=== PATIENT | male | born 1950 | race Caucasian/White ===

== ENCOUNTER 2023-05-20 13:56 | Outpatient (OUT) | payer MEDICARE, OTHER, SELFPAY ==
--- NOTE | 2023-05-20 14:52 | CA_ITS ---
Patient: NETTIE HERNANDEZ Exam Date: 05/20/2023 : 1950 Gender:M Ordering : DR ELIZABETH PAGE M.D. Admission #: Family : Order #: [id number] CLICK HERE TO VIEW EXAM ECHOCARDIOGRAM REPORT PROCEDURE: CARDIO PULMONARY ECHOCARDIO M/2D COMP INDICATIONS: Chronic diastolic heart failure COMPARISON: None. DESCRIPTION: COMPLETE ECHOCARDIOGRAM Real-time transthoracic echocardiography with 2D, M-mode, spectral and color flow Doppler performed. QUALITY: Technical quality was good. LEFT VENTRICLE: Normal chamber size. Mild concentric left ventricular hypertrophy. Global left ventricular systolic function is normal. LV EF: Estimated left ventricular ejection fraction is 65% DIASTOLIC: Diastolic function is indeterminate. ATRIAL SEPTUM: LEFT ATRIUM: Mild dilatation. RIGHT ATRIUM: Mild dilatation. RIGHT VENTRICLE: Normal chamber size. Normal right ventricular systolic function. TRICUSPID VALVE: Normal mobility and thickness. No stenosis with trivial regurgitation. Unable to assess right-sided pressures due to lack of measurable tricuspid regurgitation. MITRAL VALVE: Normal mobility and thickness. No evidence of mitral valve stenosis. There is no mitral annular calcification. Trivial mitral regurgitation. AORTIC VALVE: Normal trileaflet appearance. No visible sclerosis. Normal leaflet mobility. No evidence of aortic valve stenosis. No aortic regurgitation. AORTIC ROOT: Normal diameter and appearance. PULMONIC VALVE: Normal thickness and mobility. No stenosis. Trivial regurgitation. PERICARDIUM: No evidence of pericardial effusion. IVC: Collapses with inspirations. Normal size. PLEURA: CONCLUSION: 1. Mild concentric left ventricular hypertrophy with normal systolic function. Estimated LVEF is 65%. 2. Normal right ventricular size and systolic function. 3. Mild biatrial dilatation. 4. No significant valvular dysfunction. 5. Unable to assess right-sided pressures due to lack of measurable tricuspid regurgitation. Adult Echocardiography Procedure Report Left Ventricle LVEDD (3.7 - 5.6 cm): 4.48 cm LVESD (2.2 - 4.0 cm): 2.75 cm LVIVS thickness (0.6 - 1.2 cm): 1.28 cm LVPW thickness (0.5 - 1.0 cm): 1.04 cm e': 0.08 m/s E - e': 9.50 LVOT Max Gradient: 6.26 mm[Hg] LVOT Area (cm2): 1.25 m/s Peak Velocity (LVOT): 1.25 m/s Mean Velocity (LVOT): 0.79 m/s LVOT Diameter 2.16 cm Left Ventricular Ejection Fraction: 65% Left Atrium LA Volume Index (2D A2C): 41.03 ml/m2 Left Atrium Systolic Dimension: 4.08 cm Mitral Valve MV E to A Ratio: 1.19 Mitral Valve A-Wave Peak Velocity: 0.60 m/s Mitral Valve E-Wave Peak Velocity: 0.72 m/s Right Ventricle RV Internal Diastolic Dimension: 3.59 cm Aorta AO Root Diam: 2.92 cm Ascending Ao Diam: 2.93 cm Aortic Valve AoV Area (Peak Vito): 3.36 cm2, 3.36 cm2 AoV Area (VTI): 3.01 cm2, 3.01 cm2 Peak Velocity(Antegrade Flow): 1.37 m/s Peak Gradient(Antegrade Flow): 7.48 mm[Hg] Mean Velocity(Antegrade Flow): 0.88 m/s Mean Gradient(Antegrade Flow): 3.67 mm[Hg] Velocity Time Integral: 31.91 cm Tricuspid Valve Peak Velocity (Regurgitant Flow): 1.72 m/s, 1.63 m/s Pulmonic Valve Mean Gradient: 1.66 mm[Hg], 1.69 mm[Hg] Mean Velocity: 0.60 m/s, 0.61 m/s Peak Velocity: 0.95 m/s Peak Gradient: 3.82 mm[Hg], 3.44 mm[Hg] Right Atrium Right Atrium Systolic Pressure: 47.12 ml, 47.12 ml Dictated by: Elizabeth Page M.D. on 05/20/2023 at 19:25 Approved by: Elizabeth Page M.D. on 05/20/2023 at 19:30
== END 2023-05-20 13:57 | disposition home or self-care (01) ==
LOC: CARD 14:03
PROVIDERS: Visit Provider Internal Medicine Interventional Cardiology
DX: I50.22 Chronic systolic (congestive) heart failure (principal)
CPT/HCPCS: 93306

== ENCOUNTER 2023-07-05 11:01 | Outpatient (OUT) | payer MEDICARE, OTHER, SELFPAY ==
--- NOTE | 2023-07-05 | XR_ITS ---
The [address] [address] Patient Name: NETTIE HERNANDEZ MRN: [id number] date: 1950 Sex: M Assigned Patient Location: Current Patient Location: Accession/Order Number: [id number] Exam Date: 07/05/2023 11:30 Report Date: 07/06/2023 19:02 At the request of: SHON DIAZ Procedure: XR foot SAHARA min 3V STUDY: XR foot SAHARA min 3V, [id number] HISTORY: BILATERAL FOOT PAIN COMPARISON: Right foot x-rays 03/30/2020 and bilateral foot x-rays 04/24/2019. FINDINGS: Right foot: No acute fracture, dislocation, or suspicious osseous lesion. Talocalcaneal fusion hardware is intact and similar alignment. No evidence of loosening or infection. 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 Mild osteoarthritis at the dorsal talonavicular articulation, slightly worse. Minimal osteoarthritis at the first metatarsophalangeal joint, similar. Medium-sized plantar calcaneal spur, similar. First metatarsophalangeal angle (normal less than or equal to 15 degrees) -26 degrees, previously 20 degrees on 03/30/2020. Calcaneal pitch angle (normal 20-30 degrees): -34 degrees Left foot: No acute fracture, dislocation, or suspicious osseous lesion. Minimal osteophytosis at the first metatarsophalangeal joint and mild osteoarthritis at the fourth tarsometatarsal joint, similar. Mild osteoarthritis at the articulation of the calcaneus and cuboid, similar. Mild osteoarthritis at the dorsal talonavicular joint, similar. Small plantar calcaneal spur and moderate Achilles insertional enthesopathy, similar. First metatarsophalangeal angle (normal less than or equal to 15 degrees) -37 degrees, previously 38 degrees. Calcaneal pitch angle (normal 20-30 degrees): -29 degrees IMPRESSION: 1. Bilateral hallux valgus, similar on the left and mildly worse on the right. 2. Varying degrees of osteoarthritis in both feet. 3. Talocalcaneal fusion hardware in the right foot appears intact without evidence of complication. Electronically authenticated by: KYLEE MCKEON Date: 07/06/2023 19:02
== END 2023-07-05 11:02 | disposition home or self-care (01) ==
LOC: WC 11:01
PROVIDERS: Visit Provider Podiatrist Foot & Ankle Surgery
DX: M79.671 Pain in right foot (principal); L97.512 Non-pressure chronic ulcer of other part of right foot with fat layer exposed
CPT/HCPCS: 11042; 73630; G0463

== ENCOUNTER 2023-07-18 10:56 | Outpatient (OUT) | payer MEDICARE, OTHER, SELFPAY | END 2023-07-18 10:57 | disposition home or self-care (01) | LOC: WC 10:57 | PROVIDERS: Visit Provider Podiatrist Foot & Ankle Surgery | DX: L97.512 Non-pressure chronic ulcer of other part of right foot with fat layer exposed (principal) | CPT/HCPCS: 11042; 11055 ==

== ENCOUNTER 2023-08-06 10:01 | Outpatient (OUT) | payer MEDICARE, OTHER, SELFPAY | END 2023-08-06 10:02 | disposition home or self-care (01) | LOC: WC 10:01 | PROVIDERS: Visit Provider Podiatrist Foot & Ankle Surgery | DX: L84 Corns and callosities (principal); L97.512 Non-pressure chronic ulcer of other part of right foot with fat layer exposed | CPT/HCPCS: 11055; G0463 ==

== ENCOUNTER 2024-06-23 11:48 | Outpatient (OUT) | payer MEDICARE, OTHER, SELFPAY ==
--- NOTE | 2024-06-23 | XR_ITS ---
[address] [address] Patient Name: NETTIE HERNANDEZ MRN: [id number] date: 1950 Sex: M Assigned Patient Location: Current Patient Location: Accession/Order Number: [id number] Exam Date: 06/23/2024 11:55 Report Date: 06/23/2024 13:02 At the request of: SHON DIAZ Procedure: XR ankle SAHARA min 3V EXAMINATION: XR ankle SAHARA min 3V, XR foot SAHARA min 3V HISTORY: BILATERAL ANKLE PAIN COMPARISON: No relevant comparison available. FINDINGS: RIGHT FINDINGS: BONES: Subtalar fusion with 3 cannulated screws, there is bony bridging. Bone graft harvesting distal tibia. Moderate plantar enthesopathic spurring of the calcaneus. SOFT TISSUES: Negative. No visible soft tissue swelling. OTHER: Negative. LEFT FINDINGS: BONES: No acute fracture or dislocation. Mild to moderate enthesopathic spurring of the calcaneus at the Achilles and plantar insertions. Mild degenerative changes with joint space narrowing. SOFT TISSUES: Negative. No visible soft tissue swelling. OTHER: Negative. XR/XR ankle SAHARA min 3V IMPRESSION: RIGHT CONCLUSION: Subtalar fusion with bony bridging LEFT CONCLUSION: Degenerative changes Electronically authenticated by: DARRYL GRIDER Date: 06/23/2024 13:02
--- NOTE | 2024-06-23 | XR_ITS ---
[address] [address] Patient Name: NETTIE HERNANDEZ MRN: [id number] date: 1950 Sex: M Assigned Patient Location: Current Patient Location: Accession/Order Number: [id number] Exam Date: 06/23/2024 11:55 Report Date: 06/23/2024 13:02 At the request of: SHON DIAZ Procedure: XR foot SAHARA min 3V EXAMINATION: XR ankle SAHARA min 3V, XR foot SAHARA min 3V HISTORY: BILATERAL ANKLE PAIN COMPARISON: No relevant comparison available. FINDINGS: RIGHT FINDINGS: BONES: Subtalar fusion with 3 cannulated screws, there is bony bridging. Bone graft harvesting distal tibia. Moderate plantar enthesopathic spurring of the calcaneus. SOFT TISSUES: Negative. No visible soft tissue swelling. OTHER: Negative. LEFT FINDINGS: BONES: No acute fracture or dislocation. Mild to moderate enthesopathic spurring of the calcaneus at the Achilles and plantar insertions. Mild degenerative changes with joint space narrowing. SOFT TISSUES: Negative. No visible soft tissue swelling. OTHER: Negative. XR/XR foot SAHARA min 3V IMPRESSION: RIGHT CONCLUSION: Subtalar fusion with bony bridging LEFT CONCLUSION: Degenerative changes Electronically authenticated by: DARRYL GRIDER Date: 06/23/2024 13:02
--- OUTSIDE RECORDS SUMMARY | 2024-06-23 12:06 | XMS_ITS | CCD ---
Author Organization [facility] Inform ion Partnership [facility] Care Team Providers Care Counter Intelligence Technician Name Role Phone JOSE FISH Referring Unavailable NKECHI GHOSH Primary Care Unavailable LAMBERT COREY I Admitting Unavailable LAMBERT COREY I Attending Unavailable JOSE FISH Referring Unavailable NKECHI GHOSH Primary Care Unavailable Nkechi Ghosh Primary Care Provider BROOKS GAUTAM Admitting Unavailable BROOKS GAUTAM Attending Unavailable UNKNOWN, PROVIDER Primary Care Unavailable UNKNOWN, PROVIDER Referring Unavailable BROOKS GAUTAM Surgeon Unavailable [place] Procedure Practitioner Unavailab le MISC, DR SHEPHERD Admitting Unavailable MISC, DR SHEPHERD Attending Unavailable MISC, DR SHEPHERD Consulting Unavailable MISC, DR SHEPHERD Primary Care Unavailable RENETTA BUNCH Admitting Unavailable WEST, DR DARRYL Kothari Consulting Unavailable RENETTA BUNCH Attending Unavailable RENETTA BUNCH Consulting Unavailable MOUKARBEL, DR JOHNSON Attending Unavailable MOUKARBEL, DR JOHNSON Consulting Unavailable MOUKARBEL, DR JOHNSON Admitting Unavailable AUGIE, DR ARBOLEDA Consulting Unavailable WEST, DR DARRYL Kothari Consulting Unavailable MISC, DR SHEPHERD Attending Unavailable MISC, DR SHEPHERD Primary Care Unavailable MISC, DR SHEPHERD Admitting Unavailable MISC, DR SHEPHERD Consulting Unavailable MOUKARBEL, DR JOHNSON Admitting Unavailable MOUKARBEL, DR JOHNSON Attending Unavailable MOUKARBEL, DR JOHNSON Consulting Unavailable Clare West Consulting Unavailable MISC, DR SHEPHERD Attending Unavailable MISC, DR SHEPHERD Consulting Unavailable MISC, DR SHEPHERD Primary Care Unavailable MISC, DR SHEPHERD Admitting Unavailable MOUKARBEL, DR JOHNSON Admitting Unavailable MOUKARBEL, DR JOHNSON Attending Unavailable MOUKARBEL, DR JOHNSON Consulting Unavailable Nkechi Ghosh DO Primary Care Provider YARELIS MCALLISTER Attending Unavailable YARELIS MCALLISTER Attending Unavailable TIFFANIE JULIO Attending Unavailable AME DEWEY Attending Unavailable Allergies Allergy Classification Reported Allergen(s) Allergy Type Date of Onset Reaction(s) Facility Amino Acids (2 sources) Amino Acids Drug Allergy 8 [facility] Repository (3 sources) Lisinopril; Translations: [LISINOPRIL] Drug Allergy 0 Other (See Comments) [place], [place] (1 source) Lisinopril Allergy to substance 0 [facility] Healthcare Work Phone: Medications Current Medications Medication Drug Class(es) Dates Sig (Normalized) Sig (Original) amiodarone hydrochloride 100 mg oral tablet (2 sources) Antiarrhythmic take 1 tablet by mouth once daily amiodarone (PACERONE) 100 MG tablet Take 100 mg by mouth daily 0 Active apixaban 5 mg oral tablet (3 sources) Factor Xa Inhibitor apixaban (El iquis) 5 MG tablet every 12 (twelve) hours. 0 Active apixaban (ELIQUI S) 5 MG TABS tablet Take by mouth 2 times daily 0 Active ascorbic acid 500 mg oral tablet (2 sources) Vitamin C take 1 tablet by mouth once daily vitamin C (ASCORBIC ACID) 500 MG tablet Take 500 mg by mouth daily 0 Active aspirin 81 mg oral tablet (2 sources) Platelet Aggregation Inhibitor, Nonsteroidal Anti-inflammatory Drug take 0.5 tablet by mouth once daily aspirin 81 MG tablet Take 81 mg by mouth daily Take 1/2 tablet 0 Active atorvastatin 40 mg oral tablet (3 sources) HMG-CoA Reductase Inhibitor atorvastatin (Lipito r) 40 MG tablet 1 (one) time each day at the same time. 0 Active atorvastatin (LI PITOR) 40 MG tablet Take 20 mg by mouth daily 0 Active calcium chloride 0.0014 meq/ml / potassium chloride 0.004 meq/ml / sodium chloride 0.103 meq/ml / sodium lactate 0.028 meq/ml injectable solution (1 source) Start: 04-22-2020 lactated ringe rs infusion carvedilol 3.125 mg oral tablet (3 sources) alpha-Adrenergic Melissa, beta-Adrenergic Melissa carvedilol (Coreg) 3.125 MG tablet every 12 (twelve) hours. 0 Active take 1 tablet by tyrel twice daily at mealtime carvedilol (COREG) 3.125 MG tablet Take 3.125 mg by mouth 2 times daily (with meals) 0 Active cholecalciferol 0.025 mg ora l capsule (3 sources) Vitamin D cholecalciferol (Vitamin D-3) 25 MCG (1000 UT) capsule 1 capsule 1 (one) time each day at the same time. 0 Active Cholecalciferol (VITAMIN D3 PO) Take by mouth 0 Active Coenzyme Q10 (CO Q10 PO) (2 sources) Coenzyme Q10 (CO Q10 PO) Take by mouth daily 0 Active furosemide 40 mg oral tablet (3 sources) Loop Diuretic furosemide (Lasi x) 40 MG tablet 1 (one) time each day at the same time. 0 Active take 1 tablet by mouth twice aldo ly furosemide (LASIX) 40 MG tablet Take 40 mg by mouth 2 times daily 0 Active Lavender Oil oil (1 source) Lavender Oil oil as directed 0 Active LAVENDER OIL PO (2 sources) LAVENDER OIL PO Take by mouth 0 Active melatonin 5 mg oral tablet (3 sources) take 1 tablet by mouth in the morning melatonin 5 MG tablet Take 5 mg by mouth in the morning. 0 Active pantoprazole 20 mg delayed release oral tablet (2 sources) Proton Pump Inhibitor take 1 tablet by mouth once daily pantoprazole (PROTONIX) 20 MG tablet Take 20 mg by mouth daily 0 Active sacubitril 97 mg / valsartan 103 mg oral tablet (3 sources) Angiotensin 2 Receptor Melissa sacubitril-valsartan (Entresto) 97-103 MG tablet every 12 (twelve) hours. 0 Active tadalafil 20 mg oral tablet (3 sources) Phosphodiesterase 5 Inhibitor tadalafil (Cialis) 20 MG tablet 1 tablet Orally for 30 day(s) 0 Active ubidecarenone 50 mg oral capsule (1 source) coenzyme Q-10 50 MG capsule Take by mouth. 0 Active zinc gluconate 50 mg oral tablet (3 sources) take 1 tablet by mouth in the morning zinc gluconate 50 MG tablet Take 50 mg by mouth in the morning. 0 Active Problems Active Problems Problem Classification Problem Date Documented Date Episodic/Chronic Cardiac dysrhythmias (9 sources) Unspecified atrial fibrillation; Translations: [Paroxysmal atrial fibrillation] Onset: 10-23-2017 Resolved: 05-15-2023 Chronic Cataract (1 source) Cataract of right eye; Translations: [Unspecified cataract] Onset: 05-15-2023 05-15-2023 Chronic Congestive heart failure; nonhypertensive (8 sources) Chronic systolic (congestive) heart failure; Translations: [Chronic systolic heart failure] Onset: 10-23-2017 Resolved: 05-15-2023 Chronic Coronary atherosclerosis and other heart disease (2 sources) Atherosclerotic heart disease of [place] coronary artery without angina pectoris; Translations: [Atherosclerotic heart disease of [place] coronary artery without angina pectoris] Onset: 06-17-2024 Chronic Disorders of lipid metabolism (3 sources) Hyperlipidemia; Translations: [Hyperlipidemia, unspecified] Onset: 05-15-2023 05-15-2023 Chronic Esophageal disorders (1 source) Gastroesophageal reflux disease; Translations: [Gastro-esophageal reflux disease without esophagitis] Onset: 05-15-2023 05-15-2023 Chronic Essential hypertension (1 source) Essential hypertension; Translations: [Essential (primary) hypertension] Onset: 05-15-2023 05-15-2023 Chronic Osteoarthritis (2 sources) Osteoarthritis; Translations: [Unspecified osteoarthritis, unspecified site] Onset: 05-15-2023 Resolved: 05-15-2023 05-15-2023 Chronic Residual codes; unclassified (1 source) Dependence on continuous positive airway pressure ventilation; Translations: [Dependence on other enabling machines and devices] Onset: 05-15-2023 05-15-2023 Chronic Residual codes; unclassified (1 source) Obstructive sleep apnea syndrome; Translations: [Obstructive sleep apnea (adult) (pediatric)] Onset: 05-15-2023 05-15-2023 Chronic Past or Other Problems Problem Classification Problem Date Documented Da te Episodic/Chronic Acquired foot deformities (1 source) Acquired cavus deformity of foot; Translations: [Other acquired deformities of unspecified foot] Onset: 05-15-2023 Resolved: 05-15-2023 05-15-2023 Episodic Immunizations and screening for infectious disease (4 sources) Contact with and (suspected) exposure to other viral communicable diseases; Translations: [CONTCT EXPS OTH VIRL COMMUNICABL DZ] Onset: 09-23-2020 Episodic Mood disorders (1 source) Mood disorders Onset: 05-15-2023 05-15-2023 Other acquired deformities (1 source) Deformity of foot; Translations: [Unspecified acquired deformity of unspecified lower leg] Onset: 05-15-2023 Resolved: 05-15-2023 05-15-2023 Episodic Other acquired deformities (1 source) Acquired deformity of left lower leg; Translations: [Unspecified acquired deformity of left lower leg] Onset: 05-15-2023 Resolved: 05-15-2023 05-15-2023 Episodic Other aftercare (5 sources) Other alf (current) drug therapy; Translations: [OTH SENIOR SUPPORT ANALYST CURRENT DRUG THERAPY] Onset: 09-07-2020 Episodic Other connective tissue disease (4 sources) Pain in right foot; Translations: [PAIN IN RIGHT FOOT] Onset: 03-30-2020 Episodic Other connective tissue disease (1 source) Arthrodesis status; Translations: [ARTHRODESIS STATUS] Onset: 04-03-2020 Episodic Other nutritional; endocrine; and metabolic disorders (1 source) Body mass index 30+ - obesity; Translations: [Body mass index (BMI) 36.0-36.9, adult] Onset: 12-14-2022 Resolved: 05-15-2023 05-15-2023 Chronic Residual codes; unclassified (1 source) Dependence on enabling machine or device; Translations: [Dependence on other enabling machines and devices] Onset: 05-15-2023 Resolved: 05-15-2023 05-15-2023 Chronic Residual codes; unclassified (1 source) Sleep apnea; Translations: [Sleep apnea, unspecified] Onset: 05-15-2023 Resolved: 05-15-2023 05-15-2023 Chronic Residual codes; unclassified (1 source) Sleep disorder; Translations: [Sleep disorder, unspecified] Onset: 05-15-2023 Resolved: 05-15-2023 05-15-2023 Episodic Results Test Name Value Interpretation Reference Range Facility Office Visiton 06-19-2024 Follow-up visit [id number] Nettie Ramirez 1950 M Date Provider Department Center 06/19/2024 AME WARD Family History Problem Relation Age of Onset Coronary artery disease Mother Heart attack Mother Stroke Mother Family Status - Relation Status Age at Mother Level of Service:07523 [place] OFFICE/OUTPATIENT ESTABLISHED LOW MDM 20 MIN Normal [facility] ECHOCARDIO M/2D COMPLETEon 0 03-07-2021 ECHOCARDIO M/2D COMPLETE Patient: NETTIE RAMIREZ Exam Date: 03/07/2021 : 1950 Gender:M Ordering : BROOKS GAUTAM MD Admission #: [id number] Family : Order #: [id number] CLICK HERE TO VIEW EXAM ECHOCARDIOGRAM REPORT PROCEDURE: CARDIO PULMONARY ECHOCARDIO M/2D COMP INDICATIONS: Chronic systolic heart failure COMPARISON: None. DESCRIPTION: COMPLETE ECHOCARDIOGRAM Real-time transthoracic echocardiography with 2D, M-mode, spectral and color flow Doppler performed. QUALITY: Technical quality was good. LEFT VENTRICLE: Normal chamber size. Normal left ventricular wall thickness. LV EF: Normal left ventricular ejection fraction, (>55%). DIASTOLIC: Normal diastolic function. ATRIAL SEPTUM: Visually appears intact. LEFT ATRIUM: Normal chamber size. RIGHT ATRIUM: Mild dilatation. RIGHT VENTRICLE: Normal chamber size. Normal right ventricular function. TRICUSPID VALVE: Normal mobility and thickness. No stenosis with trace regurgitation. No evidence of pulmonary hypertension. MITRAL VALVE: Normal mobility and thickness. No mitral valve prolapse. No evidence of mitral valve stenosis. There is no mitral annular calcification. Trace mitral regurgitation. AORTIC VALVE: Normal trileaflet appearance. Normal leaflet mobility. No evidence of aortic valve stenosis. Trace aortic regurgitation. AORTIC ROOT: Normal diameter and appearance. PULMONIC VALVE: Normal thickness and mobility. No stenosis. PERICARDIUM: No evidence of pericardial effusion. IVC: Collapses with inspirations. CONCLUSION: Global left ventricular systolic function is normal; ejection fraction is estimated to be 60-65%. Mild right atrial enlargement. The right ventricle is normal in size and systolic function. No significant valvular abnormalities. Adult Echocardiography Procedure Report Left Ventricle LVEDD (3.7 - 5.6 cm): 4.38 cm LVESD (2.2 - 4.0 cm): 2.71 cm LVIVS thickness (0.6 - 1.2 cm): 1.09 cm LVPW thickness (0.5 - 1.0 cm): 8.54 mm e': 7.68 cm/s E - e': 10.30 LVOT Area (cm2): 4.15 cm2 Peak Velocity (LVOT): 98.70 cm/s LVOT Diameter 2.30 cm Left Ventricular Ejection Fraction: 68.50 % Left Ventricular Ejection Fraction (A2C): 65 % Left Ventricular Ejection Fraction (A4C): 65 % Left Atrium LA Volume Index (2D A2C): 32.10 ml/m2 Left Atrium Systolic Dimension: 4.00 cm Left Atrium Systolic Area(A2C): 22.60 cm2 Left Atrium Systolic Area(A4C): 23.70 cm2 Left Atrium Systolic Volume(A2C): 76235 mm3 Left Atrium Systolic Volume(A4C): 88584 mm3 Mitral Valve MV E to A Ratio: 1.10 Mitral Valve A-Wave Peak Velocity: 63.20 cm/s Mitral Valve E-Wave Peak Velocity: 76.00 cm/s Deceleration [place]: 4120 mm/s2 Mitral Valve A-Wave Peak Velocity: 71.10 cm/s Mitral Valve E-Wave Peak Velocity: 79.00 cm/s Right Ventricle RV Internal Diastolic Dimension: 3.46 cm Aorta AO Root Diam: 3.00 cm Aortic Valve Peak Velocity (Antegrade Flow): 134.00 cm/s AoV Area (Peak Vito): 3.02 cm2 Peak Velocity(Antegrade Flow): 140.00 cm/s Peak Gradient(Antegrade Flow): 8 mm[Hg] Tricuspid Valve Pulmonic Valve Peak Velocity: 84.20 cm/s Peak Gradient: 3 mm[Hg] Right Atrium Dictated by: Mckayla Geller M.D. on 03/07/2021 at 14:59 Approved by: Mckayla Geller M.D. on 03/07/2021 at 15:01 Normal [facility] BASIC METABOLIC PANELon - Calcium [Mass/Vol] 9.2 mg/dL Normal 8.6-10.3 [facility] Comment on above: Performed By: #### 0 [id number] #### [facility] [address] [place] [address], [facility] Chloride [Moles/Vol] 99 mmol/L Normal 98-107 [facility] Comment on above: Performed By: #### 0 0071 #### [facility] [address] [place] [address], [facility] CO2 [Moles/Vol] 27 mmol/L Normal 21-31 [facility] Comment on above: Performed By: #### 0 0071 #### [facility] [address] [place] [address], [place] Creatinine [Mass/Vol] 0.82 mg/dL Normal 0.70-1.30 [facility] Comment on above: Performed By: #### 0 0071 #### [facility] [address] [place] [address], [place] GFR/1.73 sq M.predicted among blacks MDRD (S/P/Bld) [Vol rate/Area] mL/min/{1.73_m2} Normal >60 [facility] Comment on above: Performed By: #### 0 0071 #### [facility] [address] [place] [address], [place] GFR/1.73 sq M.predicted among non-blacks MDRD (S/P/Bld) [Vol rate/Area] mL/min/{1.73_m2} Normal >60 [facility] Comment on above: Performed By: #### 0 0071 #### [facility] [address] [place] [address], [place] Glucose [Mass/Vol] 117 mg/dL High 70-100 [facility] Comment on above: Performed By: #### 0 0071 #### [facility] [address] [place] [address], [place] Potassium [Moles/Vol] 4.2 mmol/L Normal 3.5-5.1 [facility] Comment on above: Performed By: #### 0 0071 #### [facility] [address] [place] [address], [place] Sodium [Moles/Vol] 134 mmol/L Low 136-145 [facility] Comment on above: Performed By: #### 0 0071 #### [facility] [address] [place] [address], [place] Urea nitrogen [Mass/Vol] 15 mg/dL Normal 7-25 [facility] Comment on above: Performed By: #### 0 0071 #### [facility] [address] Cardiovascular Lab Reporton 01-04-2021 Cardiovascular Lab Report [facility] Patient Name: Nettie Ramirez [facility] MR #: [id number] Physician: Brooks Gautam MD Department of Service Date: 01/04/2021 Medicine Birthdate: 1950 Division of Room #: 3AB [id number] Cardiology Adult Cardiovascular Services [facility] [address] [place], [place] [address] Cardiovascular Laboratory Report ATRIAL FIBRILLATION ABLATION PROCEDURE NOTE DATE OF PROCEDURE: 01/04/2021 PERFORMING PHYSICIAN: Dr. Brooks Gautam CONSENT: Patient NAME OF THE PROCEDURE: Pulmonary Vein Isolation and Comprehensive EP study. INDICATIONS FOR PROCEDURE: 1. Persistent atrial fibrillation non responsive to pharmacologic therapy. PROCEDURES PERFORMED: 1. Sonosite guided venous access as noted below and images stored. 2. Comprehensive EP study and catheter ablation for persistent atrial fibrillation through the pulmonary vein isolation technique. This includes right atrial recording and pacing, His bundle recording and right ventricular recording and pacing. 3. Intracardiac EP 3D mapping. 4. Intracardiac echocardiogram 5. Left atrial and coronary sinus recording and pacing to assess ablation results. 6. Left heart pressure measurements and LV pacing and recording. 7. Induction of arrhythmia and testing of ablation results using intravenous adenosine infusion. 8. Fluroscopy. FLUROSCOPY: 2min 40s/ 55mGray PROCEDURE NOTE: Risks, benefits and alternatives of the procedure were discussed with the patient and family who agreed to proceed. Please refer to my consult note for details of the discussion and of indications. The patient is a 70-year-old gentleman with a previous history of atrial fibrillation that was noted to have recurred despite medications with the amiodarone. Given the symptoms, he presented for AFib ablation The patient was brought to the EP lab and a procedural pause was performed identifying the patient, the procedure. The patient presented in SR and JEAN-PIERRE was performed to rule out CRISTINA clot. ICE imaging was used to rule out CRISTINA clot. Both the groins were then prepared and draped. Ultrasound was used to determine the course and patency of the femoral veins on both sides and they were noted to be patent and the image stored in Merge. After infiltration with 1% lidocaine, 4 venous sheaths were placed in the right as noted below and a radial arterial line was placed by Anesthesia team. RFV: 8Fx4 ThermoCool SF Bi-Directional over SL1/ Vizigo, SL1:Pentaray, ICE catheter. 8Fx1 CS Catheter (EZ Steer) 10,000U Heparin bolus was given followed by continuous intravenous drip to target ACT around 350. An intracardiac ultrasound catheter was inserted into the right atrium to examine the right atrial anatomy, atrial septum, pulmonary vein anatomy and to monitor for pericardial effusion and guide transseptal access. At baseline, there was mild pericardial effusion and no CRISTINA clot but the anatomy suggested a rotated heart. LA was noted to be mildly enlarged and patient has lipomatous hypertrophy. Esophagus was mapped using the DataRPMtar and PlaceBloggerUND 3D mapping software and noted to be in slanted position towards the left side along the path of left WACA psoteriorly. Double transseptal access technique was used to cross to the left side. Following the first transeptal access, which was achieved via puncture of the thinner aspect of the septum using Staci needle, Pentaray catheter was placed in the left atrium. Mean LA pressures were noted to 23mmHg at baseline. LV pacing revealed concentric VA conduction. Following this, a 2nd transseptal was performed, which also documented the pressures of 24 mmHg. With repeat access, SL1 sheath was exchanged over a wire to 8.5F Vizigo sheath. Pulmonary vein and left atrial anatomic mapping was performed using a 3-D CARTO computer-based mapping system. Identification of the pulmonary vein ostia was assisted by the left atrial signals on the ablation catheter, the ICE catheter and the Pentaray catheter placed in the individual pulmonary veins. There was signals noted in all the veins. A temperature probe was placed in the esophagus to monitor and avoid rise of temperature by more than a degree celsius. Wide area circumferential ablation technique (WACA) was then performed. Power settings were 30watts in the anterior aspect of WACA and 25W while ablating on the posterior wall as well as the roof. There was a deep ridge which made contact on the anterior WACA challenging. Following left WACA, entrance block was observed. The esophagus was more towards the right side and max temp of rise to 37C from 35.5C. Right sided PVI was then performed using a WACA approach with care to pace the anterior aspect of WACA and russel to ensure there was no phrenic capture. Upon completion of the right sided WACA, entrance block was noted. Thereafter perivenous (more content not included)... Normal [facility] POC GLUCOSE LABon 01-04-2021 Glucose [Mass/Vol] 121 mg/dL High 70-100 [facility] Comment on above: Performed By: #### [id number] #### [facility] [address] [facility] [place] [address], [facility] CREATININE BLOODon Creatinine [Mass/Vol] 0.77 mg/dL Normal 0.70-1.30 [facility] Comment on above: Performed By: #### 2 5656 #### [facility] [address] [facility] [place] [address], [facility] GFR/1.73 sq M.predicted among blacks MDRD (S/P/Bld) [Vol rate/Area] mL/min/{1.73_m2} Normal >60 [facility] Comment on above: Performed By: #### 2 [id number] #### [facility] [address] [facility] [place] [address], [facility] GFR/1.73 sq M.predicted among non-blacks MDRD (S/P/Bld) [Vol rate/Area] mL/min/{1.73_m2} Normal >60 [facility] Comment on above: Performed By: #### 2 5656 #### [facility] [address] [place] [address], [facility] CTA CHESTon 12-26-2020 CTA CHEST [facility] Department of Radiology [address] [place] [id number] ======== Patient Name: NETTIE RAMIREZ : 1950 Sex: M Age: Race: White Pt. Location: [id number] Patient Status: O Ordered Date: 11/04/2020 2:40:00 PM Completed Date: 12/26/2020 12:12 PM Requesting Provider: BROOKS GAUTAM Attending Provider: BROOKS GAUTAM Report Copy To: ELIZABETH CRAVEN V Signs & Symptoms: I48.0 Paroxysmal atrial fibrillation I10 History: Claudette patient will need labs Schedule week of December 26. MEDICARE no pc required [id number] 11/09/20 *kw Comments: Pre-Ablation on 01/04/21 , gaited Exam: CTA CHEST ======== Clinical history: Paroxysmal atrial fibrillation Technique: CT angiography of the thoracic aorta was performed following the intravenous administration of 100 mL Omnipaque 350. Multidetector CT angiogram performed through the thoracic aorta without complication, including source images and maximum intensity projection 3-D images displayed and reviewed on a PACS workstation by the radiologist. Automated exposure control was utilized. Comparison: 10/08/2017 Findings: The thoracic aorta is normal in caliber throughout its course. No aneurysm is seen. No significant atherosclerotic changes are identified. The origins and great vessels are widely patent. There are multiple prominent mediastinal lymph nodes, none of which appear pathologically enlarged. No hilar adenopathy is seen. There is a 7 mm poorly defined semisolid nodule in the posterior aspect of the right lower lobe (series 4 image 291). There is minimal left basilar scar and/or atelectasis. Otherwise clear from active process. There is residual contrast material and air within the slightly distended esophagus. Impression: 1. Normal CT angiogram of the thoracic aorta. 2. 7 mm semisolid nodule in the right lower lobe. A repeat CT thorax in 6 months is recommended. All CT scans at this facility use dose modulation, iterative reconstruction, and/or weight based dosing when appropriate to reduce radiation dose to as low as reasonably achievable. The Electronically signed: Darryl Posey. Transcribed by: [email or web address], User Resident: Electronically Signed by: DARRYL POSEY @ 12/26/2020 12:41 PM Normal [facility] Comment on above: Order Comment: Pre-A blation on 01/04/21 , gaited Covid-19 PCR (CVDTB)on 09-06 EUA Statement SEE BELOW Normal [facility] Comment on above: Result Comment: This test is not yet approved or cleared by the [place] FDA. When there are no FDA-approved or cleared tests available, and other criteria are met, FDA can make tests available under an emergency access mechanism called an Emergency Use Authorization (EUA). The EUA for this test is supported by the Sensor Technician of Health and Human Service?s (HHS?s) declaration that circumstances exist to justify the emergency use of in vitro diagnostics for the detection and/or diagnosis of the virus that causes COVID-19. This EUA will remain in effect (meaning this test can be used) for the duration of the COVID-19 declaration justifying emergency of IVDs, unless it is terminated or revoked by FDA (after which the test may no longer be used). When diagnostic testing is negative, the possibility of a false negative should be considered in the context of a patients recent exposures and the presence of clinical signs and symptoms consistent with SARS-CoV-2. Performed By: #### [facility] ####[facility] [address] [id number] Archuleta SARS-CoV-2 (COVID-19) RNA EMMANUEL+probe Ql (Unsp spec) Not detected Normal NOT DETECTED [facility] Comment on above: Result Comment: This test is not yet approved or cleared by the [place] FDA. When there are no FDA-approved or cleared tests available, and other criteria are met, FDA can make tests available under an emergency access mechanism called an Emergency Use Authorization (EUA). The EUA for this test is supported by the Sensor Technician of Health and Human Service's (HHS's) declaration that circumstances exist to justify the emergency use of in vitro diagnostics for the detection and/or diagnosis of the virus that causes COVID-19. This EUA will remain in effect (meaning this test can be used) for the duration of the COVID-19 declaration justifying emergency of IVDs, unless it is terminated or revoked by FDA (after which the test may no longer be used). Performed By: #### [facility] ####[facility] [address] [place] [address] Kathe CBC AUTO DIFFon 09-19-2020 BASO # 0.0 103/ul Normal 0.0-0.1 [facility] Comment on above: Performed By: #### C BC ####[facility] [address] [place] [address] Kathe Basophils/100 WBC (Bld) 0.3 % Normal 0.2-2.0 [facility] Comment on above: Performed By: #### C BC ####[facility] [address] [place] [address] Kathe EO # 0.1 103/ul Normal 0.0-0.7 [facility] Comment on above: Performed By: #### C BC ####[facility] [address] [place] [address] Kathe Eosinophils/100 WBC (Bld) 1.5 % Normal 0.9-7.0 [facility] Comment on above: Performed By: #### C BC ####[facility] [address] [place] [address] Kathe Erythrocyte distribution width (RBC) [Ratio] 13.0 % Normal 11.0-15.0 [facility] Comment on above: Performed By: #### C BC ####[facility] [address] [place] [address] Kathe Hematocrit (Bld) [Volume fraction] 45.1 % Normal 42.0-54.0 [facility] Comment on above: Performed By: #### C BC ####[facility] [address] [place] [address] Kathe Hemoglobin (Bld) [Mass/Vol] 14.3 g/dL Normal 14.0-18.0 [facility] Comment on above: Performed By: #### C BC ####[facility] [address] [place] [address] Kathe IG # 0.01 10e3/ul Normal 0.00-0.03 [facility] Comment on above: Performed By: #### C BC ####[facility] X[address] [place] [address] Kathe IG % 0.1 % Normal 0.0-0.5 [facility] Comment on above: Performed By: #### C BC ####[facility] Z[address] [place] [address] Kathe LYMPH # 1.5 103/ul Normal 1.2-3.8 [facility] Comment on above: Performed By: #### C BC ####[facility] Q[address] [place] [address] Kathe Lymphocytes/100 WBC (Bld) 22.8 % Normal 20.5-60.0 [facility] Comment on above: Performed By: #### C BC ####[facility] Zipj[address] [place] [address] Kathe MANUAL DIFF REQ NO Normal [facility] Comment on above: Performed By: #### C BC ####[facility] Our[address] [place] [address] Kathe MCH (RBC) [Entitic mass] 31.3 pg Normal 25.9-34.0 [facility] Comment on above: Performed By: #### C BC ####[facility] [address] [place] [address] Kathe MCHC (RBC) [Mass/Vol] 31.7 g/dL Normal 29.9-35.2 [facility] Comment on above: Performed By: #### C BC ####[facility] M[address] [place] [address] Kathe MCV (RBC) [Entitic vol] 98.7 fL Critically high 80.0-94.0 [facility] Comment on above: Performed By: #### C BC ####[facility] [address] [id number] Archuleta MONO # 0.8 103/ul Normal 0.3-0.8 [facility] Comment on above: Performed By: #### C BC ####[facility] [address] [id number] Garciaen Monocytes/100 WBC (Bld) 12.2 % Critically high 1.7-12.0 [facility] Comment on above: Performed By: #### C BC ####[facility] Jrjljoydlo2061 [address] Garciaen NEUT # 4.2 103/ul Normal 1.4-6.5 [facility] Comment on above: Performed By: #### C BC ####[facility] [address] [place], [place] [address]oanh Archuleta Neutrophils/100 WBC (Bld) 63.1 % Normal 43.0-75.0 [facility] Comment on above: Performed By: #### C BC ####[facility] [address] [place], [place] [id number] Archuleta Platelet mean volume (Bld) [Entitic vol] 9.8 fL Normal 9.5-13.5 [facility] Comment on above: Performed By: #### C BC ####[facility] [address] [place], [place] [address]Geroanh Garciaen PLT 137 103/ul Critically low 150-[address] [facility] Comment on above: Performed By: #### C BC ####[facility] [address] [id number] Kathe RBC 4.57 106/ul Critically low 4.70-6.10 [facility] Comment on above: Performed By: #### C BC ####[facility] [address] [id number] Kathe WBC 6.7 103/ul Normal 4.0-11.0 [facility] Comment on above: Performed By: #### C BC ####[facility] [address] [place], [place] [address]NalikeLizett Archuleta Covid-19 PCR (CVDTB)on 09-06 EUA Statement SEE BELOW Normal [facility] Comment on above: Result Comment: This test is not yet approved or cleared by the [place] FDA. When there are no FDA-approved or cleared tests available, and other criteria are met, FDA can make tests available under an emergency access mechanism called an Emergency Use Authorization (EUA). The EUA for this test is supported by the Sensor Technician of Health and Human Service?s (HHS?s) declaration that circumstances exist to justify the emergency use of in vitro diagnostics for the detection and/or diagnosis of the virus that causes COVID-19. This EUA will remain in effect (meaning this test can be used) for the duration of the COVID-19 declaration justifying emergency of IVDs, unless it is terminated or revoked by FDA (after which the test may no longer be used). When diagnostic testing is negative, the possibility of a false negative should be considered in the context of a patients recent exposures and the presence of clinical signs and symptoms consistent with SARS-CoV-2. Performed By: #### C VDTB #### [facility] [address] [place], [place] [address] Lizett Archuleta SARS-CoV-2 (COVID-19) RNA EMMANUEL+probe Ql (Unsp spec) Not detected Normal NOT DETECTED [facility] Comment on above: Result Comment: This test is not yet approved or cleared by the [place] FDA. When there are no FDA-approved or cleared tests available, and other criteria are met, FDA can make tests available under an emergency access mechanism called an Emergency Use Authorization (EUA). The EUA for this test is supported by the [place] of Health and Human Service's (HHS's) declaration that circumstances exist to justify the emergency use of in vitro diagnostics for the detection and/or diagnosis of the virus that causes COVID-19. This EUA will remain in effect (meaning this test can be used) for the duration of the COVID-19 declaration justifying emergency of IVDs, unless it is terminated or revoked by FDA (after which the test may no longer be used). Performed By: #### C VDTB #### [facility] [address] [id number] Lizett Kathe PROF CHEM 8 (BAS METB)on Anion gap [Moles/Vol] 17.3 mmol/L Normal [facility] Comment on above: Performed By: #### B MP #### [facility] [address] [id number] Lizett Kathe Calcium [Mass/Vol] 9.5 mg/dL Normal 8.4-10.2 [facility] Comment on above: Performed By: #### B MP #### [facility] [address] [address] Lizett Kathe Chloride [Moles/Vol] 103 mmol/L Normal 98-107 [facility] Comment on above: Performed By: #### B MP #### [facility] [address] [place] [address] Lizett Kathe CO2 [Moles/Vol] 25.2 mmol/L Normal 22.0-30.0 [facility] Comment on above: Performed By: #### B MP #### [facility] [address] [place], [place] [address] Lizett Kathe Creatinine [Mass/Vol] 0.85 mg/dL Normal 0.66-1.25 [facility] Comment on above: Performed By: #### B MP #### [facility] [address] [place], [place] [address] Lizett Kathe EGFR-AF ESTONIAN >60 Normal >=60 [facility] Comment on above: Performed By: #### B MP #### [facility] [address] [place], [place] [address] Lizett Kathe EGFR-NON AF ESTONIAN >60 Normal >=60 [facility] Comment on above: Performed By: #### B MP #### [facility] [address] [address] Lizett Kathe Glucose [Mass/Vol] 102 mg/dL Normal 74-106 [facility] Comment on above: Performed By: #### B MP #### [facility] [address] [place], [place] [address] Lizett Kathe Potassium [Moles/Vol] 4.5 mmol/L Normal 3.4-5.0 [facility] Comment on above: Performed By: #### B MP #### [facility] [address] [place], [place] [address] Lizett Kathe Sodium [Moles/Vol] 141 mmol/L Normal 137-145 [facility] Comment on above: Performed By: #### B MP #### [facility] [address] [place], [place] [address] Lizett Kathe Urea nitrogen [Mass/Vol] 20.0 mg/dL Normal 9.0-20.0 [facility] Comment on above: Performed By: #### B MP #### [facility] [address] [place], [place] [address] Lizettoanh Garciaen Urea nitrogen/Creatinine [Mass ratio] 23.5 mg/mg Normal [facility] Comment on above: Performed By: #### B MP #### [facility] [address] [place], [place] [address] CHEST W CONon 09-07-2020 CT CHEST W CON EXAMINATION: CT CHES T W CON HISTORY: Atrial fibrillation hypertension COMPARISON: No relevant comparison available. TECHNIQUE: Multi-planar CT images were created with IV contrast. Axial, Coronal, and Sagittal images. Dose reduction techniques were achieved by using automated exposure control and/or adjustment of mA and/or kV according to patient size and/or use of iterative reconstruction technique. 100 mL Omnipaque 300 FINDINGS: LUNGS: Scattered subcentimeter pulmonary nodules the largest is identified in the medial basilar segment of the left lower lobe axial image #75 measuring 6 x 4 mm. Mildly increased bilateral peripheral diffuse interstitial lung markings. Mild emphysema with an left apical predominance PLEURA: No mass, effusion, or pneumothorax. VASCULATURE: No abnormality. DARIAN: No mass or adenopathy. MEDIASTINUM: No mass or adenopathy. CARDIAC: Prominent heart size. Extensive coronary atherosclerosis AORTA: No aortic aneurysm or dissection. Mild atherosclerosis CHEST WALL: No mass or axillary adenopathy. BONES: No bone lesion or fracture. LIMITED ABDOMEN: No suspicious findings. Limited images of the upper abdomen. OTHER: Negative. IMPRESSION: Mild interstitial lung disease with scattered nonspecific subcentimeter pulmonary nodules Prominent heart size with extensive coronary atherosclerosis Electronically authenticated by: DARRYL GRIDER Date: 2020-09-07 11:06 Normal [facility] LIVER PROFILEon 09-07-2020 Albumin [Mass/Vol] 3.8 g/dL Normal 3.5-5.0 [facility] Comment on above: Performed By: #### L IVER, TSH, T4 #### [facility] [address] [place], [place] [id number] Lizett Kathe Albumin/Globulin [Mass ratio] 1.0 {ratio} Normal [facility] Comment on above: Performed By: #### L IVER, TSH, T4 #### [facility] [address] [place], [place] [address] Lizett Kathe ALP [Catalytic activity/Vol] 60 U/L Normal 38-126 [facility] Comment on above: Performed By: #### L IVER, TSH, T4 #### [facility] [address] [place] [address] Lizett Kathe ALT [Catalytic activity/Vol] 16 U/L Critically low 21-72 [facility] Comment on above: Performed By: #### L IVER, TSH, T4 #### [facility] [address] [place], [place] [phone] Lizett Kathe AST [Catalytic activity/Vol] 17 U/L Normal 17-59 [facility] Comment on above: Performed By: #### L IVER, TSH, T4 #### [facility] [address] [phone] Lizett Kateh BILI, CONJUGATED 0.3 mg/dL Normal 0.0-0.3 [facility] Comment on above: Performed By: #### L IVER, TSH, T4 #### [facility] [address] [place], [place] [address] Lizett Kathe Bilirubin [Mass/Vol] 1.2 mg/dL Normal 0.2-1.3 [facility] Comment on above: Performed By: #### L IVER, TSH, T4 #### [facility] [address] [place], [place] [address] Lizett Kathe Globulin (S) [Mass/Vol] 3.8 g/dL Normal [facility] Comment on above: Performed By: #### L IVER, TSH, T4 #### [facility] [address] [place], [place] [address] Lizett Archuleta Protein [Mass/Vol] 7.6 g/dL Normal 6.1-8.2 [facility] Comment on above: Performed By: #### L IVER, TSH, T4 #### [facility] [address] [address] Lizett Archuleta T4on 09-07-2020 T4 [Mass/Vol] 9.40 ug/dL Normal 5.53-11.00 [facility] Comment on above: Performed By: #### L IVER, TSH, T4 #### [facility] [address] [place] [address] Lizett Archuleta TSHon 09-07-2020 TSH 1.447 uIU/mL Normal 0.470-4.680 [facility] Comment on above: Performed By: #### L IVER, TSH, T4 #### [facility] [address] [place], [place] [address] Lizett Archuleta TSH RANGE SEE BELOW Normal [facility] Comment on above: Result Comment: <0.3 4 UIU/ml HYPERTHYROID 0.34-5.60 UIU/ml EUTHYROID >5.60 UIU/ml HYPOTHYROID Performed By: #### L IVER, TSH, T4 #### [facility] [address] [place], [place] [address] Lizett Archuleta XR CHEST 2 Von 09-07-2020 XR CHEST 2 V EXAMINATION: XR CHES T 2 V HISTORY: Long-term current use of drug therapy COMPARISON: Chest x-ray 08/25/2019 FINDINGS: Two views are submitted. The lungs and pleural spaces are clear. Pulmonary vascular markings are normal. The cardiomediastinal silhouette is within normal limits. No bony lesions are shown. Lung volumes are stable. IMPRESSION: 1. No acute cardiopulmonary abnormality. 2. Stable lung volumes. Electronically authenticated by: CLARE WEST Date: 2020-09-07 11:49 Normal [facility] HEMOGLOBINon 08-10-2020 Hemoglobin (Bld) [Mass/Vol] 14.2 g/dL Normal 14.0-18.0 [facility] Comment on above: Performed By: #### H GB ####[facility] [address] [place], [place] [address]gqv[address] Kathe PROF CHEM 8 (BAS METB)on Anion gap [Moles/Vol] 9.9 mmol/L Normal [facility] Comment on above: Performed By: #### B MP #### [facility] [address] [id number] Lizett Kathe Calcium [Mass/Vol] 9.2 mg/dL Normal 8.4-10.2 [facility] Comment on above: Performed By: #### B MP #### [facility] [address] [place] [address] Lizett Kathe Chloride [Moles/Vol] 101 mmol/L Normal 98-107 [facility] Comment on above: Performed By: #### B MP #### [facility] [address] [phone] Lizett Kathe CO2 [Moles/Vol] 31.5 mmol/L Critically high 22.0-30.0 [facility] Comment on above: Performed By: #### B MP #### [facility] [address] [phone] Lizett Kathe Creatinine [Mass/Vol] 0.84 mg/dL Normal 0.66-1.25 [facility] Comment on above: Performed By: #### B MP #### [facility] [address] [address] Lizett Kathe EGFR-AF ESTONIAN >60 Normal >=60 [facility] Comment on above: Performed By: #### B MP #### [facility] [address] [address] Lizett Kathe EGFR-NON AF ESTONIAN >60 Normal >=60 [facility] Comment on above: Performed By: #### B MP #### [facility] [address] [phone] Lizett Kathe Glucose [Mass/Vol] 114 mg/dL Critically high 74-106 [facility] Comment on above: Performed By: #### B MP #### [facility] [address] [place], [place] [address] Lizett Kathe Potassium [Moles/Vol] 4.4 mmol/L Normal 3.4-5.0 [facility] Comment on above: Performed By: #### B MP #### [facility] [address] [place], [place] [address] Lizett Kathe Sodium [Moles/Vol] 138 mmol/L Normal 137-145 [facility] Comment on above: Performed By: #### B MP #### [facility] [address] [place], [place] [address] Lizett Kathe Urea nitrogen [Mass/Vol] 20.0 mg/dL Normal 9.0-20.0 [facility] Comment on above: Performed By: #### B MP #### [facility] [address] [phone] Lizett Kathe Urea nitrogen/Creatinine [Mass ratio] 23.8 mg/mg Normal [facility] Comment on above: Performed By: #### B MP #### [facility] [address] [place], [place] [address] Lizett Kathe COLONOSCOPY PROCEDUREon - No dictation [place], [place] COVID-19on 04-21-2020 SARS-CoV-2 [place], [place] SARS-CoV-2, PCR Not Detected Not Detected [place], [place] Comment on above: (NOTE) The Aptima SARS-CoV-2 assay is a nucleic acid amplification test intended for the qualitative detection of RNA from SARS-CoV-2 isolated and purified from nasopharyngeal (RETAIL SALESMAN), nasal and oropharyngeal (OP) swab specimens from patients with signs and symptoms of infection who are suspected of COVID-19. Results are for the identification of SARS-CoV-2 RNA. The SARS-CoV-2 RNA is generally detectable in nasopharyngeal and oropharyngeal swabs during the acute phase of infection. The Aptima SARS-CoV-2 Assay on the [employer] and [employer] Fusion system is intended for use by laboratory personnel specifically instructed and trained in the operation of the [place] [employer] [place] Fusion system. The Aptima SARS-CoV-2 assay is only for use under the Food and Drug Administration Emergency Use Authorization. Testing is limited to laboratories certified under the Clinical Laboratory Improvement Amendments of 1988 (CLIA), 42 U.S.C. 263a, to perform high complexity tests. Not Detected: Not detected does not preclude SARS-CoV-2 infection and should not be used as the sole basis for patient management decisions. Not detected results must be combined with clinical observations, patient history, and epidemiological information. The above 1 analytes were performed by [address] [address] SARS-CoV-2, Rapid [place], [place] Source .NASOPHARYNGEAL SWAB [place], [place] [id number] 04-21-2020 SARS-CoV-2 Not Detected Normal Not Detected [facility] Hospital Comment on above: Result Comment: (NOT E) The Aptima SARS-CoV-2 assay is a nucleic acid amplification test intended for the qualitative detection of RNA from SARS-CoV-2 isolated and purified from nasopharyngeal (RETAIL SALESMAN), nasal and oropharyngeal (OP) swab specimens from patients with signs and symptoms of infection who are suspected of COVID-19. Results are for the identification of SARS-CoV-2 RNA. The SARS-CoV-2 RNA is generally detectable in nasopharyngeal and oropharyngeal swabs during the acute phase of infection. The Aptima SARS-CoV-2 Assay on the [place] [employer] [place] Fusion system is intended for use by laboratory personnel specifically instructed and trained in the operation of the [place] [employer] [place] Fusion system. The Aptima SARS-CoV-2 assay is only for use under the Food and Drug Administration Emergency Use Authorization. Testing is limited to laboratories certified under the Clinical Laboratory Improvement Amendments of 1988 (CLIA), 42 U.S.C. ???263a, to perform high complexity tests. Not Detected: Not detected does not preclude SARS-CoV-2 infection and should not be used as the sole basis for patient management decisions. Not detected results must be combined with clinical observations, patient history, and epidemiological information. The above 1 analytes were performed by [address] [address] Performed By: #### C OVID #### [address] [address] Cage Cashier: Damion Aparicio MD [facility] [address] [place] [address] [place], [place] [id number] Cage Cashier: Mario Alberto Minor MD [facility] [address] [place] [address] Cage Cashier: Nettie Benoit MD [id number] 04-20-2020 SARS-CoV-2,Rapid Normal [facility] Comment on above: Performed By: #### C OVID #### [facility] [address] [place] [id number] Cage Cashier: Damion Aparicio MD [facility] [address] [place] [address] [place], [place] [id number] Cage Cashier: Mario Alberto Minor MD [facility] [address] [place] [address] Cage Cashier: Nettie Benoit MD SARS-CoV-2 [facility] Comment on above: Performed By: #### C OVID #### [facility] [address] [place] [id number] Cage Cashier: Damion Aparicio MD [facility] [address] [place] [address] [place] [address] Cage Cashier: Mario Alberto Minor MD [facility] [address] [place] [address] Cage Cashier: Nettie Benoit MD [id number] 04-19-2020 SARS-CoV-2 Source .NASOPHARYNGEAL SWAB [facility] Comment on above: Performed By: #### C OVID #### [facility] [address] [place] [id number] Cage Cashier: Damion Aparicio MD [facility] [address] [place], [place] [id number] Cage Cashier: Mario Alberto Minor MD [facility] [address] [place] [address] Cage Cashier: Nettie Benoit MD Vital Signs Date Time Vital Sign Value Performing Clinician Terence tamayo 04-22-2020 11:28-0400 BP Diastolic 76 mm[Hg] [facility] [place] 04-22-2020 11:28-0400 BP Systolic 128 mm[Hg] [facility] , [place] 04-22-2020 11:28-0400 Pulse (Heart Rate) 57 /min [facility] [place] 04-22-2020 11:28-0400 Pulse Oximetry 97 % [facility] [place] 04-22-2020 11:28-0400 Respiratory Rate 16 /min [facility] [place] 04-22-2020 10:58-0400 Body Temperature 98.49 [degF] [facility] [place] 04-22-2020 09:02-0400 BMI (Body Mass Index) 35.18 kg/m2 Lambert Pierce [facility], [place] 04-22-2020 09:02-0400 Body weight 103.42 kg [facility] [place] 04-22-2020 09:02-0400 Height 171.5 cm [place] Encounters Encounter Date Encounter Type Care Provider Facility Start: 06-19-2024 End: 06-22-2024 ambulatory AME DEWEY [facility] Start: 06-11-2024 End: 06-11-2024 ambulatory YARELIS MCALLISTER Not Available Start: 05-05-2024 End: 05-05-2024 ambulatory TIFFANIE JULIO Not Available Start: 11-15-2023 End: 11-15-2023 ambulatory YARELIS MCALLISTER Not Available Start: 11-14-2023 Chart abstracting Yarelis gale NP Work Phone: [facility] Start: 03-07-2021 End: 03-08-[address] DOCTOR GALLAGHER Facility: Start: 01-04-2021 End: 01-05-2021 ambulatory BROOKS GAUTAM Facility:[facility] Start: 09-23-2020 End: 09-24-[address] ELIZABETH CRAVEN Facility:[facility] Start: 09-19-2020 End: 09-20-[address] DOCTOR GALLAGHER Facility:[facility] Start: 09-07-2020 End: 09-08-[address] ELIZABETH CRAVEN Facility:[facility] Start: 08-10-2020 End: 08-11-[address] ELIZABETH CRAVEN Facility:[facility] Start: 04-22-2020 End: 04-22-2020 Patient encounter procedure LAMBERT COREY [facility] Start: 04-22-2020 End: 04-22-2020 Subsequent hospital visit by physician Lambert Corey Work Phone: [facility] Start: 04-19-2020 End: 04-24-2020 Patient encounter procedure JOSE FISH [facility] Start: 04-19-2020 End: 04-23-2020 Subsequent hospital visit by physician [facility] Alycia19 Pat Screening Schedule [facility] Start: 03-30-2020 End: 03-31-2020 ambulatory RENETTA BUNCH Facility:[facility] Procedures Date Procedure Procedure Detail Performing Clinician Start: 01-04-2021 ANESTH CARDIAC ELECTROPHYS BROOKS GAUTAM Start: 01-04-2021 CATH, EP, DIAG/ABL, 3D/VECT BROOKS GAUTAM Start: 01-04-2021 ELECTROPHYS MAP 3D ADD-ON BROOKS GAUTAM Start: 01-04-2021 TX ATRIAL FIB PULM V EIN ISOL BROOKS GAUTAM Start: 04-22-2020 DISCHARGE PATIENT JOSE FISH Start: 04-22-2020 Ecg routine ecg w/le ast 12 lds w/i&r JOSE FISH Start: 04-22-2020 INSERT PERIPHERAL IV RUSS IS ABE Start: 04-22-2020 COLONOSCOPY PROCEDURE L UIS ABE Start: 04-22-2020 End: 04-22-2020 Colonoscopy Lambert Corey Work Phone: Start: 04-19-2020 COVID-19 JOSE ALLEN Start: 04-19-2020 COV Rashadlinda varner Work Phone: Plan of Treatment Date Care Activity Detail Author Start: 04-22-2030 Screening for malignant neoplasm of colon [facility] Start: 05-15-2024 Medicare Annual Wellness (AWV) Medicare Annual Wellness (AWV) [facility] Start: 11-15-2023 End: 11-15-2023 Patient encounter procedure 11/15/2023 1:00 PM EST [facility] [address] [place] [address] Yarelis Mcallister, RETAIL SALESMAN [address] [place] [address] [facility] Start: 06-07-2023 Influenza vaccination Influenza Vaccine (#1) [facility] Start: 06-07-2020 Influenza vaccination Flu vaccine (#1) [place], [place] Start: 11-27-2019 Annual Wellness Visit (AWV) Annual Wellness Visit (AWV) [place] Start: 2017 Pneumococcal 65+ years Vaccine (1 of 1 - PPSV23) Pneumococcal 65+ years Vaccine (1 of 1 - PPSV23) [place], [place] Start: 2002 Shingles Vaccine (1 of 2) Shingles Vaccine (1 of 2) [place] Start: 1992 Diabetes screen Diabetes screen [place] Start: 1971 DTaP/Tdap/Td vaccine (1 - Tdap) DTaP/Tdap/Td vaccine (1 - Tdap) [place], [place] Start: 1962 Lipid panel Lipid screen [place], [place] Start: 1952 Abdominal aortic aneurysm screening AAA screen [place], [place] Start: 1952 Creatinine measurement Creatinine monitoring [place], [place] Start: 1952 Hepatitis C screening Hepatitis C screen [place], [place] Start: 1952 Potassium monitoring Potassium monitoring [place], [place] Start: 1952 Screening for malignant neoplasm of colon [facility] Start: 1950 TSH Qn TSH testing [place], [place] EKG 12 Lead EKG 12 Lead ECG STAT 04/22/2020 8:41 AM EDT [place], [place] Immunizations Immunization Date Immunization Notes Care Provider Fa cility 07-06-2023 influenza virus vacc ine, unspecified formulation Yarelis Mcallister RETAIL SALESMAN Work Phone: [facility] 06-21-2022 Influenza, High-dose Seasonal, Quadrivalent, Preservative Free Yarelis Mcallister RETAIL SALESMAN Work Phone: [facility] 07-14-2021 Influenza, High-dose Seasonal, Quadrivalent, Preservative Free Yarelis Mcallister RETAIL SALESMAN Work Phone: [facility] 12-05-2020 SARS-CoV-2, Unspecified Janet bubba Mcallister RETAIL SALESMAN Work Phone: [facility] 10-27-2020 pneumococcal conjuga te vaccine, 13 valent Yarelis Mcallister RETAIL SALESMAN Work Phone: [facility] 10-27-2020 pneumococcal polysaccharide vaccine, 23 valent Yarelis Mcallister RETAIL SALESMAN Work Phone: [facility] 08-03-2019 influenza, injectabl e, quadrivalent, preservative free Yarelis Mcallister RETAIL SALESMAN Work Phone: [facility] 10-03-2018 influenza, high dose seasonal, preservative-free Yarelis Mcallister RETAIL SALESMAN Work Phone: [facility] 09-25-2018 zoster vaccine recombinant Yarelis Mcallister RETAIL SALESMAN Work Phone: [facility] 03-26-2018 zoster vaccine recombinant Yarelis Mcallister RETAIL SALESMAN Work Phone: [facility] Payers Date Payer Category Payer Medicare MEDICARE MEDICAR E PART A AND B [id number] 2019-Present [phone] [place] [address] [id number] 2019 Unknown GENERIC MANAGED CARE GENERIC MANAGED CARE [id number] 2019-Present [id number] 2017 Medicare MEDICARE MEDICAR E PART B [id number] 2017-[place] [address] Medicare [id number] 2017 Medicare [id number] 1959 Medicare [id number] 1959 Unknown [id number] 1952 Unknown [id number] 1952 Unknown [id number] 1952 Unknown [id number] 1952 Unknown [id number] 1952 Unknown [id number] 1952 Unknown [id number] 1952 Unknown [id number] [id number] 1952 Unknown [id number] 1952 Unknown [id number] 1952 Unknown [id number] 1952 Unknown [id number] 9 1952 Unknown [id number] 9 1952 Unknown [id number] 9 Social History Date Type Detail Facility Start: 04-22-2020 End: 05-14-2023 Tobacco smoking status NHIS Former smoker [facility] End: 11-24-2005 History of tobacco use Current smoker [place], [place] Start: 04-22-2020 End: 05-14-2023 Tobacco use and exposure [facility] Start: 11-27-2019 History SDOH Social Connections Living 3 [place], [place] Start: 04-22-2020 Alcohol Comment glass of wine 1-2x/week [place], [place] Start: 1950 Sex Assigned At Not on file [place] Exposure to SARS-CoV -2 (event) Not sure [place] End: 10-07-2005 History of tobacco use Cigarette Smoker [facility] Start: 05-15-2023 Alcohol intake Current drinke r of alcohol (finding) [facility] Start: 05-14-2023 End: 05-15-2023 History of Social function [facility] Start: 05-14-2023 End: 05-15-2023 Alcohol Use Disorder Identification Test - Consumption [AUDIT-C] [facility] How often to you hav e a drink containing alcohol? Monthly or less [facility] How many standard dr inks containing alcohol do you have on a typical day? 1 or 2 [facility] How often do you hav e 6 or more drinks on 1 occasion? Never [facility] Progress note 06-19-2024 Note Date & Type Note Facility 06-19-2024 Note Lipid abnormalities are well-controlled with atorvastatin 20 mg daily states she wants him to start taking an omega supplement for his joint discomfort, therefore I told her to take [id number] as directed and have a discussion with her PCP-monitor for any bleeding tendencies Liver function normal and LDL less than 70 [facility] note 06-19-2024 Note Date & Type Note Facility 06-19-2024 Note Currently recovered ejection fraction-was 20 to 25% in 2018 [facility] II currently euvolemic without exacerbation, denies any activity limiting symptoms Weight has decreased since last visit Continue GDMT-continue Lipitor, Coreg, Entresto and Lasix for Diuretic therapy Monitor daily weights, I&O, fluid restriction 1.5-2L/day Extended discussion about reasons he is on the medicines he is on and that we cannot stop any of the medicines and actually would like to start Aldactone or Farxiga but with his hypotension and he is adamant he does not want any more medicines at this time [facility] note 06-19-2024 Note Date & Type Note Facility 06-19-2024 Note [id number] 4 age, heart failure, hypertension and CAD/vascular disease Continue Eliquis anticoagulation patient denies any bleeding tendencies and carvedilol for rate control Per assessment patient is in rhythm and rate is well-controlled [facility] note 06-19-2024 Note Date & Type Note Facility 06-19-2024 Note Coronary artery dise ase is Stable Continue GDMT- lipitor, coreg no ASA with eliquis anticoagulation. Patient would like to stop some of the medications that he is on we had an extended discussion with him and his reported that with CAD and heart failure there are no meds that he is on right now that we can stop at this time and actually I would probably like to add 1 or 2 but he refuses continue risk factor modifications- heart healthy diet, regular exercise as tolerated and continue all medications. [facility] note 06-19-2024 Note Date & Type Note Facility 06-19-2024 Note Pt is here for a one year follow up. Pt denies chest pain, sob, palpatations. Review of Systems Cardiovascular: Positive for leg swelling. Respiratory: Positive for cough. Musculoskeletal: Positive for joint pain and joint swelling. All other systems reviewed and are negative. [facility] note 06-19-2024 Note Date & Type Note Facility 06-19-2024 Note [facility] C[facility] PROGR ESS NOTE HPI: Nettie Ramirez is a 74 y.o. male here for routine F/U HPI 74 yo male presents today for routine annual follow-up for known coronary artery disease, systolic heart failure, hypertension, hyperlipidemia. Pt denies chest pain, sob, palpitations or bleeding tendencies. Overall patient states he is doing well other than joint and bone discomfort-had foot surgeries and multiple orthopedic issues over the years. From a heart standpoint he denies chest pain or shortness of breath that limited his activity. Denies lightheadedness, dizziness, syncope. Review of Systems Cardiovascular: Positive for leg swelling. Respiratory: Positive for cough. Musculoskeletal: Positive for joint pain and joint swelling. All other systems reviewed and are negativ Visit Vitals BP 95/60 (BP Location: Right arm, Patient Position: Sitting) Pulse 57 Ht 1.651 m (5' 5 ) Wt 103 kg (228 lb) SpO2 95% BMI 37.94 kg/m??? Smoking Status Former BSA 2.17 m??? Allergies Allergen Reactions Lisinopril Other cough Medications: Current Outpatient Medications on File Prior to Visit Medication Sig Dispense Refill apixaban (Eliquis) 5 mg tablet every 12 (twelve) hours. atorvastatin (Lipitor) 20 mg tablet Take 1 tablet (20 mg) by mouth in the morning. 90 tablet 3 carvedilol (Coreg) 3.125 mg tablet TAKE ONE TABLET BY MOUTH EVERY MORNING AND TAKE ONE TABLET BY MOUTH EVERY NIGHT AT BEDTIME 180 tablet 3 furosemide (Lasix) 40 mg tablet TAKE ONE TABLET BY MOUTH EVERY MORNING 90 tablet 3 sacubitril-valsartan (Entresto) 97-103 mg tablet Take 1 tablet by mouth in the morning and at bedtime. 180 tablet 3 No current facility-administered medications on file prior to visit. Physical Exam: Constitutional: Appearance: Normal appearance. Without apparent distress obese, chronically ill, 25 HENT: Head: Normocephalic and atraumatic. Nose: Nose normal. Mouth/Throat: Mouth: Mucous membranes are moist. Eyes: Extraocular Movements: Extraocular movements intact. Conjunctiva/sclera: Conjunctivae normal. Neck: Vascular: No JVD. Cardiovascular: Rate and Rhythm: Normal rate and regular rhythm. Pulses: Posterior tibial pulses are 3 on the right side and 3 on the left side. Heart sounds: Normal heart sounds, S1 normal and S2 normal. Pulmonary: Effort: Pulmonary effort is normal. Breath sounds: Normal breath sounds. Abdominal: General: Bowel sounds are normal. Palpations: Abdomen is soft. Musculoskeletal: General: Normal range of motion. Cervical back: Normal range of motion. Right lower leg: Trace edema. Left lower leg: Trace edema. Skin: General: Skin is warm and dry. Capillary Refill: Capillary refill takes less than 2 seconds. Neurological: General: No focal deficit present. Mental Status: he is alert and oriented to person, place, and time. Psychiatric: Mood and Affect: Mood normal. Behavior: Behavior normal. Thought Content: Thought content normal. Judgment: Judgment normal. Labs:-Reviewed with patient 06/16/24 CBC normal BUN 18 creatinine 0.70-normal renal function Normal liver function Lipids well-controlled with cholesterol 125, triglycerides 66, HDL 48, LDL 64 Hemoglobin A1c 6.3 prediabetes borderline Last lab values have been reviewed CV Testin05/20/23 TTE-reviewed with patient Mild LVH with normal LV systolic function and ejection fraction 65% RV normal size and systolic function Mild biatrial dilatation No significant valvular abnormalities reviewed with patient Echocardiogram 10/09/2017: Global left ventricular systolic function is severely reduced (Visually estimated EF 20-25%). Diffuse global hypokinesis. Right ventricular systolic function appears reduced. The right atrium is mildly enlarged. Doppler studies suggest normal right sided pressures. There is a minimal pericardial effusion. Cardiac cath 10/14/2017: 1. Severe disease of small, short, second obtuse marginal branch of the left circumflex coronary artery. 2. Moderate disease of the left circumflex coronary artery. 3. Mild disease of the left anterior descending and right coronary artery. 4. Severely reduced global left ventricular systolic function by noninvasive imaging. 5. Mildly elevated right-sided heart pressure and wedge pressure. 6. Mildly reduced cardiac output/cardiac index. Assessment/Plan: Atherosclerotic heart disease of igiugig coronary artery without angina pectoris Coronary artery disease is Stable Continue GDMT- lipitor, coreg no ASA with eliquis anticoagulation. Patient would like to stop some of the medications that he is on we had an extended discussion with him and his reported that with CAD and heart failure there are no meds that he is on right now that we can stop at this time and actually I would probably like to add 1 or 2 but he refuses continue risk factor modifications- heart healthy diet, regular exercise as (more content not included)... [facility] 03-30-2020 Note Date & Type Note Facility 03-30-2020 Note PROCEDURE: XR FOOT R T MIN 3 VIEWS COMPARISON: 12/16/2019 HISTORY: Pain in right foot FINDINGS: BONES:Stable talocalcaneal fusion with 3 cannulated lag screws. No mechanical failure. Posterior calcaneal osteotomy, unchanged. Moderate enthesopathic spurring of the calcaneus. Lytic change of the distal tibia consistent with bone graft harvesting. No acute fracture or dislocation SOFT TISSUES:Negative. No visible soft tissue swelling. EFFUSION:None visible. OTHER: Negative. IMPRESSION: Stable talocalcaneal fusion Electronically authenticated by: DARRYL GRIDER Date: 2020-03-30 11:04 [facility] Summary Purpose Family History No Family History Records FoundNo Family History Records FoundNo Family History Records FoundNo Family History Records FoundNo Family History Records Found Advance Directives No Advanced Directives Records FoundDocuments on File Type Date Recorded Patient Wood Room Hand Expl anation Advance Directives and Living Will Power of Clinical Data Specialist Documents on File Type Date Recorded Patient Wood Room Hand Expl anation Advance Directives and Living Will 10/02/2018 2018-10-02 Power of erisa attorney Discharge Instructions * Instructions* Tigist Ramírez RN - 04/22/2020 Normal colon. No further colonoscopy indicated based on today findings. Okay to restart Aspirin andEliquis in the morning. COLONOSCOPY DISCHARGE INSTRUCTIONS: It's normal to have a feeling of fullness or mild cramping in your abdomen afterwards due to air that is put into your bowel during the procedure. Mild activities such as walking will help you pass the air. You may resume your regular diet. You will receive a letter or phone call with your test results in 2 weeks. If you have not receiveda letter or a phone call in 2 weeks please call the office for your results. CALL THE DOCTOR IF YOU HAVE: Chest pain or trouble breathing. Bleeding from your rectum, vomiting or spitting up of blood that is more than a few streaks or red or black stools A fever above 101F or if you have chills Pain that is worse or different than any pain you had before the procedure Nausea or vomiting that lasts for more than 2 hours. If symptoms are to severe call 911 or go to the nearest Emergency Room. documented in this encounter History of Present Illness * Tigist Ramírez RN - 04/22/2020 11:34 AM EDT Pt verbalized readiness to go home. Discharge instructions given to pt and . Verbalized understanding and all questions answered at this time. Pt and instructed to stop in main lobby to pickup packet of Medical Records forms to have [facility] sent to the [facility], [facility], and themselves. Discharge Criteria Inpatients must meet Criteria 1 through 7. All other patients are either YES or N/A. If a NO is chosen then Anesthesia or Surgeon must be notified. 1. Minimum 30 minutes after last dose of sedative medication, minimum 120 minutes after last dose of reversal agent. Yes 2. Systolic BP stable within 20 mmHg for 30 minutes & systolic BP between 90 & 180 or within 10 mmHg of baseline. Yes 3. Pulse between 60 and 100 or within 10 bpm of baseline. Yes 4. Spontaneous respiratory rate >/= 10 per minute. Yes 5. SaO2 >/= 95 or >/= baseline. Yes 6. Able to cough and swallow or return to baseline function. Yes 7. Alert and oriented or return to baseline mental status. Yes 8. Demonstrates controlled, coordinated movements, ambulates with steady gait, or return to baseline activity function. Yes 9. Minimal or no pain or nausea, or at a level tolerable and acceptable to patient. Yes 10. Takes and retains oral fluids as allowed. Yes 11. Procedural / perioperative site stable. Minimal or no bleeding. Yes 12. If GI endoscopy procedure, minimal or no abdominal distention or passing flatus. N/A 13. Written discharge instructions and emergency telephone number provided. Yes 14. Accompanied by a responsible adult. Yes * Vicky Díaz RN - 04/22/2020 10:55 AM EDT Handoff to Tigist and Fiorella Norman RN documented in this encounter Additional Source Comments (unrecognized sect ion and content) No Status Records FoundNo Status Records FoundNo Status Records FoundNo Status Records FoundNo Status Records Found INFORMATION SOURCE (unrecogn ized section and content) DATE CREATED AUTHOR 04/29/2020 [facility] DATE CREATED AUTHOR AUTHOR'S ORGANIZ ATION 03/16/2021 [facility] DATE CREATED AUTHOR AUTHOR'S ORGANIZ ATION 03/17/2021 [facility] DATE CREATED AUTHOR AUTHOR'S ORGANIZ ATION 06/13/2024 [facility] DATE CREATED AUTHOR AUTHOR'S ORGANIZ ATION 06/23/2024 [facility] Reason for Visit (unrecogniz ed section and content) Status Reason Specialty Diagnoses / Procedures Referre d By Contact Referred To Contact Diagnoses Encounter for screening for malignant neoplasm of colon SCREENING, HX POLYPS Procedures [place] COLON CA SCRN NOT HI RSK IND [place] COLONOSCOPY FLX DX W/COLLJ SPEC WHEN PFRMD COLORECTAL CANCER SCREENING, NOT HIGH RISK Lambert Corey DO [address] [place] [address] [facility] Care Teams (unrecognized sec tion and content) Counter Intelligence Technician Relationship Specialty Start Date End Date Nkechi Ghosh DO [address] [place] [address] PCP - General Family Medicine 02/12/23 FOR RECORDS PERTAINING TO PATIENTS WHO ARE OR HAVE BEEN ENROLLED IN A CHEMICAL DEPENDENCY/SUBSTANCEABUSE PROGRAM, SOME INFORMATION MAY BE OMITTED. This clinical summary was aggregated from multiple sources. Caution should be exercised in using it in the provision of clinical care. This summary normalizes information from multiple sources, and as a consequence, information in this document may materially change the coding, format and clinical context of patient data. In addition, data may be omitted in some cases. CLINICAL DECISIONS SHOULD BE BASED ON THE PRIMARY CLINICAL RECORDS. [facility] provides no warranty or guarantee of the accuracy or completeness of information in this document.
== END 2024-06-23 11:49 | disposition home or self-care (01) ==
LOC: EC 11:48
PROVIDERS: Visit Provider Podiatrist Foot & Ankle Surgery
DX: M25.571 Pain in right ankle and joints of right foot (principal); M25.572 Pain in left ankle and joints of left foot; M79.671 Pain in right foot
CPT/HCPCS: 73610; 73630

== ENCOUNTER 2024-12-01 10:57 | Outpatient (OUT) | payer MEDICARE, OTHER, SELFPAY ==
--- NOTE | 2024-12-01 | XR_ITS ---
The [address] [address] Patient Name: NETTIE HERNANDEZ MRN: [id number] date: 1950 Sex: M Assigned Patient Location: Current Patient Location: Accession/Order Number: [id number] Exam Date: 12/01/2024 13:35 Report Date: 12/01/2024 13:40 At the request of: RENETTA BUNCH Procedure: XR foot RT min 3V WEIGHTBEARING RIGHT FOOT - 4 views COMPARISON: 06/23/2024 Clinical data: Right foot pain with plantar wound at the level the distal fourth and fifth metatarsals AP, lateral, oblique and tangential calcaneal views were obtained. There is talocalcaneal fusion with 3 cannulated screws which are unchanged from the prior. Defect at the distal tibia may be a bone grafting donor site. There is no acute fracture or dislocation. No bony destruction is noted. A similar sclerotic focus is seen at the distal phalanx of the first toe. Calcaneal spurs are present. No focal soft tissue swelling or radiopaque foreign bodies are noted. XR/XR foot RT min 3V IMPRESSION: SIMILAR POSTOPERATIVE CHANGES. NO ACUTE BONY FINDINGS. Impression dictated by: Kathe Rubi M.D.12/01/2024 1:40 PM Dictation Location: [place] [address] Electronically authenticated by: [id number] Y Date: 12/01/2024 13:40
--- OUTSIDE RECORDS SUMMARY | 2024-12-01 11:12 | XMS_ITS | CCD ---
Author Organization [facility] ion [facility] Care Team Providers Care Para Educator Name Role Phone JOSE FISH Referring Unavailable NKECHI GHOSH Primary Care Unavailable KENA COREY I Admitting Unavailable KENA COREY I Attending Unavailable JOSE FISH Referring Unavailable NKECHI GHOSH Primary Care Unavailable Nkechi Ghosh Primary Care Provider BROOKS GAUTAM Admitting Unavailable BROOKS GAUTAM Attending Unavailable UNKNOWN, PROVIDER Primary Care Unavailable UNKNOWN, PROVIDER Referring Unavailable BROOKS GAUTAM Surgeon Unavailable [place] Procedure Practitioner Unavailab le MISC, DR SHEPHERD [...] Attending Unavailable MOUKARBEL, DR JOHNSON Consulting Unavailable Augie Nkechi RIDER Primary Care Provider AME DEWEY Attending Unavailable Esvin MARTINEZYarelis Unavailable YARELIS MCALLISTER Attending Unavailable TIFFANIE JULIO Attending Unavailable YARELIS MCALLISTER Attending Unavailable AMILCAR LINDSAY Attending Unavailable SHON MILLIGAN Referring Unavailable AMILCAR LINDSAY Attending Unavailable NKECHI GHOSH Referring Unavailable AMILCAR LINDSAY Attending Unavailable AMILCAR LINDSAY Attending Unavailable Nkechi Ghosh DO Unavailable [phone] Allergies Allergy Classification Reported Allergen(s) Allergy Type Date of Onset Reaction(s) Facility Amino Acids (2 sources) Amino Acids Drug Allergy 8 [facility] Repository (3 sources) Lisinopril; Translations: [LISINOPRIL] Drug Allergy 0 Other (See Comments) [place], [place] (17 sources) Lisinopril Allergy to substance 0 [facility] Work Phone: Medications Current Medications Medication Drug Class(es) Dates Sig (Normalized) Sig (Original) amiodarone hydrochloride 100 mg oral tablet (2 sources) Antiarrhythmic take 1 tablet by mouth once daily amiodarone (PACERONE) 100 MG tablet Take 100 mg by mouth daily 0 Active apixaban 5 mg oral tablet (19 sources) Factor Xa Inhibitor apixaban (El iquis) 5 MG tablet every 12 (twelve) hours. Active apixaban (ELIQUI S) 5 MG TABS [...] daily Take 1/2 tablet 0 Active atorvastatin 20 mg oral tablet (19 sources) HMG-CoA Reductase Inhibitor take 1 tablet by mouth once daily atorvastatin (Lipitor) 20 MG tablet Take 20 mg by mouth Daily Active atorvastatin (Li pitor) 40 MG tablet 1 (one) time each day at the same time. 0 Active atorvastatin (LI PITOR) 40 MG tablet Take 20 mg by mouth daily 0 Active calcium chloride 0.0014 meq/ml / potassium chloride 0.004 meq/ml / sodium chloride 0.103 meq/ml / sodium lactate 0.028 meq/ml injectable solution (1 source) Start: 04-22-2020 lactated ringe rs infusion carvedilol 3.125 mg oral tablet (19 sources) alpha-Adrenergic Melissa, beta-Adrenergic Melissa carvedilol (Coreg) 3.125 MG tablet every 12 (twelve) hours. Active take 1 tablet by tyrel th twice daily at mealtime carvedilol (COREG) 3.125 MG tablet Take 3.125 mg by mouth 2 times daily (with meals) 0 Active cholecalciferol 0.025 mg ora l capsule (19 sources) Vitamin D cholecalciferol (Vitamin D-3) 25 MCG (1000 UT) capsule 1 capsule 1 (one) time each day at the same time. Active Cholecalciferol (VITAMIN D3 PO) Take by mouth 0 Active Coenzyme Q10 (CO Q10 PO) (2 sources) Coenzyme Q10 (CO Q10 PO) Take by mouth daily 0 Active furosemide 40 mg oral tablet (19 sources) Loop Diuretic furosemide (Lasi x) 40 MG tablet 1 (one) time each day at the same time. Active take 1 tablet by mouth twice aldo ly furosemide (LASIX) 40 MG tablet Take 40 mg by mouth 2 times daily 0 Active Lavender Oil oil (17 sources) Lavender Oil oil as directed Active Lavender Oil oil as directed 0 Active LAVENDER OIL PO (2 sources) LAVENDER OIL PO Take by mouth 0 Active melatonin 5 mg oral tablet (19 sources) take 1 tablet by mouth in the morning melatonin 5 MG tablet Take 5 mg by mouth in the morning. Active pantoprazole 20 mg delayed release oral tablet (2 sources) Proton Pump Inhibitor take 1 tablet by mouth once daily pantoprazole (PROTONIX) 20 MG tablet Take 20 mg by mouth daily 0 Active sacubitril 97 mg / valsartan 103 mg oral tablet (19 sources) Angiotensin 2 Receptor Melissa sacubitril-valsartan (Entresto) 97-103 MG tablet every 12 (twelve) hours. Active tadalafil 20 mg oral tablet (19 sources) Phosphodiesterase 5 Inhibitor tadalafil (Cialis) 20 MG tablet 1 tablet Orally for 30 day(s) Active ubidecarenone 50 mg oral capsule (17 sources) coenzyme Q-10 50 MG capsule Take by mouth. Active zinc gluconate 50 mg oral tablet (19 sources) take 1 tablet by mouth in the morning zinc gluconate 50 MG tablet Take 50 mg by mouth in the morning. Active Problems Active Problems Problem Classification Problem Date Documented Date Episodic/Chronic Acquired foot deformities (20 sources) Acquired cavus deformity of foot; Translations: [Other acquired deformities of unspecified foot] Onset: 05-15-2023 Resolved: 05-15-2023 05-15-2023 Episodic Cardiac dysrhythmias (20 sources) Unspecified atrial fibrillation; Translations: [Paroxysmal atrial fibrillation] Onset: 10-23-2017 Resolved: 11-15-2023 Chronic Congestive heart failure; nonhypertensive (20 sources) Chronic systolic (congestive) heart failure; Translations: [Chronic systolic heart failure] Onset: 10-23-2017 Resolved: 11-15-2023 Chronic Coronary atherosclerosis and other heart disease (20 sources) Atherosclerotic heart disease of [place] coronary artery without angina pectoris; Translations: [Coronary atherosclerosis] Onset: 11-15-2023 Resolved: 11-15-2023 Chronic Disorders of lipid metabolism (20 sources) Hyperlipidemia; Translations: [Hyperlipidemia, unspecified] Onset: 05-15-2023 05-15-2023 Chronic Esophageal disorders (19 sources) Gastroesophageal reflux disease; Translations: [Gastro-esophageal reflux disease without esophagitis] Onset: 05-15-2023 05-15-2023 Chronic Essential hypertension (19 sources) Essential hypertension; Translations: [Essential (primary) hypertension] Onset: 05-15-2023 05-15-2023 Chronic Other ear and sense organ disorders (18 sources) Sensorineural hearing loss, bilateral; Translations: [Sensorineural hearing loss, bilateral] Onset: 11-15-2023 11-15-2023 Chronic Other male genital disorders (18 sources) Male erectile dysfunction, unspecified; Translations: [Impotence of organic origin] Onset: 11-15-2023 11-15-2023 Chronic Other nervous system disorders (8 sources) Hereditary motor and sensory neuropathy; Translations: [Hereditary motor and sensory neuropathy] 07-15-2024 Chronic Other nervous system disorders (4 sources) Difficulty walking; Translations: [Difficulty in walking, not elsewhere classified] 07-15-2024 Chronic Other non-traumatic joint disorders (6 sources) Instability of joint of left ankle; Translations: [Other instability, left ankle] 07-15-2024 Episodic Other non-traumatic joint disorders (6 sources) Instability of joint of right ankle; Translations: [Other instability, right ankle] 07-15-2024 Episodic Residual codes; unclassified (19 sources) Dependence on continuous positive airway pressure ventilation; Translations: [Dependence on other enabling machines and devices] Onset: 05-15-2023 05-15-2023 Chronic Residual codes; unclassified (19 sources) Obstructive sleep apnea syndrome; Translations: [Obstructive sleep apnea (adult) (pediatric)] Onset: 05-15-2023 05-15-2023 Chronic Residual codes; unclassified (2 sources) Localized edema; Translations: [Localized edema] 09-15-2024 Episodic Past or Other Problems Problem Classification Problem Date Documented Date Episodic/Chronic Blindness and vision defects (20 sources) Regular astigmatism; Translations: [Regular astigmatism, unspecified eye] Onset: 11-15-2023 Resolved: 06-15-2024 06-15-2024 Episodic Cataract (20 sources) Cataract of right eye; Translations: [Unspecified cataract] Onset: 05-15-2023 Resolved: 06-15-2024 05-15-2023 Chronic Diabetes mellitus without complication (2 sources) Hyperglycemia; Translations: [Hyperglycemia, unspecified] 06-11-2024 Episodic Immunizations and screening for infectious disease (4 sources) Contact with and (suspected) exposure to other viral communicable diseases; Translations: [CONTCT EXPS OTH VIRL COMMUNICABL DZ] Onset: 09-23-2020 Episodic Mood disorders (17 sources) Mood disorders Onset: 05-15-2023 05-15-2023 Osteoarthritis (20 sources) Osteoarthritis; Translations: [Unspecified osteoarthritis, unspecified site] Onset: 05-15-2023 Resolved: 06-15-2024 05-15-2023 Chronic Other acquired deformities (17 sources) Deformity of foot; Translations: [Unspecified acquired deformity of unspecified lower leg] Onset: 05-15-2023 Resolved: 05-15-2023 05-15-2023 Episodic Other acquired deformities (17 sources) Acquired deformity of left lower leg; Translations: [Unspecified acquired deformity of left lower leg] Onset: 05-15-2023 Resolved: 05-15-2023 05-15-2023 Episodic Other aftercare (5 sources) Other mcc (current) drug therapy; 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] Onset: 09-07-2020 Episodic Other aftercare (18 sources) Long-term current use of anticoagulant; 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] Onset: 11-15-2023 11-15-2023 Episodic Other connective tissue disease (4 sources) Pain in right foot; Translations: [PAIN IN RIGHT FOOT] Onset: 03-30-2020 Episodic Other connective tissue disease (1 source) Arthrodesis status; Translations: [ARTHRODESIS STATUS] Onset: 04-03-2020 Episodic Other ear and sense organ disorders (16 sources) Device status; Translations: [Encounter for fitting and adjustment of hearing aid] Onset: 11-15-2023 Resolved: 06-15-2024 06-15-2024 Episodic Other eye disorders (16 sources) Anterior corneal pigmentation; Translations: [Anterior corneal pigmentations, unspecified eye] Onset: 11-15-2023 Resolved: 06-15-2024 06-15-2024 Episodic Other nervous system disorders (2 sources) Poor balance; Translations: [Other abnormalities of gait and mobility] 06-15-2024 Episodic Other non-traumatic joint disorders (16 sources) Pain in left knee; Translations: [Pain in joint, lower leg] Onset: 11-15-2023 Resolved: 06-15-2024 06-15-2024 Episodic Other non-traumatic joint disorders (2 sources) Arthralgia of the ankle and/or foot; Translations: [Pain in left ankle and joints of left foot] 06-15-2024 Episodic Other nutritional; endocrine; and metabolic disorders (17 sources) Body mass index 30+ - obesity; Translations: [Body mass index (BMI) 36.0-36.9, adult] Onset: 12-14-2022 Resolved: 05-15-2023 05-15-2023 Chronic Other nutritional; endocrine; and metabolic disorders (16 sources) Obesity; Translations: [Obesity, unspecified] Onset: 11-15-2023 Resolved: 06-15-2024 06-15-2024 Chronic Other screening for suspected conditions (not mental disorders or infectious disease) (4 sources) Patient encounter status; Translations: [Encounter for screening for cardiovascular disorders] 06-15-2024 Episodic Residual codes; unclassified (17 sources) Dependence on enabling machine or device; Translations: [Dependence on other enabling machines and devices] Onset: 05-15-2023 Resolved: 05-15-2023 05-15-2023 Chronic Residual codes; unclassified (17 sources) Sleep apnea; Translations: [Sleep apnea, unspecified] Onset: 05-15-2023 Resolved: 05-15-2023 05-15-2023 Chronic Residual codes; unclassified (17 sources) Sleep disorder; Translations: [Sleep disorder, unspecified] Onset: 05-15-2023 Resolved: 05-15-2023 05-15-2023 Episodic Spondylosis; intervertebral disc disorders; other back problems (16 sources) Low back pain; Translations: [Low back pain] Onset: 11-15-2023 Resolved: 06-15-2024 06-15-2024 Episodic Results Test Name Value Interpretation Reference Range Facility Office Visiton 06-19-2024 Follow-up visit [id number] Nettie Ramirez 1950 M Date Provider Department Center 06/19/2024 [facility]E WARD [facility] Family History Problem Relation Age of Onset Coronary artery disease Mother Heart attack Mother Stroke Mother Family Status - Relation Status Age at Mother Level of Service:68590 [place] OFFICE/OUTPATIENT ESTABLISHED LOW MDM 20 MIN Normal [facility] ECHOCARDIO M/2D COMPLETEon 0 03-07-2021 ECHOCARDIO M/2D COMPLETE Patient: NETTIE RAMIREZ. Exam Date: 03/07/2021 : 1950 Gender:M Ordering : BROOKS GAUTAM MD Admission #: [id number] Family : Order #: [id number] CLICK HERE TO VIEW EXAM ECHOCARDIOGRAM REPORT [...] Area(A4C): 23.70 cm2 Left Atrium Systolic Volume(A2C): 27674 mm3 Left Atrium Systolic Volume(A4C): 37775 mm3 Mitral Valve MV E to A Ratio: 1.10 Mitral Valve A-Wave Peak Velocity: 63.20 cm/s Mitral Valve E-Wave Peak Velocity: 76.00 cm/s Deceleration [place]: 4120 mm/s2 Mitral Valve A-Wave Peak Velocity: [...] Geller M.D. on 03/07/2021 at 15:01 Normal [facility] BASIC METABOLIC PANELon 03-3 Calcium [Mass/Vol] 9.2 mg/dL Normal 8.6-10.3 [facility] Comment on above: Performed By: #### 0 0071 #### [facility] [address] [place] [address], [facility] [place] Chloride [Moles/Vol] 99 mmol/L Normal 98-107 [facility] Comment on above: Performed By: #### 0 0071 #### [facility] [address] [place] [address], [place] CO2 [Moles/Vol] 27 mmol/L Normal 21-31 [facility] Comment on above: Performed By: #### 0 0071 #### [facility] [address] [place] [address], [place] Creatinine [Mass/Vol] 0.82 mg/dL Normal 0.70-1.30 [facility] Comment on above: Performed By: #### 0 0071 #### [facility] [address] [place] [address], [place] GFR/1.73 sq M.predicted among blacks MDRD (S/P/Bld) [Vol rate/Area] mL/min/{1.73_m2} Normal >60 [facility] Comment on above: Performed By: #### 0 0071 #### [facility] [address] [place] [address], [place] GFR/1.73 sq M.predicted among non-blacks MDRD (S/P/Bld) [Vol rate/Area] mL/min/{1.73_m2} Normal >60 [facility] Comment on above: Performed By: #### 0 0071 #### [facility] [address] [facility] [place] [address], [facility] [place] Glucose [Mass/Vol] 117 mg/dL High 70-100 [facility] Comment on above: Performed By: #### 0 0071 #### [facility] [address] [place] [address], [facility] [place] Potassium [Moles/Vol] 4.2 mmol/L Normal 3.5-5.1 [facility] Comment on above: Performed By: #### 0 0071 #### [facility] [address] [facility] [place] [address], [facility] [place] Sodium [Moles/Vol] 134 mmol/L Low 136-145 [facility] Comment on above: Performed By: #### 0 0071 #### [facility] [address] [place] [address], [facility] [place] Urea nitrogen [Mass/Vol] 15 mg/dL Normal 7-25 [facility] Comment on above: Performed By: #### 0 0071 #### [facility] [address] Cardiovascular Lab Reporton 01-04-2021 Cardiovascular Lab Report [facility] Patient Name: Nettie Ramirez [facility] MR #: [id number] Physician: Brooks Gautam MD Department of Service Date: 01/04/2021 Medicine Birthdate: 1950 Division of Room #: 3AB [id number] Cardiology Adult Cardiovascular Services [place] [address] Cardiovascular Laboratory Report ATRIAL FIBRILLATION ABLATION PROCEDURE [...] lipomatous hypertrophy. Esophagus was mapped using the Es500Shopstar and CHORDSOUND 3D mapping software and noted to be [...] perivenous (more content not included)... Normal [facility] POC GLUCOSE LABon 01-04-2021 Glucose [Mass/Vol] 121 mg/dL High 70-100 [facility] Comment on above: Performed By: #### 8 [id number] #### [facility] [address] [place] [address], [facility] [place] CREATININE BLOODon Creatinine [Mass/Vol] 0.77 mg/dL Normal 0.70-1.30 [facility] Comment on above: Performed By: #### 2 5656 #### [facility] [address] [place] [address], [facility] [place] GFR/1.73 sq M.predicted among blacks MDRD (S/P/Bld) [Vol rate/Area] mL/min/{1.73_m2} Normal >60 [facility] Comment on above: Performed By: #### 2 5656 #### [facility] [address] [place] [address], [facility] [place] GFR/1.73 sq M.predicted among non-blacks MDRD (S/P/Bld) [Vol rate/Area] mL/min/{1.73_m2} Normal >60 [facility] Comment on above: Performed By: #### 2 5656 #### [address] [address], [facility] [place] CTA CHESTon 12-26-2020 CTA CHEST [facility] Department of Radiology [address] [place] [id number] ======== Patient Name: NETTIE RAMIREZ : 1950 Sex: M Age: Race: White Pt. Location: [facility] Patient Status: O Ordered Date: 11/04/2020 2:40:00 PM Completed Date: 12/26/2020 12:12 PM Requesting Provider: BROOKS GAUTAM Attending Provider: BROOKS GAUTAM Report Copy To: ELIZABETH CRAVEN V Signs & Symptoms: I48.0 Paroxysmal atrial fibrillation I10 History: Claudette patient will need labs Schedule week of December 26. MEDICARE no pc required [id number] 11/09/20 *kw Comments: Pre-Ablation on 01/04/21 , [...] The Electronically signed: Darryl Posey. Transcribed by: [id number], User Resident: Electronically Signed by: DARRYL POSEY @ 12/26/2020 12:41 PM Normal [facility] Comment on above: Order Comment: Pre-A blation on 01/04/21 , gaited Covid-19 PCR (CVDTBH)on 09-06 EUA Statement SEE BELOW Normal [facility] Comment on above: Result Comment: This test is not yet approved or cleared by the [place] FDA. When there are no FDA-approved or cleared tests available, and other criteria are met, FDA can make tests available under an emergency access mechanism called an Emergency Use Authorization (EUA). The EUA for this test is supported by the [place] of Health and Human Service?s (HHS?s) declaration [...] with SARS-CoV-2. Performed By: #### C VDTB ####[facility] [address] [place] [address] SARS-CoV-2 (COVID-19) RNA EMMANUEL+probe Ql (Unsp spec) Not detected Normal NOT DETECTED [facility] Comment on above: Result Comment: This test is not yet approved or cleared by the [place] FDA. When there are no FDA-approved or cleared tests available, and other criteria are met, FDA can make tests available under an emergency access mechanism called an Emergency Use Authorization (EUA). The EUA for this test is supported by the [place] of Health and Human Service's (HHS's) declaration [...] be used). Performed By: #### C VDTB ####[facility] [address] [place] [address] [place] CBC AUTO DIFFon 09-19-2020 BASO # 0.0 103/ul Normal 0.0-0.1 [facility] Comment on above: Performed By: #### C BC ####[facility] [address] [place] [address] [place] Basophils/100 WBC (Bld) 0.3 % Normal 0.2-2.0 [facility] Comment on above: Performed By: #### C BC ####[facility] [address] [place] [address] [place] EO # 0.1 103/ul Normal 0.0-0.7 [facility] Comment on above: Performed By: #### C BC ####[facility] [address] [place] [address] [place] Eosinophils/100 WBC (Bld) 1.5 % Normal 0.9-7.0 [facility] Comment on above: Performed By: #### C BC ####[facility] [address] [place] [address] [place] Erythrocyte distribution width (RBC) [Ratio] 13.0 % Normal 11.0-15.0 [facility] Comment on above: Performed By: #### C BC ####[facility] [address] [place] [address] [place] Hematocrit (Bld) [Volume fraction] 45.1 % Normal 42.0-54.0 [facility] Comment on above: Performed By: #### C BC ####[facility] [address] [place] [address] [place] Hemoglobin (Bld) [Mass/Vol] 14.3 g/dL Normal 14.0-18.0 [facility] Comment on above: Performed By: #### C BC ####[facility] [address] [place] [address] [place] IG # 0.01 10e3/ul Normal 0.00-0.03 [facility] Comment on above: Performed By: #### C BC ####[facility] [address] [place] [address] [place] IG % 0.1 % Normal 0.0-0.5 [facility] Comment on above: Performed By: #### C BC ####[facility] [address] [place] [address] [place] LYMPH # 1.5 103/ul Normal 1.2-3.8 [facility] Comment on above: Performed By: #### C BC ####[facility] [address] [place] Lymphocytes/100 WBC (Bld) 22.8 % Normal 20.5-60.0 [facility] Comment on above: Performed By: #### C BC ####[facility] [address] [place] MANUAL DIFF REQ NO Normal [facility] Comment on above: Performed By: #### C BC ####[facility] [address] [place] MCH (RBC) [Entitic mass] 31.3 pg Normal 25.9-34.0 [facility] Comment on above: Performed By: #### C BC ####[facility] [address] [place] [address] [place] MCHC (RBC) [Mass/Vol] 31.7 g/dL Normal 29.9-35.2 [facility] Comment on above: Performed By: #### C BC ####[facility] [address] [place] [address] [place] MCV (RBC) [Entitic vol] 98.7 fL Critically high 80.0-94.0 [facility] Comment on above: Performed By: #### C BC ####[facility] [address] [place] MONO # 0.8 103/ul Normal 0.3-0.8 [facility] Comment on above: Performed By: #### C BC ####[facility] [address] [place] [address] [place] Monocytes/100 WBC (Bld) 12.2 % Critically high 1.7-12.0 [facility] Comment on above: Performed By: #### C BC ####[facility] [address] [place] [address] [place] NEUT # 4.2 103/ul Normal 1.4-6.5 [facility] Comment on above: Performed By: #### C BC ####[facility] Dlnbniswpm0820 [address] [place]ule[place] Neutrophils/100 WBC (Bld) 63.1 % Normal 43.0-75.0 [facility] Comment on above: Performed By: #### C BC ####[facility] [address] [place] [address]Sol [place] Platelet mean volume (Bld) [Entitic vol] 9.8 fL Normal 9.5-13.5 [facility] Comment on above: Performed By: #### C BC ####[facility] [address] [place] [id number] Archuleta PLT 137 103/ul Critically low 150-450 [facility] Comment on above: Performed By: #### C BC ####[facility] [address] [place] [id number] [place] RBC 4.57 106/ul Critically low 4.70-6.10 [facility] Comment on above: Performed By: #### C BC ####[facility] [address] [place], [place] [address]MfkrtdLizett Archuleta WBC 6.7 103/ul Normal 4.0-11.0 [facility] Comment on above: Performed By: #### C BC ####[facility] [address] [place] [id number] Archuleta [facility]on [facility]-06 EUA Statement SEE BELOW Normal [facility] Comment on above: Result Comment: This test is not yet approved or cleared by the [place] FDA. When there are no FDA-approved or cleared tests available, and other criteria are met, FDA can make tests available under an emergency access mechanism called an Emergency Use Authorization (EUA). The EUA for this test is supported by the [place] of Health and Human Service?s (HHS?s) declaration [...] SARS-CoV-2. Performed By: #### C VDTB #### [facility] [address] [place], [place] [id number] Lizett Archuleta SARS-CoV-2 (COVID-19) RNA EMMANUEL+probe Ql (Unsp spec) Not detected Normal NOT DETECTED [facility] Comment on above: Result Comment: This test is not yet approved or cleared by the [place] FDA. When there are no FDA-approved or cleared tests available, and other criteria are met, FDA can make tests available under an emergency access mechanism called an Emergency Use Authorization (EUA). The EUA for this test is supported by the [facility] Health and Human Service's (HHS's) declaration [...] used). Performed By: #### C VDTB #### [facility] [address] [place] [address] Lizett Garciaen PROF CHEM 8 (BAS METB)on Anion gap [Moles/Vol] 17.3 mmol/L Normal [facility] Comment on above: Performed By: #### B MP #### [facility] [address] [place] [address] Lizett Kathe Calcium [Mass/Vol] 9.5 mg/dL Normal 8.4-10.2 [facility] Comment on above: Performed By: #### B MP #### [facility] [address], [place] [address] Lizett Archuleta Chloride [Moles/Vol] 103 mmol/L Normal 98-107 [facility] Comment on above: Performed By: #### B MP #### [facility] [address] [id number] Lizett Kathe CO2 [Moles/Vol] 25.2 mmol/L Normal 22.0-30.0 [facility] Comment on above: Performed By: #### B MP #### [facility] [address] [id number] Lizett Kathe Creatinine [Mass/Vol] 0.85 mg/dL Normal 0.66-1.25 [facility] Comment on above: Performed By: #### B MP #### [facility] [address] [id number] Lizett Kathe EGFR-AF ANGOLAN >60 Normal >=60 [facility] Comment on above: Performed By: #### B MP #### [facility] [address] [address] Lizett Kathe EGFR-NON AF ANGOLAN >60 Normal >=60 [facility] Comment on above: Performed By: #### B MP #### [facility] [address] [address] Lizett Kathe Glucose [Mass/Vol] 102 mg/dL Normal 74-106 [facility] Comment on above: Performed By: #### B MP #### [facility] [address] [address] Lizett Kathe Potassium [Moles/Vol] 4.5 mmol/L Normal 3.4-5.0 [facility] Comment on above: Performed By: #### B MP #### [facility] [address] [address] Lizett Kathe Sodium [Moles/Vol] 141 mmol/L Normal 137-145 [facility] Comment on above: Performed By: #### B MP #### [facility] [address] [id number] Lizett Kathe Urea nitrogen [Mass/Vol] 20.0 mg/dL Normal 9.0-20.0 [facility] Comment on above: Performed By: #### B MP #### [facility] [address] [address] Lizett Archuleta Urea nitrogen/Creatinine [Mass ratio] 23.5 mg/mg Normal [facility] Comment on above: Performed By: #### B MP #### [facility] [id number] CHEST W CONon 09-07-2020 CT [...] by: DARRYL GRIDER Date: 2020-09-07 11:06 Normal [facility] LIVER PROFILEon 09-07-2020 Albumin [Mass/Vol] 3.8 g/dL Normal 3.5-5.0 [facility] Comment on above: Performed By: #### L IVER, TSH, T4 #### [facility] [address] [place], [place] [phone] Lizett Archuleta Albumin/Globulin [Mass ratio] 1.0 {ratio} Normal [facility] Comment on above: Performed By: #### L IVER, TSH, T4 #### [facility] [address] [phone] Lizett Archuleta ALP [Catalytic activity/Vol] 60 U/L Normal 38-126 [facility] Comment on above: Performed By: #### L IVER, TSH, T4 #### [facility] [address] [place] [address] Lizett Kathe ALT [Catalytic activity/Vol] 16 U/L Critically low 21-72 [facility] Comment on above: Performed By: #### L IVER, TSH, T4 #### [facility] [address] [place] [address] Lizett Kathe AST [Catalytic activity/Vol] 17 U/L Normal 17-59 [facility] Comment on above: Performed By: #### L IVER, TSH, T4 #### [facility] [address] [place] [address] Lizett Kathe BILI, CONJUGATED 0.3 mg/dL Normal 0.0-0.3 [facility] Comment on above: Performed By: #### L IVER, TSH, T4 #### [facility] [address] [place] [address] Lizett Kathe Bilirubin [Mass/Vol] 1.2 mg/dL Normal 0.2-1.3 [facility] Comment on above: Performed By: #### L IVER, TSH, T4 #### [facility] [address] [place] [address] Lizett Kathe Globulin (S) [Mass/Vol] 3.8 g/dL Normal [facility] Comment on above: Performed By: #### L IVER, TSH, T4 #### [facility] [address] [place] [address] Lizett Kathe Protein [Mass/Vol] 7.6 g/dL Normal 6.1-8.2 [facility] Comment on above: Performed By: #### L IVER, TSH, T4 #### [facility] [address] [place], [place] [phone] Lizett Kathe T4on 09-07-2020 T4 [Mass/Vol] 9.40 ug/dL Normal 5.53-11.00 [facility] Comment on above: Performed By: #### L IVER, TSH, T4 #### [facility] [address] [phone] Lizett Archuleta TSHon 09-07-2020 TSH 1.447 uIU/mL Normal 0.470-4.680 [facility] Comment on above: Performed By: #### L IVER, TSH, T4 #### [facility] [address] [phone] Lizett Archuleta TSH RANGE SEE BELOW Normal [facility] Comment on above: Result Comment: <0.3 4 UIU/ml HYPERTHYROID 0.34-5.60 UIU/ml EUTHYROID >5.60 UIU/ml HYPOTHYROID Performed By: #### L IVER, TSH, T4 #### [facility] [address] [phone] Lizett Archuleta XR CHEST 2 Von 09-07-2020 [...] by: CLARE WEST Date: 2020-09-07 11:49 Normal [facility] HEMOGLOBINon 08-10-2020 Hemoglobin (Bld) [Mass/Vol] 14.2 g/dL Normal 14.0-18.0 [facility] Comment on above: Performed By: #### H GB ####[facility] [address] [id number] Archuleta PROF CHEM 8 (BAS METB)on Anion gap [Moles/Vol] 9.9 mmol/L Normal [facility] Comment on above: Performed By: #### B MP #### [facility] [address] [phone] Lizett Archuleta Calcium [Mass/Vol] 9.2 mg/dL Normal 8.4-10.2 [facility] Comment on above: Performed By: #### B MP #### [facility] [address] [phone] Lizett Kathe Chloride [Moles/Vol] 101 mmol/L Normal 98-107 [facility] Comment on above: Performed By: #### B MP #### [facility] [address] [phone] Lizett Kathe CO2 [Moles/Vol] 31.5 mmol/L Critically high 22.0-30.0 [facility] Comment on above: Performed By: #### B MP #### [facility] [address] [phone] Lizett Kathe Creatinine [Mass/Vol] 0.84 mg/dL Normal 0.66-1.25 [facility] Comment on above: Performed By: #### B MP #### [facility] [address] [place] [address] Lizett Kathe EGFR-AF ANGOLAN >60 Normal >=60 [facility] Comment on above: Performed By: #### B MP #### [facility] [address] [address] Lizett Kathe EGFR-NON AF ANGOLAN >60 Normal >=60 [facility] Comment on above: Performed By: #### B MP #### [facility] [address] [phone] Lizett Kathe Glucose [Mass/Vol] 114 mg/dL Critically high 74-106 [facility] Comment on above: Performed By: #### B MP #### [facility] [address] [phone] Lizett Kathe Potassium [Moles/Vol] 4.4 mmol/L Normal 3.4-5.0 [facility] Comment on above: Performed By: #### B MP #### [facility] [address] [phone] Lizett Kathe Sodium [Moles/Vol] 138 mmol/L Normal 137-145 [facility] Comment on above: Performed By: #### B MP #### [facility] [address] [place] [address] Lizett Kathe Urea nitrogen [Mass/Vol] 20.0 mg/dL Normal 9.0-20.0 [facility] Comment on above: Performed By: #### B MP #### [facility] [address] [place], [place] [address] Lizett Archuleta Urea nitrogen/Creatinine [Mass ratio] 23.8 mg/mg Normal [facility] Comment on above: Performed By: #### B MP #### [facility] [address] [place], [place] [address] Lizett Archuleta COLONOSCOPY PROCEDUREon 04-06 No dictation [place], [place] COVID-19on 04-21-2020 SARS-CoV-2 [place], [place] SARS-CoV-2, PCR Not Detected Not Detected [place], [place] Comment on above: (NOTE) The Aptima SARS-CoV-2 assay is a nucleic acid amplification test intended for the qualitative detection of RNA from SARS-CoV-2 isolated and purified from nasopharyngeal (HEEL COMPRESSOR), nasal and oropharyngeal (OP) swab specimens from patients with signs and symptoms of infection who are suspected of COVID-19. Results are for the identification of SARS-CoV-2 RNA. The SARS-CoV-2 RNA is generally detectable in nasopharyngeal and oropharyngeal swabs during the acute phase of infection. The Aptima SARS-CoV-2 Assay on the [employer] system is intended for use by laboratory personnel specifically instructed and trained in the operation of the [employer] system. The Aptima SARS-CoV-2 assay is [...] The above 1 analytes were performed by [facility] Ian [place] [address] SARS-CoV-2, Rapid [place], [place] Source .NASOPHARYNGEAL SWAB [place], [place] [id number] 04-21-2020 SARS-CoV-2 Not Detected Normal Not Detected [facility] Comment on above: Result Comment: (NOT E) The Aptima SARS-CoV-2 assay is a nucleic acid amplification test intended for the qualitative detection of RNA from SARS-CoV-2 isolated and purified from nasopharyngeal (HEEL COMPRESSOR), nasal and oropharyngeal (OP) swab specimens from patients with signs and symptoms of infection who are suspected of COVID-19. Results are for the identification of SARS-CoV-2 RNA. The SARS-CoV-2 RNA is generally detectable in nasopharyngeal and oropharyngeal swabs during the acute phase of infection. The Aptima SARS-CoV-2 Assay on the [place] [employer] system is intended for use by laboratory personnel specifically instructed and trained in the operation of the [place] and [employer] [employer] system. The Aptima SARS-CoV-2 assay is [...] The above 1 analytes were performed by [address] [address] Performed By: #### C OVID #### [address] [address] Officer Captain: Damion Aparicio MD [facility] [address] [place] [address] [place] [address] Officer Captain: Mario Alberto Minor MD [facility] [address] [place] [address] Officer Captain: Nettie Benoit MD [id number] 04-20-2020 SARS-CoV-2,Rapid Normal [facility] Comment on above: Performed By: #### C OVID #### [address] [address] Officer Captain: Damion Aparicio MD [facility] [address] [place] [address] Officer Captain: Mario Alberto Minor MD [facility] [address] [place] [address] Officer Captain: Nettie Benoit MD SARS-CoV-2 [facility] Comment on above: Performed By: #### C OVID #### [facility] [address] [place] [address] Officer Captain: Damion Aparicio MD [facility] [address] [place] [id number] Officer Captain: Mario Alberto Minor MD [facility] [address] [place] [address] Officer Captain: Nettie Benoit MD [id number] 04-19-2020 SARS-CoV-2 Source .NASOPHARYNGEAL SWAB [facility] Comment on above: Performed By: #### C OVID #### [facility] [address] [place] [address] Officer Captain: Damion Aparicio MD [facility] [address] [place], [place] [id number] Officer Captain: Mario Alberto Minor MD [facility] [address] [place] [address] Officer Captain: Nettie Benoit MD Vital Signs Date Time Vital Sign Value Performing Clinician Facility 09-15-2024 13:160500 Body height 170.2 cm Amilcar Rus DPM Work Phone: [facility] 09-15-2024 13:16-0500 Body mass index (BMI) [Ratio] 34.14 kg/m2 Amilcar Rusher DPM Work Phone: [facility] 09-15-2024 13:16-0500 Body weight 98.88 kg Amilcar Rusher DPM Work Phone: [facility] 08-24-2024 11:14-0500 Body height 170.2 cm Amilcar Rusher DPM Work Phone: [facility] 08-24-2024 11:14-0500 Body mass index (BMI) [Ratio] 34.14 kg/m2 Amilcar Rusher DPM Work Phone: [facility] 08-24-2024 11:14-0500 Body weight 98.88 kg Amilcar Rusher DPM Work Phone: [facility] 07-20-2024 13:18-0400 Body height 170.2 cm Amilcar Rusher DPM Work Phone: [facility] 07-20-2024 13:18-0400 Body mass index (BMI) [Ratio] 34.14 kg/m2 Amilacr Rusher DPM Work Phone: [facility] 07-20-2024 13:18-0400 Body weight 98.88 kg Amilcar Rusher DPM Work Phone: [facility] 07-15-2024 13:32-0400 Body height 170.2 cm Amilcar Rusher DPM Work Phone: [facility] 07-15-2024 13:32-0400 Body mass index (BMI) [Ratio] 36.49 kg/m2 Amilcar Rusher DPM Work Phone: [facility] 07-15-2024 13:32-0400 Body weight 105.69 kg Amilcar Rusher DPM Work Phone: [facility] 06-11-2024 13:11-0400 Body height 170.2 cm Yarelis Mcallister HEEL COMPRESSOR Work Phone: [facility] 06-11-2024 13:11-0400 Body mass index (BMI) [Ratio] 36.49 kg/m2 Yarelis Mcallister HEEL COMPRESSOR Work Phone: [facility] 06-11-2024 13:11-0400 Body weight 105.69 kg Yarelis Mcallister HEEL COMPRESSOR Work Phone: [facility] 06-11-2024 13:11-0400 Diastolic blood pressure 80 mm[Hg] Yarelis Mcallister HEEL COMPRESSOR Work Phone: [facility] 06-11-2024 13:11-0400 Heart rate 52 /min Yarelis Mcallister HEEL COMPRESSOR Work Phone: [facility] 06-11-2024 13:11-0400 SaO2% (BldA) [Mass fraction] 95 % Yarelis Mcallister HEEL COMPRESSOR Work Phone: [facility] 06-11-2024 13:11-0400 Systolic blood pressure 110 mm[Hg] Yarelis Mcallister HEEL COMPRESSOR Work Phone: [facility] 04-22-2020 11:28-0400 BP Diastolic 76 mm[Hg] [facility] [place] 04-22-2020 11:28-0400 BP Systolic 128 mm[Hg] [facility] [employer] [place], [place] 04-22-2020 11:28-0400 Pulse (Heart Rate) 57 /min [facility] [employer] [place], [place] 04-22-2020 11:28-0400 Pulse Oximetry 97 % [facility] [employer] [place], [place] 04-22-2020 11:28-0400 Respiratory Rate 16 /min [facility] [place] 04-22-2020 10:58-0400 Body Temperature 98.49 [degF] [facility] [place] 04-22-2020 09:02-0400 BMI (Body Mass Index) 35.18 kg/m2 [facility] [employer] [place], [place] 04-22-2020 09:02-0400 Body weight 103.42 kg [facility] [place], [place] 04-22-2020 09:02-0400 Height [facility].5 [facility] [place] [place] Encounters Encounter Date Encounter Type Care Provider Facility Start: 09-15-2024 End: 09-15-2024 [email or web address] Amilcar Lindsay DPM Work Phone: [facility] Start: 09-15-2024 End: 09-15-2024 [employer] Amilcar Lindsay DPM Work Phone: [facility] Start: 09-15-2024 End: 09-15-2024 Office outpatient visit 15 minutes Amilcar Lindsay DPM Work Phone: [facility] Comment on above: Other acquired defor mities of right foot (Primary Dx); Varus deformity, not elsewhere classified, left ankle; Varus deformity, not elsewhere classified, right ankle; CMT (Vkepdxj-Ughos-Gagpl disease); Localized edema Start: 09-15-2024 End: 09-15-2024 ambulatory AMILCAR Sabrina ANGÉLICA Not Available Start: 08-26-2024 End: 08-26-2024 Telephone encounter Amilcar Lindsay DPM Work Phone: [facility] Comment on above: Advice Only Start: 08-24-2024 End: 08-24-2024 Bamboo flowsheet Amilcar Lindsay DPM Work Phone: [facility] Start: 08-24-2024 End: 08-24-2024 Bamboo flowsheet Amilcar Lindsay DPM Work Phone: [facility] Start: 08-24-2024 End: 08-24-2024 Postop follow up visit related to original px Amilcar Lindsay DPM Work Phone: [facility] Comment on above: Other acquired defor mities of right foot (Primary Dx); Varus deformity, not elsewhere classified, left ankle; Varus deformity, not elsewhere classified, right ankle; Instability of left ankle joint; Instability of right ankle joint; CMT (Baopfxx-Fqqwp-Lfhct disease); Difficulty walking; Acquired equinus deformity of left foot Start: 08-24-2024 End: 08-24-2024 ambulatory AMILCAR Sabrina ANGÉLICA Not Available Start: 08-10-2024 End: 08-10-2024 Telephone encounter Amilcar Lindsay DPM Work Phone: [facility] Comment on above: Advice Only ([employer]) Start: 07-20-2024 End: 07-20-2024 Bamboo flowsheet Amilcar Lindsay DPM Work Phone: [facility] Start: 07-20-2024 End: 07-20-2024 Bamboo flowsheet Amilcar Lindsay DPM Work Phone: [facility] Start: 07-20-2024 End: 07-20-2024 Postop follow up visit related to original px Amilcar Lindsay DPM Work Phone: [facility] Comment on above: Other acquired defor mities of right foot (Primary Dx); Varus deformity, not elsewhere classified, left ankle; Varus deformity, not elsewhere classified, right ankle; Instability of left ankle joint; Instability of right ankle joint; Acquired equinus deformity of left foot; CMT (Crtijga-Fsfgq-Pxujs disease) Start: 07-20-2024 End: 07-20-2024 ambulatory AMILCAR LINDSAY Not Available Start: 07-15-2024 End: 07-15-2024 [email or web address] Amilcar Lindsay DPM Work Phone: [facility] Start: 07-15-2024 End: 07-15-2024 [email or web address] Amilcar Lindsay DPM Work Phone: [facility] Start: 07-15-2024 End: 07-15-2024 ambulatory AMILCAR LINDSAY Not Available Start: 07-15-2024 End: 07-15-2024 Office outpatient new 30 minutes Amilcar Lindsay DPM Work Phone: [facility] Comment on above: Varus deformity, not elsewhere classified, left ankle (Primary Dx); Other acquired deformities of right foot; Varus deformity, not elsewhere classified, right ankle; Instability of left ankle joint; Instability of right ankle joint; CMT (Rxxctmo-Fgwvf-Bsmve disease); Acquired equinus deformity of left foot; Difficulty walking Start: 06-19-2024 End: 06-22-2024 ambulatory [facility] Start: 06-11-2024 End: 06-11-2024 Patient encounter procedure Yarelis Mcallister NP Work Phone: [facility] Comment on above: Medicare annual well ness visit, subsequent (Primary Dx); Screening for cardiovascular condition; Screening for lipid disorders; Other hyperlipidemia ([facility]/HCC); Hyperglycemia; Inversion deformity of left foot; Pain in left ankle and joints of left foot; Poor balance; Obstructive sleep apnea syndrome; CPAP (continuous positive airway pressure) dependence; Chronic systolic heart failure ([facility]); Essential hypertension ([facility]); Paroxysmal atrial fibrillation ([facility]); Atherosclerosis of [place] coronary artery of [place] heart without angina pectoris ([facility]); Gastroesophageal reflux disease, unspecified whether esophagitis present; Erectile dysfunction, unspecified erectile dysfunction type; Sensorineural hearing loss (SNHL) of both ears; half-way current use of anticoagulant therapy; Hyperlipidemia LDL goal <70 ([facility]) Start: 06-11-2024 End: 06-11-2024 ambulatory YARELIS MCALLISTER Not Available Start: 05-05-2024 End: 05-05-2024 ambulatory TIFFANIE JULIO Not Available Start: 11-15-2023 End: 11-15-2023 ambulatory YARELIS MCALLISTER Not Available Start: 11-14-2023 Chart abstracting [facility] gale [facility] Start: 03-07-2021 End: 03-08-[address] DOCTOR GALLAGHER Facility:[facility] Start: 01-04-2021 End: 01-05-2021 ambulatory BROOKS GAUTAM Facility:[facility] Start: 09-23-2020 End: 09-24-[address] ELIZABETH CRAVEN Facility:[facility] Start: 09-19-2020 End: 09-20-[address] DOCTOR GALLAGHER Facility:[facility] Start: 09-07-2020 End: 09-08-[address] ELIZABETH CRAVEN Facility:[facility] Start: 08-10-2020 End: 08-11-[address] ELIZABETH CRAVEN Facility: Start: 04-22-2020 End: 04-22-2020 Patient encounter procedure KENA COREY [facility] Start: 04-22-2020 End: 04-22-2020 Subsequent hospital visit by physician Kena Corey Work Phone: [facility] Start: 04-19-2020 End: 04-24-2020 Patient encounter procedure JOSE FISH [facility] Start: 04-19-2020 End: 04-23-2020 Subsequent hospital visit by physician [facility] Covid19 Pat Screening Schedule MTHZ PRE ADMIT Start: 03-30-2020 End: 03-31-2020 ambulatory RENETTA BUNCH Facility:[facility] Procedures Date Procedure Procedure Detail Performing Clinician Start: 01-04-2021 ANESTH CARDIAC ELECTROPHYS BROOKS GAUTAM Start: 01-04-2021 CATH, EP, DIAG/ABL, 3D/VECT BROOKS GAUTAM Start: 01-04-2021 ELECTROPHYS MAP 3D ADD-ON BROOKS GAUTAM Start: 01-04-2021 TX ATRIAL FIB PULM V EIN ISOL BROOKS GAUTAM Start: 04-22-2020 DISCHARGE PATIENT JOSE FELDERGUI Start: 04-22-2020 Ecg routine ecg w/le ast 12 lds w/i&r JOSE FISH Start: 04-22-2020 INSERT PERIPHERAL IV RUSS IS FISH Start: 04-22-2020 COLONOSCOPY PROCEDURE L UIS FISH Start: 04-22-2020 End: 04-22-2020 Colonoscopy Kena Corey Work Phone: Start: 04-19-2020 COVID-19 JOSE JAURE TIFFANY Start: 04-19-2020 COVID-19 Rashad Jau regui Work Phone: Plan of Treatment Date Care Activity Detail Author Start: 04-22-2030 Screening for malign ant neoplasm of colon [facility] Start: 12-10-2024 End: 12-10-2024 Patient encounter procedure 12/10/2024 1:30 PM EST Office Visit [facility] [address] [place] [address] Yarelis Mcallister, HEEL COMPRESSOR [address] [place] [address] [facility] Start: 09-15-2024 End: 09-15-2024 Patient encounter procedure [facility] Comment on above: Arrived Start: 07-20-2024 End: 07-20-2024 Patient encounter procedure 07/20/2024 1:15 PM EDT Office Visit [facility] [address] [place] [address] Amilcar Lindsay, DPM [address] [place] [address] Arrived [facility] Comment on above: Arrived Start: 06-11-2024 End: 06-11-2025 CBC W Auto Differential panel - Blood CBC and differential Lab Routine Screening for cardiovascular condition Expected: 06/11/2024 (Approximate), Expires: 06/11/2025 [facility] Comment on above: Expected: 06/11/2024 (Approximate), Expires: 06/11/2025 Start: 06-11-2024 End: 06-11-2025 Comprehensive metabolic 2000 panel - Serum or Plasma Comprehensive metabolic panel Lab Routine Screening for cardiovascular condition Expected: 06/11/2024 (Approximate), Expires: 06/11/2025 [facility] Work Phone: Comment on above: Expected: 06/11/2024 (Approximate), Expires: 06/11/2025 Start: 06-11-2024 End: 06-11-2025 Hemoglobin A1c/Hemoglobin.total in Blood Hemoglobin A1c Lab Routine Hyperglycemia Expected: 06/11/2024 (Approximate), Expires: 06/11/2025 [facility] Comment on above: Expected: 06/11/2024 (Approximate), Expires: 06/11/2025 Start: 06-11-2024 End: 06-11-2025 Lipid 1996 panel - Serum or Plasma Lipid panel Lab Routine Screening for cardiovascular condition Screening for lipid disorders Other hyperlipidemia ([facility]) Expected: 06/11/2024 (Approximate), Expires: 06/11/2025 [facility] Comment on above: Expected: 06/11/2024 (Approximate), Expires: 06/11/2025 Start: 06-07-2024 Influenza vaccination Influenza Vacc ine (#1) [facility] Start: 05-15-2024 Medicare Annual Wellness (AWV) Medicare Annual Wellness (AWV) [facility] Start: 11-15-2023 End: 11-15-2023 Patient encounter procedure 11/15/2023 1:00 PM EST Office Visit [facility] [address] [place] [id number] Yarelis Mcallister, HEEL COMPRESSOR [address] [place] [address] [facility] Start: 06-07-2023 Influenza vaccination Influenza Vacc ine (#1) [facility] Start: 06-07-2020 Influenza vaccination Flu vaccine (# 1) [place], [place] Start: 11-27-2019 Annual Wellness Visi t (AWV) Annual Wellness Visit (AWV) [place], [place] Start: 2017 Pneumococcal 65+ yea rs Vaccine (1 of 1 - PPSV23) Pneumococcal 65+ years Vaccine (1 of 1 - PPSV23) [place] Start: 2002 Shingles Vaccine (1 of 2) Shingles Vaccine (1 of 2) [place] Start: 1992 Diabetes screen Diabetes screen [place], [place] Start: 1971 DTaP/Tdap/Td vaccine (1 - Tdap) DTaP/Tdap/Td vaccine (1 - Tdap) [place], [place] Start: 1962 Lipid panel Lipid screen [place], [place] Start: 1952 Abdominal aortic aneurysm screening AAA screen [place], [place] Start: 1952 Creatinine measurement Creatinine mo [place]itoring [place], [place] Start: 1952 Hepatitis C screening Hepatitis C sc reen [place], [place] Start: 1952 Potassium monitoring Potassium monit oring [place] Start: 1952 Screening for malign ant neoplasm of colon [facility] Start: 1952 TSH Qn TSH testing [place], [place] EKG 12 Lead EKG 12 Lead ECG STAT 04/22/2020 8:41 AM EDT [place], [place] Immunizations Immunization Date Immunization Notes Care Provider Fa yakovty 07-06-2024 ABRYSVO - Respirator y syncytial virus (RSV), vaccine, bivalent, protein subunit RSV prefusion F, diluent reconstituted, 0.5 mL, PF Amilcar Lindsay DPM Work Phone: [facility] 06-12-2024 influenza, high dose seasonal, preservative-free Amilcar Lindsay DPM Work Phone: [facility] 07-06-2023 SARS-COV-2 (COVID-19 ) vaccine, mRNA, spike protein, LNP, PF, antony-sucrose, 30 mcg/0.3 mL Yarelisloretta DayMcallister HEEL COMPRESSOR Work Phone: [facility] 07-06-2023 influenza virus vacc ine, unspecified formulation Yarelis Mcallister HEEL COMPRESSOR Work Phone: [facility] 07-02-2023 Influenza, Seasonal, Quadrivalent, Adjuvanted Amilcar Angélica DPM Work Phone: [facility] 07-24-2022 SARS-COV-2 (COVID-19 ) vaccine, mRNA, spike protein, LNP, bivalent, preservative free, 30 mcg/0.3 mL dose, antony-sucrose formulation Yarelisloretta DayMcallister HEEL COMPRESSOR Work Phone: [facility] 07-10-2022 influenza virus vacc ine, unspecified formulation Yarelis Mcallister HEEL COMPRESSOR Work Phone: [facility] 06-21-2022 influenza, high dose seasonal, preservative-free Yarelis Mcallister HEEL COMPRESSOR Work Phone: [facility] 06-21-2022 Influenza, High-dose Seasonal, Quadrivalent, Preservative Free Yarelis Mcallister HEEL COMPRESSOR Work Phone: [facility] 07-14-2021 Influenza, High-dose Seasonal, Quadrivalent, Preservative Free Yarelis Mcallister HEEL COMPRESSOR Work Phone: [facility] 07-07-2021 influenza virus vacc ine, unspecified formulation Yarelis Mcallister HEEL COMPRESSOR Work Phone: [facility] 07-06-2021 Pfizer Purple Cap SARS-CoV-2 Vaccination Yarelis Mcallister HEEL COMPRESSOR Work Phone: [facility] 12-05-2020 SARS-CoV-2, Unspecified Hail bubba DayMcallister HEEL COMPRESSOR Work Phone: [facility] 11-24-2020 Pfizer Purple Cap SARS-CoV-2 Vaccination Yarelis Mcallister HEEL COMPRESSOR Work Phone: [facility] 11-03-2020 Pfizer Purple Cap SARS-CoV-2 Vaccination Yarelis Mcallister HEEL COMPRESSOR Work Phone: [facility] 10-27-2020 pneumococcal conjuga te vaccine, 13 valent Yarelis Dayerson HEEL COMPRESSOR Work Phone: [facility] 10-27-2020 pneumococcal polysaccharide vaccine, 23 valent Yarelis Dayerson HEEL COMPRESSOR Work Phone: [facility] 07-04-2020 Influenza, High-dose Seasonal, Quadrivalent, Preservative Free Yarelis Dayerson HEEL COMPRESSOR Work Phone: [facility] 08-03-2019 influenza, injectabl e, quadrivalent, preservative free Yarelisloretta DayMcallister HEEL COMPRESSOR Work Phone: [facility] 04-29-2019 pneumococcal polysaccharide vaccine, 23 valent Yarelis Dayerson HEEL COMPRESSOR Work Phone: [facility] 04-29-2019 tetanus toxoid, redu maureen diphtheria toxoid, and acellular pertussis vaccine, adsorbed Yarelis Mcallister HEEL COMPRESSOR Work Phone: [facility] 10-03-2018 influenza, high dose seasonal, preservative-free Yarelis Dayerson HEEL COMPRESSOR Work Phone: [facility] 09-25-2018 zoster vaccine recombinant Yarelis Dayerson HEEL COMPRESSOR Work Phone: [facility] 08-26-2018 zoster vaccine recombinant Yarelis Dayerson HEEL COMPRESSOR Work Phone: [facility] 03-26-2018 zoster vaccine recombinant Yarelis Dayerson HEEL COMPRESSOR Work Phone: [facility] 02-25-2018 pneumococcal conjuga te vaccine, 13 valent Yarelis Dayerson HEEL COMPRESSOR Work Phone: [facility] 02-25-2018 zoster vaccine recombinant Yarelis Dayerson HEEL COMPRESSOR Work Phone: [facility] 01-05-2006 TD(adult) unspecifie d formulation Yarelis Mcallister HEEL COMPRESSOR Work Phone: [facility] Payers Date Payer Category Payer Medicare MEDICARE MEDICAR E PART A AND B [id number] 2019-[facility] [phone] [place] [address] [id number] 2019 Unknown GENERIC MANAGED CARE GENERIC MANAGED CARE [id number] 2019-Present [id number] 2017 Medicare [id number] 2017 Private Health Insurance [id number] 2017 Unknown [id number] 1959 Medicare [id number] 1959 Unknown [id number] 1952 Unknown [id number] 2.16.840.1.752745.3.579. 2.173 1952 Unknown [id number] 2.16.840.1.065749.3.579. 2.173 1952 Unknown [id number] 2.16.840.1.187385.3.579. 2.647 1952 Unknown [id number] 2.16.840.1.019621.3.579. 2.593 1952 Unknown [id number] 2.16.840.1.549381.3.579. 2.593 1952 Unknown [id number] 2.16.840.1.393776.3.579. 2.593 1952 Unknown [id number] 2.16.840.1.177541.3.579. 2.593 1952 Unknown [id number] 2.16.840.1.138395.3.579. 2.593 1952 Unknown [id number] 2.16.840.1.792937.3.579. 2.593 1952 Unknown [id number] 2.16.840.1.031184.3.579. 2.593 1952 Unknown [id number] 2.16.840.1.886842.3.579. 2.1259 1952 Unknown [id number] 2.16.840.1.296283.3.579. 2.1259 1952 Unknown [id number] 2.16.840.1.717103.3.579. 2.1259 1952 Unknown [id number] 2.16.840.1.984008.3.579. 2.1259 1952 Unknown [id number] 2.16.840.1.476201.3.579. 2.1259 1952 Unknown [id number] 2.16.840.1.251479.3.579. 2.1259 1952 Unknown [id number] 2.16.840.1.604667.3.579. 2.1259 Social History Date Type Detail Facility Start: 04-22-2020 End: 06-11-2024 Tobacco smoking status NHIS Former smoker [facility] End: 11-24-2005 History of tobacco use Current [place]oker [place] Start: 04-22-2020 End: 06-11-2024 Tobacco use and exposure Never used [place], [place] Start: 11-27-2019 History SDOH Social Connections Living 3 [place] Start: 04-22-2020 Alcohol Comment glass of wine 1-2x/week [place], [place] Start: 1950 Sex Assigned At Not on file [place] Exposure to SARS-CoV -2 (event) Not sure [place] End: 10-07-2005 History of tobacco use Cigarette Smoker [facility] Start: 05-15-2023 End: 06-11-2024 Alcohol intake Current drinker of alcohol (finding) [facility] Start: 05-15-2023 End: 06-11-2024 History of Social function [facility] Start: 05-15-2023 End: 06-11-2024 Alcohol Use Disorder Identification Test - Consumption [AUDIT-C] [facility] How often to you hav e a drink containing alcohol? Monthly or less [facility] How many standard dr inks containing alcohol do you have on a typical day? 1 or 2 [facility] How often do you hav e 6 or more drinks on 1 occasion? Never [facility] How often to you hav e a drink containing alcohol? 2-4 times a month [facility] Average Number of Drinks Not on file [facility] Clinical Notes 03-30-2020 to 09-15-2024 Amilcar Lindsay, DPM - 09/15/2024 1:00 PM ESTTelephone Encounter - Bernice Keller - 08/26/2024 2:29 PM ESTTelephone Encounter - Bernicecassie Issabisen - 08/26/2024 2:29 PM EST Note Date & Type Note Facility 09-15-2024 History of Present illness Narrative Images from the original note were not included. Subjective Patient ID: Nettie Ramirez is a 74 y.o. male who presents for Follow-up (Established pt presents today for 3 week ricthie brace checkup, pt states left ankle will be swollen after taking off the brace. States it takes 45 minutes for the swelling to go down after. SS: [id number]). HPI Established patient returns to clinic for Balta brace check. Overall he is doing well with the braces without any issues. He is concerned about swelling in his left lower extremity that he does not notice unless he wears the brace. Review of Systems Constitutional: Positive for activity change. Negative for appetite change. Respiratory: Negative for chest tightness and shortness of breath. Cardiovascular: Negative for chest pain. Musculoskeletal: Positive for arthralgias and gait problem. Skin: Negative for color change and wound. Neurological: Positive for weakness and numbness. Psychiatric/Behavioral: Negative for agitation and behavioral problems. Hematological: Does not bruise/bleed easily. Endocrine: Negative for cold intolerance and heat intolerance. Allergic/Immunologic: Negative for immunocompromised state. Past medical History Past Medical History: Diagnosis Date Arthritis Atrial fibrillation (CMS/HCC) 10/2017 CAD (coronary artery disease) (CMS/[facility]) History of kidney stones HTN (hypertension) (CMS/HCC) Osteoporosis (CMS/[facility]) Medications Current Outpatient Medications: apixaban (Eliquis) 5 MG tablet, every 12 (twelve) hours., Disp: , Rfl: atorvastatin (Lipitor) 20 MG tablet, Take 20 mg by mouth Daily, Disp: , Rfl: carvedilol (Coreg) 3.125 MG tablet, every 12 (twelve) hours., Disp: , Rfl: cholecalciferol (Vitamin D-3) 25 MCG (1000 UT) capsule, 1 capsule 1 (one) time each day at the same time., Disp: , Rfl: coenzyme Q-10 50 MG capsule, Take by mouth., Disp: , Rfl: furosemide (Lasix) 40 MG tablet, 1 (one) time each day at the same time., Disp: , Rfl: Lavender Oil oil, as directed, Disp: , Rfl: melatonin 5 MG tablet, Take 5 mg by mouth in the morning., Disp: , Rfl: sacubitril-valsartan (Entresto) 97-103 MG tablet, every 12 (twelve) hours., Disp: , Rfl: tadalafil (Cialis) 20 MG tablet, 1 tablet Orally for 30 day(s), Disp: , Rfl: zinc gluconate 50 MG tablet, Take 50 mg by mouth in the morning., Disp: , Rfl: Allergies Lisinopril Past Surgical History Past Surgical History: Procedure Laterality Date CATARACT EXTRACTION Left 10/2020 CT ANGIOGRAM HEART CORONARY 12/26/[address] ANGIOGRAM HEART CORONARY 10/09/2017 CT ANGIOGRAM TAVR HEART CATH 10/2017 [facility] [place] CATHETER, ABLATION 12/2020 [place] FUSION FOOT BONES,SUBTALAR Right 09/2019 subtalar joint fusion/Dr. Milligan TONSILLECTOMY Family History Family History Problem Relation Name Age of Onset Osteoarthritis Mother Heart disease Mother Stroke Mother Prostate cancer Father No Known Problems Maternal Grandmother No Known Problems Maternal Grandfather No Known Problems Paternal Grandmother No Known Problems Paternal Grandfather Osteoarthritis Sibling Hypertension Sibling Objective Physical Exam Constitutional: Appearance: He is obese. Comments: Accompanied by his . HENT: Head: Normocephalic and atraumatic. Cardiovascular: Pulses: Normal pulses. Comments: Plus one pitting edema bilaterally. Pulmonary: Effort: Pulmonary effort is normal. No respiratory distress. Abdominal: Palpations: There is no mass. Musculoskeletal: Cervical back: No rigidity. 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 Gait examination reveals varus instability bilaterally. Ankle dorsiflexion 0 degrees with the knee extended, flexed bilaterally. Muscle strength 4/5 for all quadrants bilaterally. Skin: Capillary Refill: Capillary refill takes less than 2 seconds. Findings: No lesion or rash. Comments: Hyperkeratotic lesion plantar 5th metatarsal head with pre ulceration. No drainage or cellulitis. Neurological: Mental Status: He is alert. Comments: Decreased protective sensation bilaterally. Psychiatric: Mood and Affect: Mood normal. Behavior: Behavior normal. Assessment/Plan ICD-10-CM 1. 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 Varus deformity, not elsewhere classified, right ankle M21.171 4. 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 Localized edema R60.0 Patient examined and evaluated. He seems to be responding well to Balta bracing. I recommend that he continue with the bracing indefinitely due to his varus deformity. Additionally patient had concerns about the brace causing some swelling. I reassured him that the brace is not the cause of the swelling but he notices the swelling when he wears the brace because of the indentations left from the brace. I recommend that he wear compression socks on a daily basis which will help control the swelling in his lower extremities and assist with circulation. Recommend low strength compression socks. Patient given a prescription for 15-20 mg Hg compression knee-high socks. Follow up as needed. This note was created with the assistance of a speech recognition program. While intending to generate a timely document that accurately reflects the content of the visit, no guarantee can be provided that every grammatical or spelling mistake has been or will be identified or corrected. Thank you for your understanding. Amilcar Lindsay DPM documented in this encounter [facility] 08-26-2024 Telephone encounter Note Patient brought brace in and Dr Lindsay did some adjustments. [facility] 08-26-2024 Miscellaneous Notes Patient brought brace in and Dr Lindsay did some adjustments. Pt said his right brace is bunching up as you trimmed the Lt brace, he was wondering if he can bring that brace in and if he could wait for it to be done or does he have to drop the brace off and lemon picker later? documented in this encounter [facility] 08-26-2024 Telephone encounter Note Pt said his right brace is bunching up as you trimmed the Lt brace, he was wondering if he can bring that brace in and if he could wait for it to be done or does he have to drop the brace off and lemon picker later? [facility] 08-24-2024 History of Present illness Narrative Images from the original note were not included. Subjective Patient ID: Nettie Ramirez is a 74 y.o. 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 SS: [id number].). HPI Established patient returns to clinic for [place] brace dispensing bilateral lower extremities. Review of Systems Constitutional: Positive for activity change. Negative for appetite change. Respiratory: Negative for chest tightness and shortness of breath. Cardiovascular: Negative for chest pain. Musculoskeletal: Positive for arthralgias and gait problem. Skin: Negative for color change and wound. Neurological: Positive for weakness and numbness. Psychiatric/Behavioral: Negative for agitation and behavioral problems. Hematological: Does not bruise/bleed easily. Endocrine: Negative for cold intolerance and heat intolerance. Allergic/Immunologic: Negative for immunocompromised state. Past medical History Past Medical History: Diagnosis Date Arthritis Atrial fibrillation ([facility]/HCC) 10/2017 CAD (coronary artery disease) (CMS/[facility]) History of kidney stones HTN (hypertension) ([facility]) Osteoporosis ([facility]) Medications Current Outpatient Medications: apixaban (Eliquis) 5 MG tablet, every 12 (twelve) hours., Disp: , Rfl: atorvastatin (Lipitor) 20 MG tablet, Take 20 mg by mouth Daily, Disp: , Rfl: carvedilol (Coreg) 3.125 MG tablet, every 12 (twelve) hours., Disp: , Rfl: cholecalciferol (Vitamin D-3) 25 MCG (1000 UT) capsule, 1 capsule 1 (one) time each day at the same time., Disp: , Rfl: coenzyme Q-10 50 MG capsule, Take by mouth., Disp: , Rfl: furosemide (Lasix) 40 MG tablet, 1 (one) time each day at the same time., Disp: , Rfl: Lavender Oil oil, as directed, Disp: , Rfl: melatonin 5 MG tablet, Take 5 mg by mouth in the morning., Disp: , Rfl: sacubitril-valsartan (Entresto) 97-103 MG tablet, every 12 (twelve) hours., Disp: , Rfl: tadalafil (Cialis) 20 MG tablet, 1 tablet Orally for 30 day(s), Disp: , Rfl: zinc gluconate 50 MG tablet, Take 50 mg by mouth in the morning., Disp: , Rfl: Allergies Lisinopril Past Surgical History Past Surgical History: Procedure Laterality Date CATARACT EXTRACTION Left 10/2020 CT ANGIOGRAM HEART CORONARY 12/26/[address] ANGIOGRAM HEART CORONARY 10/09/2017 CT ANGIOGRAM TAVR HEART CATH 10/2017 [facility] [place] CAT[place]TER[place]BLATION 12/2020 [place] FUSION FOOT BONES,SUBTALAR Right 09/2019 subtalar joint fusion/Dr. Milligan TONSILLECTOMY Family History Family History Problem Relation Name Age of Onset Osteoarthritis Mother Heart disease Mother Stroke Mother Prostate cancer Father No Known Problems Maternal Grandmother No Known Problems Maternal Grandfather No Known Problems Paternal Grandmother No Known Problems Paternal Grandfather Osteoarthritis Sibling Hypertension Sibling Objective Physical Exam Constitutional: Appearance: He is obese. Comments: Accompanied by his . HENT: Head: Normocephalic and atraumatic. Cardiovascular: Pulses: Normal pulses. Pulmonary: Effort: Pulmonary effort is normal. No respiratory distress. Abdominal: Palpations: There is no mass. Musculoskeletal: Cervical back: No rigidity. 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 Gait examination reveals varus instability bilaterally. Ankle dorsiflexion 0 degrees with the knee extended, flexed bilaterally. Muscle strength 4/5 for all quadrants bilaterally. Skin: Capillary Refill: Capillary refill takes less than 2 seconds. Findings: No lesion or rash. Comments: Hyperkeratotic lesion plantar 5th metatarsal head with pre ulceration. No drainage or cellulitis. Neurological: Mental Status: He is alert. Comments: Decreased protective sensation bilaterally. Psychiatric: Mood and Affect: Mood normal. Behavior: Behavior normal. Assessment/Plan ICD-10-CM 1. 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 Varus deformity, not elsewhere classified, right ankle M21.171 4. 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 Instability of right ankle joint M25.371 6. 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 Difficulty walking R26.2 8. 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 He presents for the fitting and dispensing of a Sulaiman brace for bilateral lower extremities. The braces were placed onto the foot and lower leg. The devices were custom fit to the patient by using a combination of one or more of the following accommodations: Bending, heat molding and/or trimming well beyond a kit assembly , to accommodate the anatomical deformities in accordance with the IFU and thus it is not a prefab OTS device. By modifying the device in this manner, it was made unique and custom fit only for this patient. The healthcare professional dispensing this device is licensed and, by definition, has the required expertise to perform these modifications. All these modifications were performed at the time of delivery to the patient. The patient was examined after final assembly of the devices on the lower extremities and was found to be able to ambulate with much less instability and pain and there was found to be no slippage or rubbing of the braces. The patient demonstrated their ability to don and doff the devices independently. The devices are suitable and not substandard at the time of dispensing. Goal of treatment is to reduce varus instability bilaterally and to reduce forefoot equinus symptomatology. He will wear these whenever weightbearing. Anticipated length of need is indefinite. Patient understands the return policy on the braces. ABN, proof of delivery signed. Follow-up 3 weeks for brace check. This note was created with the assistance of a speech recognition program. While intending to generate a timely document that accurately reflects the content of the visit, no guarantee can be provided that every grammatical or spelling mistake has been or will be identified or corrected. Thank you for your understanding. Amilcar Lindsay DPM documented in this encounter [facility] 08-10-2024 Telephone encounter Note Patient's sulaiman braces B/L arrived, will call to schedule [facility] 08-10-2024 Miscellaneous Notes Patient's sulaiman braces B/L arrived, will call to schedule documented in this encounter [facility] 07-20-2024 History of Present illness Narrative Images from the original note were not included. Subjective Patient ID: Nettie Ramirez is a 74 y.o. male who presents for Casting For Braces Or Orthotics (Pt presents today with this spouse for casting/scanning for [place] braces BL/SS: 9EEEE). HPI Established patient returns to clinic for Balta brace casting. Review of Systems Constitutional: Positive for activity change. Negative for appetite change. Respiratory: Negative for chest tightness and shortness of breath. Cardiovascular: Negative for chest pain. Musculoskeletal: Positive for arthralgias and gait problem. Skin: Negative for color change and wound. Neurological: Positive for weakness and numbness. Psychiatric/Behavioral: Negative for agitation and behavioral problems. Hematological: Does not bruise/bleed easily. Endocrine: Negative for cold intolerance and heat intolerance. Allergic/Immunologic: Negative for immunocompromised state. Past medical History Past Medical History: Diagnosis Date Arthritis Atrial fibrillation (CMS/HCC) 10/2017 CAD (coronary artery disease) ([facility]) History of kidney stones HTN (hypertension) ([facility]) Osteoporosis ([facility]) Medications Current Outpatient Medications: apixaban (Eliquis) 5 MG tablet, every 12 (twelve) hours., Disp: , Rfl: atorvastatin (Lipitor) 20 MG tablet, Take 20 mg by mouth Daily, Disp: , Rfl: carvedilol (Coreg) 3.125 MG tablet, every 12 (twelve) hours., Disp: , Rfl: cholecalciferol (Vitamin D-3) 25 MCG (1000 [place]) capsule, 1 capsule 1 (one) time each day at the same time., Disp: , Rfl: coenzyme Q-10 50 MG capsule, Take by mouth., Disp: , Rfl: furosemide (Lasix) 40 MG tablet, 1 (one) time each day at the same time., Disp: , Rfl: Lavender Oil oil, as directed, Disp: , Rfl: melatonin 5 MG tablet, Take 5 mg by mouth in the morning., Disp: , Rfl: sacubitril-valsartan (Entresto) 97-103 MG tablet, every 12 (twelve) hours., Disp: , Rfl: tadalafil (Cialis) 20 MG tablet, 1 tablet Orally for 30 day(s), Disp: , Rfl: zinc gluconate 50 MG tablet, Take 50 mg by mouth in the morning., Disp: , Rfl: Allergies Lisinopril Past Surgical History Past Surgical History: Procedure Laterality Date CATARACT EXTRACTION Left 10/2020 CT ANGIOGRAM HEART CORONARY 12/26/[address] ANGIOGRAM HEART CORONARY 10/09/2017 CT ANGIOGRAM TAVR HEART CATH 10/2017 [facility] [place] CATHETER[place] ABLATION 12/2020 [place] FUSION FOOT BONES,SUBTALAR Right 09/2019 subtalar joint fusion/Dr. Milligan TONSILLECTOMY Family History Family History Problem Relation Name Age of Onset Osteoarthritis Mother Heart disease Mother Stroke Mother Prostate cancer Father No Known Problems Maternal Grandmother No Known Problems Maternal Grandfather No Known Problems Paternal Grandmother No Known Problems Paternal Grandfather Osteoarthritis Sibling Hypertension Sibling Objective Physical Exam Constitutional: Appearance: He is obese. Comments: Accompanied by his . HENT: Head: Normocephalic and atraumatic. Cardiovascular: Pulses: Normal pulses. Pulmonary: Effort: Pulmonary effort is normal. No respiratory distress. Abdominal: Palpations: There is no mass. Musculoskeletal: Cervical back: No rigidity. 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 Gait examination reveals varus instability bilaterally. Ankle dorsiflexion 0 degrees with the knee extended, flexed bilaterally. Muscle strength 4/5 for all quadrants bilaterally. Skin: Capillary Refill: Capillary refill takes less than 2 seconds. Findings: No lesion or rash. Comments: Hyperkeratotic lesion plantar 5th metatarsal head with pre ulceration. No drainage or cellulitis. Neurological: Mental Status: He is alert. Comments: Decreased protective sensation bilaterally. Psychiatric: Mood and Affect: Mood normal. Behavior: Behavior normal. Assessment/Plan ICD-10-CM 1. 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 Varus deformity, not elsewhere classified, right ankle M21.171 4. 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 Instability of right ankle joint M25.371 6. Acquired equinus deformity of left foot M21.6X2 7. CMT (Tyqsqnn-Pbodr-Igxjb disease) G60.0 Patient was examined and evaluated. [place] brace is medically necessary due to severe deformity, instability, daily pain and difficulty with walking bilateral lower extremities. Additionally patient has preulcerative lesion plantar 5th metatarsal head on the right foot. The [place]ta brace will also provide offloading for this area. Explained in detail to the patient the purpose and function of the [place] brace. Due to the presenting deformity and instability the brace will be utilized. Patient understands a different shoe may be required due to bulk of bracing. Goals of treatment include stability of the foot and ankle during gait, protect from further injury and stresses to the foot. Patient sat in the treatment chair with leg extended. Ankle was placed at 90 degree(s) and subtalar joint was placed in neutral position. 1st ray was plantar flexed. 3-dimensional scanner was utilized to capture this position up to the mid calf. This process was carried out for both the right and left lower extremities. Prescription was filled out appropriately and sent to [email or web address]. We will have patient return to clinic for Sulaiman brace dispensing. This note was created with the assistance of a speech recognition program. While intending to generate a timely document that accurately reflects the content of the visit, no guarantee can be provided that every grammatical or spelling mistake has been or will be identified or corrected. Thank you for your understanding. Amilcar Lindsay DPM documented in this encounter [facility] 07-15-2024 History of Present illness Narrative Images from the original note were not included. Subjective Patient ID: Nettie Ramirez is a 74 y.o. 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 Had surgery on right foot. Pt relates bottom of foot hurts when walking, pt's relates numbness in left foot. Walks on outsides of feet. Ongoing for a while. ). HPI This is a new patient who presents to clinic via referral to discuss orthotics or braces for his feet. Patient has very high arched feet and tends to walk on the outside part of his foot. He has a history of subtalar arthrodesis on the right foot. Patient also has preulcerative lesion on the plantar aspect of the right foot. This is occasionally sore for him. Review of Systems Constitutional: Positive for activity change. Negative for appetite change. Respiratory: Negative for chest tightness and shortness of breath. Cardiovascular: Negative for chest pain. Musculoskeletal: Positive for arthralgias and gait problem. Skin: Negative for color change and wound. Neurological: Positive for weakness and numbness. Psychiatric/Behavioral: Negative for agitation and behavioral problems. Hematological: Does not bruise/bleed easily. Endocrine: Negative for cold intolerance and heat intolerance. Allergic/Immunologic: Negative for immunocompromised state. Past medical History Past Medical History: Diagnosis Date Arthritis Atrial fibrillation ([facility]) 10/2017 CAD (coronary artery disease) ([facility]) History of kidney stones HTN (hypertension) ([facility]) Osteoporosis ([facility]) Medications Current Outpatient Medications: apixaban (Eliquis) 5 MG tablet, every 12 (twelve) hours., Disp: , Rfl: atorvastatin (Lipitor) 20 MG tablet, Take 20 mg by mouth Daily, Disp: , Rfl: carvedilol (Coreg) 3.125 MG tablet, every 12 (twelve) hours., Disp: , Rfl: cholecalciferol (Vitamin D-3) 25 MCG (1000 UT) capsule, 1 capsule 1 (one) time each day at the same time., Disp: , Rfl: coenzyme Q-10 50 MG capsule, Take by mouth., Disp: , Rfl: furosemide (Lasix) 40 MG tablet, 1 (one) time each day at the same time., Disp: , Rfl: Lavender Oil oil, as directed, Disp: , Rfl: melatonin 5 MG tablet, Take 5 mg by mouth in the morning., Disp: , Rfl: sacubitril-valsartan (Entresto) 97-103 MG tablet, every 12 (twelve) hours., Disp: , Rfl: zinc gluconate 50 MG tablet, Take 50 mg by mouth in the morning., Disp: , Rfl: tadalafil (Cialis) 20 MG tablet, 1 tablet Orally for 30 day(s), Disp: , Rfl: Allergies Lisinopril Past Surgical History Past Surgical History: Procedure Laterality Date CATARACT EXTRACTION Left 10/2020 CT ANGIOGRAM HEART CORONARY 12/26/[address] ANGIOGRAM HEART CORONARY 10/09/2017 CT ANGIOGRAM TAVR HEART CATH 10/2017 [facility] [place]BL[place] 12/2020 [place] FUSION FOOT BONES,SUBTALAR Right 09/2019 subtalar joint fusion/Dr. Milligan TONSILLECTOMY Family History Family History Problem Relation Name Age of Onset Osteoarthritis Mother Heart disease Mother Stroke Mother Prostate cancer Father No Known Problems Maternal Grandmother No Known Problems Maternal Grandfather No Known Problems Paternal Grandmother No Known Problems Paternal Grandfather Osteoarthritis Sibling Hypertension Sibling Objective Physical Exam Constitutional: Appearance: He is obese. Comments: Accompanied by his . HENT: Head: Normocephalic and atraumatic. Cardiovascular: Pulses: Normal pulses. Pulmonary: Effort: Pulmonary effort is normal. No respiratory distress. Abdominal: Palpations: There is no mass. Musculoskeletal: Cervical back: No rigidity. 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 Gait examination reveals varus instability bilaterally. Ankle dorsiflexion 0 degrees with the knee extended, flexed bilaterally. Muscle strength 4/5 for all quadrants bilaterally. Skin: Capillary Refill: Capillary refill takes less than 2 seconds. Findings: No lesion or rash. Comments: Hyperkeratotic lesion plantar 5th metatarsal head with pre ulceration. No drainage or cellulitis. Neurological: Mental Status: He is alert. Comments: Decreased protective sensation bilaterally. Psychiatric: Mood and Affect: Mood normal. Behavior: Behavior normal. Assessment/Plan ICD-10-CM 1. 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 Other acquired deformities of right foot M21.6X1 Ambulatory referral to Podiatry 3. Varus deformity, not elsewhere classified, right ankle M21.171 4. 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 Instability of right ankle joint M25.371 6. 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 Acquired equinus deformity of left foot M21.6X2 8. Difficulty walking R26.2 Patient examined and evaluated. Patient has cavovarus deformity with metatarsus adductus bilaterally leading to lateral column overload. I suspect underlying CMT as well given his mild neuropathy and weakness. Discussed treatment options at length. He is in excellent candidate for bilateral [place] braces due to varus instability and preulcerative lesion along the 5th metatarsal head of the right foot. [place] braces are medically necessary to help with stability, offloading, and pressure redistribution to reduce the risk of ulceration going forward. The brace is will also improve function by stabilizing his ankle. Discuss risks and benefits of the brace at length with patient and his today. We will get prior authorization from his insurance company and if he would like to move forward with bracing we will have him come back for scanning. This note was created with the assistance of a speech recognition program. While intending to generate a timely document that accurately reflects the content of the visit, no guarantee can be provided that every grammatical or spelling mistake has been or will be identified or corrected. Thank you for your understanding. Amilcar Lindsay DPM documented in this encounter [facility] 06-19-2024 Note Lipid abnormalities are well-controlled with atorvastatin 20 mg daily states she wants him to start taking an omega supplement for his joint discomfort, therefore I told her to take [id number] as directed and have a discussion with her PCP-monitor for any bleeding tendencies Liver function normal and LDL less than 70 [facility] 06-19-2024 Note Currently recovered ejection fraction-was 20 to 25% in 2018 [facility] II currently euvolemic without exacerbation, denies any [...] want any more medicines at this time [facility] 06-19-2024 Note [id number]= 6 age, heart failure, hypertension and CAD/vascular disease Continue Eliquis anticoagulation patient denies any bleeding tendencies and carvedilol for rate control Per assessment patient is in rhythm and rate is well-controlled [facility] 06-19-2024 Note Coronary artery dise ase is [...] exercise as tolerated and continue all medications. [facility] 06-19-2024 Note Pt is here for a one year follow up. Pt denies chest pain, sob, palpatations. Review of Systems Cardiovascular: Positive for leg swelling. Respiratory: Positive for cough. Musculoskeletal: Positive for joint pain and joint swelling. All other systems reviewed and are negative. [facility] 06-19-2024 Note [facility] CARDIOLOGY PROGR ESS NOTE [...] output/cardiac index. Assessment/Plan: Atherosclerotic heart disease of [place] coronary artery without angina pectoris Coronary artery [...] regular exercise as (more content not included)... [facility] 06-11-2024 History of Present illness Narrative Subjective : Chief Complaint: Nettie Ramirez is an 74 y.o. male here for an annual wellness visit. HPI Patient Reported S/S to Nurse: Reviewed [facility]- C/o ongoing productive cough x months, worsening SOB with exertion, worsening sneezing Denies CP, PND Has cpap Left foot and ankle pain. Feels he is walking on the side. Otc insert dr quintana not helping. Interested in referral to a window and siding craftsman. C/o poor balance, questioning if PT would be beneficial Reviewed 11/2023 labs with pt-sent to lab to update [facility]- routine 11/2023 PSA- 11/28/2023- 0.10 HEP C SCREENING- COLON CANCER SCREENING- colonoscopy- 04/2020- hemorrhoids; per Dr Corey- no need for further colonosocpies d/t age VACCINES- 10/2020; [id number] 04/2019; shingrix 2017; tdap 04/2019 [facility]- 06/2024 [place]- [place] Dayan Flanagan/[place] [address] [facility]-Dr Bills/Ad[place] RECREATION THERAPY AIDE- Dr Milligan and Dr Frank- PRN DENTIST- Dr Virgen OPTOMALOGIST- Dr Shaffer/[place]- [place]- had MRI and is getting a brace made for his knee EDITOR CONTINUITY AND SCRIPT- Dr Ibrahim/[place]- Dr Julio/[facility] I have reviewed and reconciled the medication list with the patient today. Current Outpatient Medications Medication Sig Dispense Refill apixaban (Eliquis) 5 MG tablet every 12 (twelve) hours. atorvastatin (Lipitor) 20 MG tablet Take 20 mg by mouth Daily carvedilol (Coreg) 3.125 MG tablet every 12 (twelve) hours. cholecalciferol (Vitamin D-3) 25 MCG (1000 UT) capsule 1 capsule 1 (one) time each day at the same time. coenzyme Q-10 50 MG capsule Take by mouth. furosemide (Lasix) 40 MG tablet 1 (one) time each day at the same time. Lavender Oil oil as directed melatonin 5 MG tablet Take 5 mg by mouth in the morning. sacubitril-valsartan (Entresto) 97-103 MG tablet every 12 (twelve) hours. tadalafil (Cialis) 20 MG tablet 1 tablet Orally for 30 day(s) zinc gluconate 50 MG tablet Take 50 mg by mouth in the morning. No current facility-administered medications for this visit. Review of Systems Constitutional: Positive for fatigue. Negative for fever. HENT: Positive for congestion and sneezing. Negative for dental problem, hearing loss, sore throat, tinnitus, trouble swallowing and voice change. Eyes: Negative for visual disturbance. Respiratory: Positive for cough and shortness of breath. Negative for chest tightness and wheezing. Cardiovascular: Negative for chest pain, palpitations and leg swelling. Gastrointestinal: Negative for abdominal distention, abdominal pain, blood in stool, constipation, diarrhea, nausea, rectal pain and vomiting. Genitourinary: Negative for difficulty urinating, dysuria, frequency, hematuria and urgency. Musculoskeletal: Positive for arthralgias and gait problem. Negative for joint swelling and myalgias. Skin: Negative for pallor, rash and wound. Neurological: Negative for dizziness, tremors, seizures, syncope, weakness, light-headedness, numbness and headaches. Balance concerns Psychiatric/Behavioral: Negative for agitation, behavioral problems, confusion, decreased concentration, dysphoric mood, hallucinations, self-injury, sleep disturbance and suicidal ideas. The patient is not nervous/anxious and is not hyperactive. Hematological: Does not bruise/bleed easily. Endocrine: Negative for cold intolerance, heat intolerance, polydipsia, polyphagia and polyuria. Allergic/Immunologic: Negative for environmental allergies. List of current healthcare providers: Patient Care Team: Nkechi Ghosh DO as PCP - General (Family Medicine) Nkechi Ghosh DO as PCP - ACO [employer] Annual Visit Over the past 2 weeks, how often have you been bothered by any of the following problems? Little interest or pleasure in doing things: Not at all Feeling down, depressed, or hopeless: Not at all Patient Health Questionnaire-2 Score: 0 Alisa Fall Risk History of Falling, Immediate or Within 3 Months: Yes Secondary Diagnosis: Yes Ambulatory Aid: Walks without aid/bedrest/nurse assist Intravenous Therapy/Heparin Lock: No Gait/Transferring: Impaired Mental Status: Oriented to own ability Cuellar Fall Risk Score: 60 Health Risk Assessment Form Do you need help eating, bathing, using the toilet, dressing, or getting around your home?: No Can you prepare your own meals?: Yes Can you do your own housework without help?: Yes Can you shop for groceries or clothes without help?: Yes Do you exercise for about 20 minutes 3 or more days a week?: Yes How confident are you that you can control and manage most of your health problems?: Very confident Can you mange your money, credit cards and accounts, pay bills and taxes?: Yes Cognitive Screening Self Assessment: No overt cognitive deficiency is apparent by direct observation Three Word Registration: DaughterJelena [place] Clock Drawing: Normal Clock - 2 Three Word Recall: All 3 words correct - 3 Total Score (0-5 Points): 5 Objective : BP 110/80 Pulse 52 Ht 5' 7 Wt 233 lb SpO2 95% BMI 36.49 kg/m No results found. Physical Exam Vitals and nursing note reviewed. Constitutional: Appearance: Normal appearance. He is normal weight. He is not ill-appearing. HENT: Head: Normocephalic and atraumatic. Right Ear: Tympanic membrane, ear canal and external ear normal. Left Ear: Tympanic membrane, ear canal and external ear normal. Ears: Comments: Bilateral hearing aides Nose: Nose normal. Mouth/Throat: Mouth: Mucous membranes are moist. Pharynx: Oropharynx is clear. No oropharyngeal exudate or posterior oropharyngeal erythema. Eyes: Extraocular Movements: Extraocular movements intact. Conjunctiva/sclera: Conjunctivae normal. Pupils: Pupils are equal, round, and reactive to light. Comments: Bilateral artificial lenses Neck: Vascular: No carotid bruit. Cardiovascular: Rate and Rhythm: Normal rate and regular rhythm. Pulses: Normal pulses. Dorsalis pedis pulses are 2+ on the right side and 2+ on the left side. Posterior tibial pulses are 2+ on the right side and 2+ on the left side. Heart sounds: Normal heart sounds. No murmur heard. No friction rub. No gallop. Pulmonary: Effort: Pulmonary effort is normal. No respiratory distress. Breath sounds: Normal breath sounds. No wheezing. Chest: Chest wall: No tenderness. Abdominal: General: Abdomen is flat. Bowel sounds are normal. There is no distension. Palpations: Abdomen is soft. There is no mass. Tenderness: There is no abdominal tenderness. There is no guarding. Musculoskeletal: General: No swelling, tenderness, deformity or signs of injury. Normal range of motion. Cervical back: Normal range of motion and neck supple. Right lower leg: No edema. Left lower leg: No edema. Left foot: Normal range of motion. No Charcot foot, foot drop or prominent metatarsal heads. Feet: Comments: Left foot inversion with walking Lymphadenopathy: Cervical: No cervical adenopathy. Skin: General: Skin is warm and dry. Capillary Refill: Capillary refill takes less than 2 seconds. Coloration: Skin is not jaundiced. Findings: No bruising, erythema or rash. Neurological: General: No focal deficit present. Mental Status: He is alert and oriented to person, place, and time. Mental status is at baseline. Cranial Nerves: No cranial nerve deficit. Sensory: No sensory deficit. Motor: No weakness. Coordination: Coordination normal. Gait: Gait normal. Psychiatric: Mood and Affect: Mood normal. Behavior: Behavior normal. Thought Content: Thought content normal. Judgment: Judgment normal. Assessment/Plan : Diagnoses and all orders for this visit: Medicare annual wellness visit, subsequent Patient here for annual Medicare Wellness visit. Demographics were updated. Self-assessment was completed. Past medical, family, and social history were updated. The medication list, including supplements being taken, was updated. A list of other current medical providers was established/updated. Time was spent discussing health maintenance issues, ordering proper testing, and a schedule was provided regarding recommended screening. We discussed safety issues and fall risk. Depression screening was completed and addressed. Cognitive function was assessed by direct observation and assessment of ability to perform ADL's and IADL's was done. We also discussed Advanced Directives and code status. The current BMI was provided along with an education packet regarding healthy living and maintenance of a healthy weight. The BMI will continue to be monitored at routine office visits as well. Major risk factors for chronic disease including family history were discussed and a list was provided with the care plan. Screening for cardiovascular condition - Comprehensive metabolic panel; Future - CBC and differential; Future - Lipid panel; Future Screening for lipid disorders - Lipid panel; Future Other hyperlipidemia (CMS/HCC) - Lipid panel; Future Hyperglycemia - Hemoglobin A1c; Future Inversion deformity of left foot - Ambulatory referral to Physical Therapy; Future - Ambulatory referral to Podiatry; Future Pain in left ankle and joints of left foot - Ambulatory referral to Physical Therapy; Future - Ambulatory referral to Podiatry; Future Poor balance - Ambulatory referral to Physical Therapy; Future Obstructive sleep apnea syndrome The symptoms of obstructive sleep apnea have improved, the patient is benefiting from therapy, and should continue use of the PAP device CPAP (continuous positive airway pressure) dependence Encouraged use at least 4 hourse nightly of device Chronic systolic heart failure ([facility]) ERON Elevate ble at rest Essential hypertension ([facility]) Monitor bp at home dialy and bring logs to appts Paroxysmal atrial fibrillation ([facility]) Continue medication Atherosclerosis of [place] coronary artery of [place] heart without angina pectoris ([facility]) Manage lifestyle factors Gastroesophageal reflux disease, unspecified whether esophagitis present Sit upright at least 30 minutes after meals Erectile dysfunction, unspecified erectile dysfunction type managed Sensorineural hearing loss (SNHL) of both ears Wear hearing aides half-way current use of anticoagulant therapy Continue therapy Hyperlipidemia LDL goal <70 ([facility]) Low fat high fiber diet Health Maintenance Topic Date Due Influenza Vaccine (1) 06/07/2024 Colorectal Cancer Screening 04/22/2030 Pneumococcal Vaccine: 65+ Years Completed Advance Care Planning Orders Placed This Encounter Procedures Comprehensive metabolic panel Standing Status: Future Number of Occurrences: 1 Standing Expiration Date: 06/11/2025 Order Specific Question: Print requisition? Answer: No CBC and differential Standing Status: Future Number of Occurrences: 1 Standing Expiration Date: 06/11/2025 Order Specific Question: Print requisition? Answer: No Lipid panel Standing Status: Future Number of Occurrences: 1 Standing Expiration Date: 06/11/2025 Hemoglobin A1c Standing Status: Future Number of Occurrences: 1 Standing Expiration Date: 06/11/2025 Order Specific Question: Print requisition? Answer: No Ambulatory referral to Physical Therapy Standing Status: Future Standing Expiration Date: 12/13/2024 Referral Priority: Routine Referral Type: Rehabilitation - Outpatient Referral Reason: Consult and Treat Referral Location: [facility] Requested Specialty: Physical Therapy Number of Visits Requested: 1 Ambulatory referral to Podiatry Standing Status: Future Standing Expiration Date: 12/13/2024 Referral Priority: Routine Referral Type: Consultation Referral Reason: Specialty Services Required Referred to Provider: hSon Milligan MD Requested Specialty: Podiatry Number of Visits Requested: 1 Yarelis Mcallister NP There are no Patient Instructions on file for this visit. Follow up in about 6 months (around 12/09/2024). documented in this encounter [facility] 03-30-2020 Note PROCEDURE: XR FOOT R T [...] authenticated by: DARRYL GRIDER Date: 2020-03-30 11:04 [facility] Evaluation note Diagnosis Varus deformity, not elsewhere classified, left ankle- Primary Other acquired deformities of right foot Varus deformity, not elsewhere classified, right ankle Instability of left ankle joint Instability of right ankle joint CMT (Gkxhnoj-Cieoo-Rdnya disease) Peroneal muscular atrophy Acquired equinus deformity of left foot Difficulty walking Difficulty in walking [facility] Diagnosis Other acquired deformities of right foot- Primary Varus deformity, not elsewhere classified, left ankle Varus deformity, not elsewhere classified, right ankle Instability of left ankle joint Instability of right ankle joint Acquired equinus deformity of left foot CMT (Vzymrai-Pyemm-Kjpmt disease) Peroneal muscular atrophy [facility] Diagnosis Other acquired deformities of right foot- Primary Varus deformity, not elsewhere classified, left ankle Varus deformity, not elsewhere classified, right ankle Instability of left ankle joint Instability of right ankle joint CMT (Yjmodzy-Paykt-Zdtup disease) Peroneal muscular atrophy Difficulty walking Difficulty in walking Acquired equinus deformity of left foot [facility] Diagnosis Other acquired deformities of right foot- Primary Varus deformity, not elsewhere classified, left ankle Varus deformity, not elsewhere classified, right ankle CMT (Cmdqmzy-Xwllj-Xcdkk disease) Peroneal muscular atrophy Localized edema Edema [facility] Diagnosis Medicare annual wellness visit, subsequent- Primary Screening for cardiovascular condition Screening for other and unspecified cardiovascular conditions Screening for lipid disorders Other hyperlipidemia ([facility]) Hyperglycemia Other abnormal glucose Inversion deformity of left foot Pain in left ankle and joints of left foot Poor balance Obstructive sleep apnea syndrome Obstructive sleep apnea (adult) (pediatric) CPAP (continuous positive airway pressure) dependence Dependence on other enabling machine Chronic systolic heart failure (CMS/HCC) Chronic systolic heart failure Essential hypertension ([facility]/HCC) Unspecified essential hypertension Paroxysmal atrial fibrillation ([facility]/HCC) Atrial fibrillation Atherosclerosis of [place] coronary artery of [place] heart without angina pectoris ([facility]) Gastroesophageal reflux disease, unspecified whether esophagitis present Erectile dysfunction, unspecified erectile dysfunction type Sensorineural hearing loss (SNHL) of both ears half-way current use of anticoagulant therapy Hyperlipidemia LDL goal <70 ([facility]) Other and unspecified hyperlipidemia documented in this encounter [facility]ative)* Consultation (Routine) - Pending Review Specialty Diagnoses / Procedures Referred By Contac t Referred To Contact Podiatry Diagnoses Inversion deformity of left foot Pain in left ankle and joints of left foot Procedures [place] OFFICE/OUTPATIENT [facility] MDM 60 MINUTES Yarelis Mcallister NP [address] [phone] Shon Milligan MD [address] [place] [address] [address] [phone] Referral ID Status Reason Start Date Expiration Date Visits Requested Visits Authorized [id number] Pending Review Specialty Services Required 06/15/2024 12/12/2024 1 1 * Rehabilitation - Outpatient (Routine) - Authorized Specialty Diagnoses / Procedures Referred By Contac t Referred To Contact Physical Therapy Diagnoses Inversion deformity of left foot Pain in left ankle and joints of left foot Poor balance Procedures [place] OFFICE/OUTPATIENT [facility] MDM 60 MINUTES Yarelis Mcallister NP [address] [phone] [facility] [address] [place], [place] [phone] Referral ID Status Reason Start Date Expiration Date Visits Requested Visits Authorized [id number] Authorized Consult and Treat 06/15/2024 12/12/2024 10 10 [facility] Summary Purpose Family History No Family History Records FoundNo Family History Records FoundNo Family History Records FoundNo Family History Records FoundNo Family History Records Found Advance Directives Documents on File Type Date Recorded Patient Engineering Coordinator Expl anation Advance Directives and Living Will Power of Retail Pos Specialist Documents on File Type Date Recorded Patient Engineering Coordinator Expl anation Advance Directives and Living Will 10/02/2018 2018-10-02 Power of meteorology teacher Documents on File Type Date Recorded Patient Engineering Coordinator Expl anation Advance Directives and Living Will 10/02/2018 2018-10-02 Power of meteorology teacher Discharge Instructions * Instructions* Tigist Ramírez RN [...] section and content) DATE CREATED AUTHOR 04/29/2020 Bhargavi Aron [facility] DATE CREATED AUTHOR AUTHOR'S ORGANIZ ATION 03/16/2021 [facility] DATE CREATED AUTHOR AUTHOR'S ORGANIZ ATION 03/17/2021 [facility] DATE CREATED AUTHOR AUTHOR'S ORGANIZ ATION 06/23/2024 [facility] DATE CREATED AUTHOR AUTHOR'S ORGANIZ ATION 09/18/2024 [facility] dical Specialists EPIC Reason for Visit (unrecogniz ed section and content) Status Reason Specialty Diagnoses / Procedures Referre d By Contact Referred To Contact Diagnoses Encounter for screening for malignant neoplasm of colon SCREENING, HX POLYPS Procedures [place] COLON CA SCRN NOT HI RSK IND [place] COLONOSCOPY FLX DX W/COLLJ SPEC WHEN PFRMD COLORECTAL CANCER SCREENING, NOT HIGH RISK Kena Corey DO [address] [place] [address] 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 Had surgery on right foot. Pt relates bottom of foot hurts when walking, pt's relates numbness in left foot. Walks on outsides of feet. Ongoing for a while. Specialty Diagnoses / Procedures Referred By Jaycob t Referred To Contact Podiatry Diagnoses Other acquired deformities of right foot Other acquired deformities of left foot custom bracing shoes/inserts Procedures [place] OFFICE/OUTPATIENT [facility] 60 MINUTES Shon Milligan MD [address] [place] [address] [place] [address] [facility] [address] [place] [address] Referral ID Status Reason Start Date Expiration Date V isits Requested Visits Authorized [id number] Closed Specialty Services Required 06/24/2024 12/21/2024 1 1 Reason Comments Casting For Braces Or Orthotics Pt prese nts today with this spouse for casting/scanning for [place] braces BLSS: 9EEEE Reason Onset Date Comments Advice Only 08/10/2024 [facility] Reason Onset Date Comments Advice Only 08/26/2024 Reason Comments [facility]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 SS: 9EEEE. Reason Comments Follow-up Established pt prese nts today for 3 week ricthie brace checkup, pt states left ankle will be swollen after taking off the brace. States it takes 45 minutes for the swelling to go down after. SS: [id number] Reason Comments Medicare Annual Wellness Visit Subsequen t Care Teams (unrecognized sec tion and content) Para Educator Relationship Specialty Start Date End Date Nkechi Ghosh DO [address] [place], [place] [phone] PCP - General Family Medicine 02/12/23 Para Educator Relationship Specialty Start Date End Date Nkechi Ghosh DO [address] [place] [address] PCP - General Family Medicine 02/12/23 Yarelis Mcallister, HEEL COMPRESSOR [address] [place] [address] PCP - ACO Reach 07/07/24 Para Educator Relationship Specialty Start Date End Date Nkechi Ghosh DO [address] [place] [address] PCP - General Family Medicine 02/12/23 Yarelis Mcallister, HEEL COMPRESSOR [address] [place], [place] [phone] PCP - ACO Reach 07/07/24 Para Educator Relationship Specialty Start Date End Date Nkechi Gohsh DO [address] [place] [address] PCP - General Family Medicine 02/12/23 Yarelis Mcallister, HEEL COMPRESSOR [address] [place] [address] PCP - ACO Reach 07/07/24 Para Educator Relationship Specialty Start Date End Date Nkechi Ghosh DO [address] [place] [address] PCP - General Family Medicine 02/12/23 Yarelis Mcallister, HEEL COMPRESSOR [address] [place] [address] PCP - ACO Reach 07/07/24 Para Educator Relationship Specialty Start Date End Date Nkechi Ghosh DO [address] [place] [address] PCP - General Family Medicine 02/12/23 Yarelis Mcallister, HEEL COMPRESSOR [address] [place] [address] PCP - ACO Reach 07/07/24 Para Educator Relationship Specialty Start Date End Date Nkechi Ghosh DO [address] [place] [address] PCP - General Family Medicine 02/12/23 Yarelis Mcallister, HEEL COMPRESSOR [address] [place] [address] PCP - ACO Reach 07/07/24 Para Educator Relationship Specialty Start Date End Date Nkechi Ghosh DO [address] [place] [address] PCP - General Family Medicine 02/12/23 Yarelis Mcallister, HEEL COMPRESSOR [address] [place] [address] PCP - ACO Reach 07/07/24 Para Educator Relationship Specialty Start Date End Date Nkechi Ghosh DO [address] [place] [address] PCP - General Family Medicine 02/12/23 Nkechi Ghosh DO [address] [place], [place] [phone] PCP - ACO Reach 12/06/23 FOR RECORDS PERTAINING TO PATIENTS WHO ARE [...] BE BASED ON THE PRIMARY CLINICAL RECORDS. [facility] [employer] [facility]. provides no warranty or guarantee of the accuracy or completeness of information in this document.
== END 2024-12-01 10:58 | disposition home or self-care (01) ==
LOC: WC 10:57
PROVIDERS: Visit Provider Physician Assistant
DX: M79.671 Pain in right foot (principal); L97.412 Non-pressure chronic ulcer of right heel and midfoot with fat layer exposed
CPT/HCPCS: 11043; 73630

== ENCOUNTER 2024-12-16 15:12 | Outpatient (OUT) | payer MEDICARE, OTHER, SELFPAY | END 2024-12-16 15:13 | disposition home or self-care (01) | LOC: WC 15:12 | PROVIDERS: Visit Provider Physician Assistant | DX: L97.412 Non-pressure chronic ulcer of right heel and midfoot with fat layer exposed (principal) | CPT/HCPCS: 11042 ==

== ENCOUNTER 2025-07-19 10:06 | Outpatient (OUT) | payer MEDICARE, OTHER, SELFPAY ==
--- OUTSIDE RECORDS SUMMARY | 2025-07-19 10:10 | XMS_ITS | Clinical Summary ---
Author Organization [facility] Address [address] [place] [address] Care Team Providers Care Cell Operation Supervisor Name Role Phone Pranav Calvo DO Primary Care Provider [phone] Majo Mcallister STRATEGIC PLANNING ANALYST Unavailable [phone] Allergies Active Allergy Reactions Criticality Noted Date Comments Lisinopril 11/24/2019 Other Reaction(s): dry cough, Other (See Comments) cough Medications zinc gluconate 50 MG tablet Take 50 mg by mouth in the morning. Active tadalafil (Cialis) 20 MG tablet 1 tablet Orally for 30 day(s) Active sacubitril-vals manolo (Entresto) 97-103 MG tablet every 12 (twelve) hours. Active melatonin 5 MG tablet Take 5 mg by mouth in the morning. Active Lavender Oil oil as directed Active furosemide (Lasix) 40 MG tablet 1 (one) time each day at the same time. Active atorvastatin (Lipitor) 20 MG tablet Take 20 mg by mouth Daily Active apixaban (Eliquis) 5 MG tablet every 12 (twelve) hours. Active cholecalciferol (Vitamin D-3) 25 MCG (1000 UT) capsule 1 capsule 1 (one) time each day at the same time. Active carvedilol (Coreg) 3.125 MG tablet every 12 (twelve) hours. Active coenzyme Q-10 50 MG capsule Take by mouth. Active Active Problems Problem Noted Date Diagnosed Date Chronic ulcer of right heel with fat layer expos ed 06/10/2025 ED (erectile dysfunction) 11/15/2023 senior living current use of anticoagulant therapy 0 11/15/2023 Atherosclerotic heart diseas e of [place] coronary artery without angina pectoris 11/15/2023 CPAP (continuous positive airway pressure) depen dence 05/15/2023 Essential hypertension 05/15/2023 Gastroesophageal reflux disease 05/15/2023 Hyperlipidemia LDL goal <70 05/15/2023 Obstructive sleep apnea syndrome 05/15/2023 Chronic systolic heart failure 09/02/2019 Overview (05/15/2023): Last Assessment & Plan: -NYHA Ia, NICM tachy mediated -ct gdmt: coreg 3.125mg bid, entresto 97-103, lasix 40mg -euvolemic on exam, no LE edema/JVD/orthopnea Paroxysmal atrial fibrillation 10/23/2017 Overview (05/15/2023): Last Assessment & Plan: - [id number] 3 -Continue Eliquis 5 mg twice daily -He is in sinus rhythm, no AAD -S/p PVI with CTI 12/2020 Resolved Problems Problem Noted Date Diagnosed Date Resolved Date Unspecified open wound, righ t foot, initial encounter 06/10/2025 06/17/2025 Bilateral pseudophakia 11/15/202306/15 Sensorineural hearing loss ( SNHL) of both ears 11/15/2023 06/17/2025 Regular astigmatism 11/15/2023 06/15/20 24 Presence of intraocular lens 11/15/2023 06/15/2024 Presbyopia 11/15/2023 06/15/2024 Pain in left knee 11/15/2023 06/15/2024 Nuclear sclerotic cataract 11/15/2023 0 06/15/2024 Myopia 11/15/2023 06/15/2024 Low back pain 11/15/2023 06/15/2024 Encounter for fitting and ad justment of hearing aid 11/15/2023 06/15/2024 Arteriosclerosis of coronary artery 11/15/2023 11/15/2023 Overview (11/15/2023): Nov 01, 2017 Entered By: ASHTYN HERRERA MD Comment: severe stenosis OM1, mod in midcx,mild in LAD/RCA [id number] rust Anterior corneal pigmentation 11/15/2023 06/15/2024 Obesity 11/15/2023 06/15/2024 Arthritis of knee, left 05/15/2023 08/0 06/2023 Atrial flutter 05/15/2023 05/15/2023 Cardiac arrhythmia 05/15/2023 Cataract of right eye 05/15/20232023 Cavus deformity of foot, acquired 05/15/2023 05/15/2023 Deformity of foot 05/15/2023 05/15/2023 Dependence on other enabling machines and devices 05/15/2023 05/15/2023 DJD (degenerative joint disease) 05/15/2023 06/15/2024 Sleep apnea 05/15/2023 05/15/2023 Overview (05/15/2023): Last Assessment & Plan: - Continue compliance with mask Sleep disorder 05/15/2023 05/15/2023 Unspecified acquired deformi ty of left lower leg 05/15/2023 05/15/2023 Body mass index (BMI) 36.0-36.9, adult 12/14/2022 05/15/2023 Systolic heart failure 09/02/201911/15 Congestive heart failure 10/23/201706/2023 Atrial fibrillation 10/23/2017 11/15/19 24 Overview (11/15/2023): Last Assessment & Plan: - [id number] 3 -Continue Eliquis 5 mg twice daily -He is in sinus rhythm, no AAD -S/p PVI with CTI 12/2020Nov 01, 2017 Entered By: ASHTYN HERRERA MD Comment: flutter-fib, CV Encounters Date Type Department Care Team Description 06/10/2025 2:00 PM EDT Office Visit [facility] [address] [place] [address] Majo Mcallister, JUAN Wellness examination (Primary Dx); Obstructive sleep apnea syndrome; CPAP (continuous positive airway pressure) dependence; Atherosclerosis of [place] coronary artery of [place] heart without angina pectoris ; Chronic systolic heart failure (HCC); Essential hypertension ; Paroxysmal atrial fibrillation (HCC); Gastroesophageal reflux disease, unspecified whether esophagitis present; Erectile dysfunction, unspecified erectile dysfunction type; Chronic ulcer of right heel with fat layer exposed (HCC); senior living current use of anticoagulant therapy; Hyperlipidemia LDL goal <70 ; Other hyperlipidemia ; Screening for lipid disorders; Screening for cardiovascular condition 06/10/2025 Harvesto flowsheet [facility] [address] [place] [address] Majo Mcallister, JUAN 06/10/2025 Travel from Last 3 Months Immunizations Immunization Administration Dates Next Due ABRYSVO - Respiratory syncyt ial virus (RSV), vaccine, bivalent, protein subunit RSV prefusion F, diluent reconstituted, 0.5 mL, PF 07/06/2024 Influenza, High Dose Seasona l, Preservative Free 06/12/2024,06/21/2022,07/14/2021,10/03 Influenza, High-dose Seasona l, Quadrivalent, Preservative Free 06/21/2022,07/14/2021,07/04/2020 Influenza, Seasonal, Quadriv alent, Adjuvanted 07/02/2023 Influenza, Unspecified 07/06/2023,07/10/2022,10/2020 Influenza, injectable, quadr ivalent, preservative free 08/03/2019 Pfizer Purple Cap SARS-CoV-2 Vaccination 07/06/2021,11/24/2020,11/03/2020 Pneumococcal Conjugate PCV 13 10/27/2020, 018 Pneumococcal Polysaccharide PPSV23 10/27/2020, SARS-COV-2 (COVID-19) vaccin e, mRNA, spike protein, LNP, PF, antony-sucrose, 30 mcg/0.3 mL 07/06/2023 SARS-COV-2 (COVID-19) vaccin e, mRNA, spike protein, LNP, bivalent, preservative free, 30 mcg/0.3 mL dose, antony-sucrose formulation 07/24/2022 SARS-CoV-2, Unspecified 12/05/2020 Td (adult), unspecified 01/05/2006 Tdap 04/29/2019 Zoster, Recombinant 09/25/2018, 8,03/26/2018,02/25 Family History Medical History Relation Name Comments Prostate cancer Father No Known Problems Maternal Grandfather No Known Problems Maternal Grandmother Heart disease Mother Osteoarthritis Mother Stroke Mother No Known Problems Paternal Grandfather No Known Problems Paternal Grandmother Hypertension Sibling Osteoarthritis Sibling Relation Name Status Comments Father Maternal Grandfather Maternal Grandmother Mother Paternal Grandfather Paternal Grandmother Sibling Social History Tobacco Use Types Packs/Day Years Used Date Smoking Tobacco: Former Cigarettes Q uit: 2005 Smokeless Tobacco: Never Tobacco Cessation:Counseling Given: Not Answered Alcohol Use Standard Drinks/Week Comments Yes 0 (1 standard drink = 0.6 oz pur e alcohol) AUDIT-C Answer Date Recorded Q1: How often do you have a drink containing alc ohol? 2-4 times a month 11/14/2023 Average Number of Drinks Not on file 024 Q3: How often do you have si x or more drinks on one occasion? Never 11/14/2023 PHQ-2 Answer Date Recorded Patient Health Questionnaire-2 Score 0 06/10/2025 Sex and Gender Information Value Date Recorded Sex Assigned at Not on file Legal Sex Male 8:14 PM EDT Gender Identity Not on file Sexual Orientation Not on file Last Filed Vital Signs Vital Sign Reading Time Taken Comments Blood Pressure 106/62 06/10/2025 1:47 PM EDT Pulse 51 06/10/2025 1:47 PM EDT Temperature - - Respiratory Rate - - Oxygen Saturation 94% 06/10/2025 1:47 PM EDT Inhaled Oxygen Concentration - - Weight 92.1 kg (203 lb) 06/10/2025 1:47 PM EDT Height 170.2 cm (5' 7 ) 06/10/2025 1:47 PM EDT Body Mass Index 31.79 06/10/2025 1:47 PM EDT Plan of Treatment Upcoming Encounters Date Type Department Care Team (Late st Contact Info) Description 12/08/2025 1:30 PM EST Office Visit [facility] [place] [address] [place] [address] Majo Mcallister, STRATEGIC PLANNING ANALYST [address] [place] [address] Health Maintenance Due Date Last Done Comments CT Colonography 1952 FIT-DNA 1952 FIT 1950 FOBT 1950 Sigmoidoscopy 1950 Influenza Vaccine (#1) 2025 4, 07/06/2023, 07/02/2023, Additional history exists Colonoscopy 04/22/2030 04/22/2020, 04/06, 04/22/2015, Additional history exists Colorectal Cancer Screening 04/22/2030 Pneumococcal Vaccine: 65+ Years Completed 10/27/2020, 10/27/2020, 04/29/2019, Additional history exists Procedures Procedure Name Priority Date/Time Associated Diagnosis Comments LIPID PANEL Routine 07/16/2025 10:06 AM EDT Screening for cardiovascular condition Screening for lipid disorders Other hyperlipidemia COLONOSCOPY Routine 04/22/2020 12:00 PM EDT from Last 3 Months or Most Recently Relevant to Health Maintenance Results * Lipid panel (07/16/2025 10:06 AM EDT) Blood Venous blood specimen / Unknown us Majo Mcallister NP LAB BLOOD ORDERABLES Final Result [facility] * Colonoscopy (04/22/2020 12:00 PM EDT) Anatomical Region Laterality Modality Endoscopy 04/22/2020 12:0 0 PM EDT Narrative 04/22/2020 12:00 PM EDT PERFORMED AT [facility] LOCATION:[id number] no polyps Procedure Note CONVERSION, GENERIC - 02/20/2023 PERFORMED AT [facility] LOCATION:[id number] no polyps us Pranav Calvo DO ENDOSCOPY PROCEDURE ORDERAB LES Final Result from Last 3 Months or Most Recently Relevant to Health Maintenance Insurance MEDICARE [facility] MEDICARE SUPPLEMENT Advance Directives Documents on File Type Date Recorded Patient Roll Changer Expl anation Advance Directives and Living Will 10/02/2018 2018-10-02 Power of associate attorney Care Teams Cell Operation Supervisor Relationship Specialty Start Date End Date Pranav Calvo DO [address] [place] [address] PCP - General Family Medicine 02/12/23 Majo Mcallister, STRATEGIC PLANNING ANALYST [address] [place], [place] [phone] PCP - ACO Reach 07/07/24
--- OUTSIDE RECORDS SUMMARY | 2025-07-19 10:10 | XMS_ITS | Encounter Summary ---
Author Organization [facility] Address [address] [place] [place] [address] Care Team Providers Care Clinic Clerk Name Role Phone Pranav Calvo DO Primary Care Provider [phone] Majo Mcallister WIRELESS SALES MANAGER Unavailable [phone] Encounter Details Date Type Department Care Team (Late Contact Info) Description 08/10/2024 Abstract [facility] [address] [facility] [place] [id number] Amilcar Lindsay DPM [address] [place] [address] Social History Tobacco Use Types Packs/Day Years Used Date Smoking Tobacco: Former Cigarettes Q uit: 2006 Smokeless Tobacco: Never Alcohol Use Standard Drinks/Week Comments Yes 0 [...] Date Recorded Patient Health Questionnaire-2 Score 0 06/11/2024 Sex and Gender Information Value Date Recorded Sex Assigned at Not on file Legal Sex Male 8:14 PM EDT Gender Identity Not on file Sexual Orientation Not on file documented as of this encounter Plan of Treatment Upcoming Encounters Date Type Department Care Team (Late Contact Info) Description 12/08/2025 1:30 PM EST Office Visit [facility] [address] [place] [address] Majo Mcallister, JUAN [address] [place] [address] documented as of this encounter Visit Diagnoses Not on filedocumented in this encounter Additional Health Concerns Assessment Noted Time PHQ-9 Depression Total Score: 3 05/15/20 23 1:00 PM EDT documented as of this encounter Care Teams Clinic Clerk Relationship Specialty Start Date End Date Pranav Calvo DO [address] [place], [place] [phone] PCP - General Family Medicine 02/12/23 Majo Mcallister, WIRELESS SALES MANAGER [address] [place], [place] [phone] PCP - ACO Reach 07/07/24 documented as of this encounter
--- OUTSIDE RECORDS SUMMARY | 2025-07-19 10:10 | XMS_ITS | Clinical Summary ---
Author Organization [facility] Address [address], [address] [place] [address] Care Team Providers Care T[employer] Stripper Name Role Phone Umesh, Pranav Williamson DO Primary Care Provider [phone] Allergies Active Allergy Reactions Criticality Noted Date Comments Lisinopril Other (See Comments) 11/24/2019 cough Medications sacubitril-valsa rtan (ENTRESTO) 97-103 MG per tablet Take 1 tablet by mouth 2 times daily Active carvedilol (COREG) 3.125 MG tablet Take 3.125 mg by mouth 2 times daily (with meals) Active furosemide (LASIX) 40 MG tablet Take 40 mg by mouth 2 times daily Active atorvastatin (LIPITOR) 40 MG tablet Take 20 mg by mouth daily Active amiodarone (PACERONE) 100 MG tablet Take 100 mg by mouth daily Active apixaban (ELIQUIS) 5 MG TABS tablet Take by mouth 2 times daily Active vitamin C (ASCORBIC ACID) 500 MG tablet Take 500 mg by mouth daily Active aspirin 81 MG tablet Take 81 mg by mouth daily Take 1/2 tablet Active pantoprazole (PROTONIX) 20 MG tablet Take 20 mg by mouth daily Active zinc gluconate 50 MG tablet Take 50 mg by mouth daily Active Coenzyme Q10 (CO Q10 PO) Take by mouth daily Active melatonin 5 MG TABS tablet Take 5 mg by mouth daily Active LAVENDER OIL PO Take by mouth Active tadalafil (CIALIS) 20 MG tablet Take 20 mg by mouth daily Active Cholecalciferol (VITAMIN D3 PO) Take by mouth Active Active Problems No known active problems Family History Medical History Relation Name Comments Prostate Cancer Father Heart Disease Mother Stroke Mother Relation Name Status Comments Father Maternal Grandfather Maternal Grandmother Mother Paternal Grandfather Paternal Grandmother Social History Tobacco Use Types Packs/Day Years Used Date Smoking Tobacco: Former Cigarettes Q uit: 11/24/2005 Smokeless Tobacco: Never Tobacco Cessation:Counseling Given: Yes Social Connection and Isolation Panel Answer Date Recorded Frequency of Communication with Friends and Fami ly Not on file 11/27/2019 Frequency of Social Gatherings with Friends and Family Not on file 11/27/2019 Attends Baptism Services Not on file 11/27 Active Member of Clubs or Organizations Not on f ile 11/27/2019 Attends Club or Organization Meetings Not on madelin e 11/27/2019 Marital Status 11/27/2019 Sex and Gender Information Value Date Recorded Sex Assigned at Not on file Legal Sex Male 6:42 PM EST Gender Identity Not on file Sexual Orientation Not on file Last Filed Vital Signs Vital Sign Reading Time Taken Comments Blood Pressure 128/76 04/22/2020 11:28 AM EDT Pulse 57 04/22/2020 11:28 AM EDT Temperature 36.9 C (98.5 F) 04/22/2020 10:58 AM EDT Respiratory Rate 16 04/22/2020 11:28 AM EDT Oxygen Saturation 97% 04/22/2020 11:28 AM EDT Inhaled Oxygen Concentration - - Weight 103.4 kg (228 lb) 04/22/2020 9:02 AM EDT Height 171.5 cm (5' 7.5 ) 04/22/2020 9:02 AM EDT Body Mass Index 35.18 04/22/2020 9:02 AM EDT Plan of Treatment Health Maintenance Due Date Last Done Comments Lipids 1962 Depression Screen 1964 Hepatitis C screen 1970 DTaP/Tdap/Td vaccine (1 - Tdap) 1971 FIT/FOBT: Average risk 1997 Fecal-DNA (Cologuard): Malone ge risk 1997 Sigmoidoscopy/CT colonography 1997 Pneumococcal 50+ years Vacci ne (1 of 1 - PCV) 2002 Shingles vaccine (1 of 2) 2002 Respiratory Syncytial Virus (RSV) or age 60 yrs+ (1 - Risk 60-74 years 1-dose series) 2012 AAA screen 2017 Annual Wellness Visit (Medicare) 04/01/2025 Flu vaccine (#1) 05/07/2025 COVID-19 Vaccine (1 - 2023-2 5 season) 2025 Colonoscopy 04/22/2030 04/22/2020, 04/22/2020 Colorectal Cancer Screen 04/22/2030 Hepatitis A vaccine Aged Out No longe r eligible based on patient's age to complete this topic Hepatitis B vaccine Aged Out No longe r eligible based on patient's age to complete this topic Hib vaccine Aged Out No longer eligi ble based on patient's age to complete this topic Meningococcal (ACWY) vaccine Aged Out No longer eligible based on patient's age to complete this topic Meningococcal B vaccine Aged Out No l onger eligible based on patient's age to complete this topic Polio vaccine Aged Out No longer elig ible based on patient's age to complete this topic Procedures Procedure Name Priority Date/Time Associated Diagnosis Comments COLONOSCOPY PROCEDURE Routine 04/22/2020 8:37 AM EDT from Last 3 Months or Most Recently Relevant to Health Maintenance Results * Colonoscopy (04/22/2020 8:37 AM EDT) Narrative Manuel, User - 04/22/2020 8:37 AM EDT No dictation us Kena Jiménez I, ENDOSCOPY ORDERABLES Final Result from Last 3 Months or Most Recently Relevant to Health Maintenance Insurance MEDICARE [employer] Care Teams Tire Stripper Relationship Specialty Start Date End Date Pranav Calvo DO [address] [place] [id number] PCP - General Family Medicine 11/27/19
--- OUTSIDE RECORDS SUMMARY | 2025-07-19 10:12 | XMS_ITS | CCD ---
Author Organization [facility] Inform ion [facility] Care Team Providers Care Organizational Consultant Name Role Phone Nkechi Ghosh Primary Care Provider [phone] BROOKS GAUTAM Admitting Unavailable BROOKS GAUTAM Attending Unavailable UNKNOWN, PROVIDER Primary Care Unavailable UNKNOWN, PROVIDER Referring Unavailable BROOKS GAUTAM Surgeon Unavailable [place] Procedure Practitioner Unavailab le MISC, DR SHEPHERD Admitting Unavailable MISC, DR SHEPHERD Attending Unavailable MISC, DR SHEPHERD Consulting Unavailable MISC, DR SHEPHERD Primary Care Unavailable ALIVIA, KIRTI Admitting Unavailable WEST, DR DARRYL Kothari Consulting Unavailable ALIVIA, KIRTI Attending Unavailable ALIVIA, KIRTI Consulting Unavailable MOUKARBEL, DR JOHNSON Attending Unavailable [...] Attending Unavailable MOUKARBEL, DR JOHNSON Consulting Unavailable [place] Consulting Unavailable MISC, DR SHEPHERD Attending Unavailable MISC, DR SHEPHERD Consulting Unavailable MISC, DR SHEPHERD Primary Care Unavailable MISC, DR SHEPHERD Admitting Unavailable MOUKARBEL, DR JOHNSON Admitting Unavailable MOUKARBEL, DR JOHNSON Attending Unavailable MOUKARBEL, DR JOHNSON Consulting Unavailable Nkechi Ghosh DO Primary Care Provider Yarelis Mcallister NP Unavailable [phone] Nkechi Ghosh DO Unavailable [phone] Nkechi Ghosh DO Primary Care Provider [phone] KIRTI BROOKE Referring Unavailable NKECHI GHOSH Primary Care Unavailable YARELIS MCALLISTER Attending Unavailable YARELIS MCALLISTER Attending Unavailable AMILCAR LINDSAY Attending Unavailable SHON MILLIGAN Referring Unavailable AMILCAR LINDSAY Attending Unavailable NKECHI GHOSH Referring Unavailable AMILCAR LINDSAY Attending Unavailable AMILCAR LINDSAY Attending Unavailable ELIZABETH CRAVEN Attending Unavailable Allergies Allergy Classification Reported Allergen(s) Allergy Type Date of Onset Reaction(s) Facility Amino Acids (2 sources) Amino Acids Drug Allergy 8 [facility] Repository (4 sources) Lisinopril; Translations: [LISINOPRIL] Drug Allergy 0 Other (See Comments) [place], [place] (20 sources) Lisinopril Allergy to substance 0 [facility] [employer] Work Phone: Medications Current Medications Medication Drug Class(es) Dates Sig (Normalized) Sig (Original) amiodarone hydrochloride 100 mg oral tablet (3 sources) Antiarrhythmic take 1 tablet by mouth once daily amiodarone (PACERONE) 100 MG tablet Take 100 mg by mouth daily Active apixaban 5 mg oral tablet (20 sources) Factor Xa Inhibitor apixaban (El iquis) 5 MG tablet every 12 (twelve) hours. Active apixaban (ELIQUI S) 5 MG TABS tablet Take by mouth 2 times daily Active ascorbic acid 500 mg chewable tablet (3 sources) Vitamin C take 1 tablet by tyrel th once daily vitamin C (ASCORBIC ACID) 500 MG tablet Take 500 mg by mouth daily Active take 1 tablet by mouth once brenda y vitamin C (ASCORBIC ACID) 500 MG tablet Take 500 mg by mouth daily 0 Active aspirin 81 mg oral tablet (3 sources) Platelet Aggregation Inhibitor, Nonsteroidal Anti-inflammatory Drug take 0.5 tablet by mouth once daily aspirin 81 MG tablet Take 81 mg by mouth daily Take 1/2 tablet Active atorvastatin 20 mg oral tablet (20 sources) HMG-CoA Reductase Inhibitor take 1 tablet by mouth once daily atorvastatin (Lipitor) 20 MG tablet Take 20 mg by mouth Daily Active atorvastatin (LI PITOR) 40 MG tablet Take 20 mg by mouth daily Active atorvastatin (Li pitor) 40 MG tablet 1 (one) time each day at the same time. 0 Active calcium chloride 0.0014 meq/ml / potassium chloride 0.004 meq/ml / sodium chloride 0.103 meq/ml / sodium lactate 0.028 meq/ml injectable solution (1 source) Start: 04-22-2020 lactated ringe rs infusion carvedilol 3.125 mg oral tablet (20 sources) alpha-Adrenergic Melissa, beta-Adrenergic Melissa carvedilol (Coreg) 3.125 MG tablet every 12 (twelve) hours. Active take 1 tablet by tyrel th twice daily at mealtime carvedilol (COREG) 3.125 MG tablet Take 3.125 mg by mouth 2 times daily (with meals) Active cholecalciferol 0.025 mg ora l capsule (20 sources) Vitamin D cholecalciferol (Vitamin D-3) 25 MCG (1000 UT) capsule 1 capsule 1 (one) time each day at the same time. Active Cholecalciferol (VITAMIN D3 PO) Take by mouth Active Cholecalciferol (VITAMIN D3 PO) Take by mouth 0 Active Coenzyme Q10 (CO Q10 PO) (3 sources) Coenzyme Q10 (CO Q10 PO) Take by mouth daily Active Coenzyme Q10 (CO Q10 PO) Take by mouth daily 0 Active furosemide 40 mg oral tablet (20 sources) Loop Diuretic furosemide (Lasi x) 40 MG tablet 1 (one) time each day at the same time. Active take 1 tablet by mouth twice aldo ly furosemide (LASIX) 40 MG tablet Take 40 mg by mouth 2 times daily Active Lavender Oil oil (20 sources) Lavender Oil oil as directed Active Lavender Oil oil as directed 0 Active LAVENDER OIL PO (3 sources) LAVENDER OIL PO Take by mouth Active LAVENDER OIL PO Take by mouth 0 Active melatonin 5 mg oral tablet (20 sources) take 1 tablet by mouth in the morning melatonin 5 MG tablet Take 5 mg by mouth in the morning. Active pantoprazole 20 mg delayed release oral tablet (3 sources) Proton Pump Inhibitor take 1 tablet by mouth once daily pantoprazole (PROTONIX) 20 MG tablet Take 20 mg by mouth daily Active sacubitril 97 mg / valsartan 103 mg oral tablet (20 sources) Angiotensin 2 Receptor Melissa sacubitril-valsartan (Entresto) 97-103 MG tablet every 12 (twelve) hours. Active tadalafil 20 mg oral tablet (20 sources) Phosphodiesterase 5 Inhibitor tadalafil (Cialis) 20 MG tablet 1 tablet Orally for 30 day(s) Active ubidecarenone 50 mg oral capsule (20 sources) coenzyme Q-10 50 MG capsule Take by mouth. Active zinc gluconate 50 mg oral tablet (20 sources) take 1 tablet by mouth in the morning zinc gluconate 50 MG tablet Take 50 mg by mouth in the morning. Active Problems Active Problems Problem Classification Problem Date Documented Date Episodic/Chronic Cardiac dysrhythmias (20 sources) Unspecified atrial fibrillation; Translations: [Paroxysmal atrial fibrillation] Onset: 10-23-2017 Resolved: 11-15-2023 Chronic Chronic ulcer of skin (6 sources) Non-pressure chronic ulcer of other part of right foot with unspecified severity; Translations: [Non-pressure chronic ulcer of right heel and midfoot with fat layer exposed] Onset: 04-01-2025 Chronic Congestive heart failure; nonhypertensive (20 sources) Chronic systolic (congestive) heart failure; Translations: [Chronic systolic heart failure] Onset: 10-23-2017 Resolved: 11-15-2023 Chronic Coronary atherosclerosis and other heart disease (20 sources) Coronary atherosclerosis; Translations: [Atherosclerotic heart disease of upper [place] coronary artery without angina pectoris] Onset: 11-15-2023 Resolved: 11-15-2023 11-15-2023 Chronic Diabetes mellitus with complications (4 sources) Type 2 diabetes mellitus with other diabetic neurological complication; Translations: [Type 2 diabetes mellitus with foot ulcer] Onset: 04-01-2025 Chronic Disorders of lipid metabolism (20 sources) Hyperlipidemia; Translations: [Hyperlipidemia, unspecified] Onset: 05-15-2023 05-15-2023 Chronic Esophageal disorders (20 sources) Gastroesophageal reflux disease; Translations: [Gastro-esophageal reflux disease without esophagitis] Onset: 05-15-2023 05-15-2023 Chronic Essential hypertension (20 sources) Essential hypertension; Translations: [Essential (primary) hypertension] Onset: 05-15-2023 05-15-2023 Chronic Other aftercare (20 sources) Long-term current use of anticoagulant; Translations: [ferry terminal agent (current) use of anticoagulants] Onset: 11-15-2023 11-15-2023 Episodic Other connective tissue disease (6 sources) Pain in right foot; Translations: [PAIN IN RIGHT FOOT] Onset: 03-30-2020 Episodic Other male genital disorders (20 sources) Male erectile dysfunction, unspecified; Translations: [Impotence [...] Translations: [Other instability, right ankle] 07-15-2024 Episodic Other screening for suspected conditions (not mental disorders or infectious disease) (8 sources) Patient encounter status; Translations: [Encounter for screening for cardiovascular disorders] 06-15-2024 Episodic Residual codes; unclassified (20 sources) Dependence on continuous positive airway pressure ventilation; Translations: [Dependence on other enabling machines and devices] Onset: 05-15-2023 05-15-2023 Chronic Residual codes; unclassified (20 sources) Obstructive sleep apnea syndrome; Translations: [Obstructive sleep apnea (adult) (pediatric)] Onset: 05-15-2023 05-15-2023 Chronic Residual codes; unclassified (2 sources) Localized edema; Translations: [Localized edema] 09-15-2024 Episodic Past or Other Problems Problem Classification Problem Date Documented Date Episodic/Chronic Acquired foot deformities (20 sources) Acquired cavus deformity of foot; Translations: [Other acquired deformities of unspecified foot] Onset: 05-15-2023 Resolved: 05-15-2023 05-15-2023 Episodic Blindness and vision defects (20 sources) Regular [...] COMMUNICABL DZ] Onset: 09-23-2020 Episodic Mood disorders (20 sources) Mood disorders Onset: 05-15-2023 05-15-2023 Open wounds of extremities (2 sources) Open wound of right foot; Translations: [Unspecified open wound, right foot, initial encounter] Onset: 06-10-2025 Resolved: 06-17-2025 06-17-2025 Episodic Osteoarthritis (20 sources) Osteoarthritis; Translations: [Unspecified osteoarthritis, unspecified site] Onset: 05-15-2023 Resolved: 06-15-2024 05-15-2023 Chronic Other acquired deformities (20 sources) Deformity of foot; Translations: [Unspecified acquired deformity of unspecified lower leg] Onset: 05-15-2023 Resolved: 05-15-2023 05-15-2023 Episodic Other acquired deformities (20 sources) Acquired deformity of left lower leg; Translations: [Unspecified acquired deformity of left lower leg] Onset: 05-15-2023 Resolved: 05-15-2023 05-15-2023 Episodic Other aftercare (5 sources) Other roasterman (current) drug therapy; Translations: [OTH SHELTER CURRENT DRUG THERAPY] Onset: 09-07-2020 Episodic Other connective tissue disease (1 source) Arthrodesis status; Translations: [ARTHRODESIS STATUS] Onset: 04-03-2020 Episodic Other ear and sense organ disorders (20 sources) Sensorineural hearing loss, bilateral; Translations: [Sensorineural hearing loss, bilateral] Onset: 11-15-2023 Resolved: 06-17-2025 11-15-2023 Chronic Other ear and sense organ disorders (20 sources) Device status; Translations: [Encounter for fitting and adjustment of hearing aid] Onset: 11-15-2023 Resolved: 06-15-2024 06-15-2024 Episodic Other eye disorders (20 sources) Anterior corneal pigmentation; Translations: [Anterior corneal pigmentations, unspecified eye] Onset: 11-15-2023 Resolved: 06-15-2024 06-15-2024 Episodic Other nervous system disorders (2 sources) Poor balance; Translations: [Other abnormalities of gait and mobility] 06-15-2024 Episodic Other non-traumatic joint disorders (20 sources) Pain in left knee; Translations: [Pain in joint, lower leg] Onset: 11-15-2023 Resolved: 06-15-2024 06-15-2024 Episodic Other non-traumatic joint disorders (2 sources) Arthralgia of the ankle and/or foot; Translations: [Pain in left ankle and joints of left foot] 06-15-2024 Episodic Other nutritional; endocrine; and metabolic disorders (20 sources) Body mass index 30+ - obesity; Translations: [Body mass index (BMI) 36.0-36.9, adult] Onset: 12-14-2022 Resolved: 05-15-2023 05-15-2023 Chronic Other nutritional; endocrine; and metabolic disorders (20 sources) Obesity; Translations: [Obesity, unspecified] Onset: 11-15-2023 Resolved: 06-15-2024 06-15-2024 Chronic Residual codes; unclassified (20 sources) Dependence on enabling machine or device; Translations: [Dependence on other enabling machines and devices] Onset: 05-15-2023 Resolved: 05-15-2023 05-15-2023 Chronic Residual codes; unclassified (20 sources) Sleep apnea; Translations: [Sleep apnea, unspecified] Onset: 05-15-2023 Resolved: 05-15-2023 05-15-2023 Chronic Residual codes; unclassified (20 sources) Sleep disorder; Translations: [Sleep disorder, unspecified] Onset: 05-15-2023 Resolved: 05-15-2023 05-15-2023 Episodic Spondylosis; intervertebral disc disorders; other back problems (20 sources) Low back pain; Translations: [Low back pain] Onset: 11-15-2023 Resolved: 06-15-2024 06-15-2024 Episodic Results Test Name Value Interpretation Reference Range Facility Office Visiton 07-12-2025 Follow-up visit [id number] Nettie Ramirez 1950 M Date Provider Department Center 07/12/2025 ELIZABETH SHAH Family History Problem Relation Age of Onset Coronary artery disease Mother Heart attack Mother Stroke Mother Family Status - Relation Status Age at Mother Father Level of Service:38069 [place] OFFICE/OUTPATIENT ESTABLISHED MOD MDM 30 MIN Normal [facility] C-Reactive Proteinon 025 CRP High sensitivity method [Mass/Vol] 13.9 mg/L High 0.0 - 5.0 mg/L [facility] CRP [Mass/Vol] 13.9 mg/L High 0.0-5.0 [facility] Comment on above: Performed By: #### C DP, SED, CP, CRP #### [facility] [address] [place] [address] Binding Folder Machine: Darryl Goldberg MD CBC with Auto Differentialon 04-01-2025 Basophils (Bld) [#/Vol] 0.03 10*3/uL [facility] Basophils/100 WBC (Bld) 1 % 0 - 2 % [facility] Eosinophils (Bld) [#/Vol] 0.1 10*3/uL [facility] Eosinophils/100 WBC (Bld) 2 % 1 - 4 % [facility] Erythrocyte distribution width (RBC) [Ratio] 13.4 % 11.8 - 14.4 % [facility] Hematocrit (Bld) [Volume fraction] 42 % 40.7 - 50.3 % [facility] Hemoglobin (Bld) [Mass/Vol] 13.3 g/dL 13.0 - 17.0 g/dL [facility] Immature granulocytes (Bld) [#/Vol] [facility] Immature granulocytes/100 WBC (Bld) 0 % 0 [facility] Lymphocytes/100 WBC (Bld) 28 % 24 - 43 % [facility] Lymphocytes/100 WBC (Bld) 1.86 % [facility] MCH (RBC) [Entitic mass] 30.7 pg 25.2 - 33.5 pg [facility] MCHC (RBC) [Mass/Vol] 31.7 g/dL 28.4 - 34.8 g/dL [facility] MCV (RBC) [Entitic vol] 97 fL 82.6 - 102.9 fL [facility] Monocytes/100 WBC (Bld) 10 % 3 - 12 % [facility] Monocytes/100 WBC (Bld) 0.66 % [facility] Neutrophils/100 WBC (Bld) 59 % 36 - 65 % [facility] Nucleated RBC/100 WBC (Bld) [Ratio] 0 % 0.0 per 100 WBC [facility] Platelet mean volume (Bld) [Entitic vol] 9.6 fL 8.1 - 13.5 fL [facility] Platelets (Bld) [#/Vol] 177 10*3/uL [facility] RBC (Bld) [#/Vol] 4.33 10*6/uL 4.21 - 5.7 7 m/uL [facility] Segmented neutrophils/100 WBC (Bld) 3.9 % [facility] WBC other (Bld) [#/Vol] 6.6 [facility] CBC with Diffon 04-01-2025 Abs. Basophil 0.03 k/uL Normal 0.00-0.20 [facility] Comment on above: Performed By: #### C DP, SED, CP, CRP #### [address] [place] [id number] Binding Folder Machine: Darryl Goldberg MD Abs.Imm.Granulocyte <0.03 Normal 0.00-0.30 [facility] Comment on above: Performed By: #### C DP, SED, CP, CRP #### [address] [place] [address] Binding Folder Machine: Darryl Goldberg MD Abs.Neutrophil (Seg) 3.90 k/uL Normal 1.50-8.10 [facility] Comment on above: Performed By: #### C DP, SED, CP, CRP #### [address] [place] [id number] Binding Folder Machine: Darryl Goldberg MD Basophils/100 WBC (Bld) 1 % Normal 0-2 [facility] Comment on above: Performed By: #### C DP, SED, CP, CRP #### [address] [place] [id number] Binding Folder Machine: Darryl Goldberg MD Eosinophils (Bld) [#/Vol] 0.10 10*3/uL Normal 0.00-0.44 [facility] Comment on above: Performed By: #### C DP, SED, CP, CRP #### [address] [place], [place] [address] Binding Folder Machine: Darryl Goldberg MD Eosinophils/100 WBC (Bld) 2 % Normal 1-4 [facility] Comment on above: Performed By: #### C DP, SED, CP, CRP #### [address] [place], [place] [address] Binding Folder Machine: Darryl Goldberg MD Erythrocyte distribution width (RBC) [Ratio] 13.4 % Normal 11.8-14.4 [facility] Comment on above: Performed By: #### C DP, SED, CP, CRP #### [address] [place], [place] [address] Binding Folder Machine: Darryl Goldberg MD Hematocrit (Bld) [Volume fraction] 42.0 % Normal 40.7-50.3 [facility] Comment on above: Performed By: #### C DP, SED, CP, CRP #### [address] [place], [place] [address] Binding Folder Machine: Darryl Goldberg MD Hemoglobin (Bld) [Mass/Vol] 13.3 g/dL Normal 13.0-17.0 [facility] Comment on above: Performed By: #### C DP, SED, CP, CRP #### [address] [place], [place] [address] Binding Folder Machine: Darryl Goldberg MD Immature granulocytes/100 WBC (Bld) 0 % Normal 0 [facility] Comment on above: Performed By: #### C DP, SED, CP, CRP #### [address] [place], [facility] Binding Folder Machine: Darryl Goldberg MD Lymphocytes (Bld) [#/Vol] 1.86 10*3/uL Normal 1.10-3.70 [facility] Comment on above: Performed By: #### C DP, SED, CP, CRP #### [address] [place], [facility] Binding Folder Machine: Darryl Goldberg MD Lymphocytes/100 WBC (Bld) 28 % Normal 24-43 [facility] Comment on above: Performed By: #### C DP, SED, CP, CRP #### [address] [place], [facility]83 Binding Folder Machine: Darryl Goldberg MD MCH (RBC) [Entitic mass] 30.7 pg Normal 25.2-33.5 [facility] Comment on above: Performed By: #### C DP, SED, CP, CRP #### [address] [place], [facility]83 Binding Folder Machine: Darryl Goldberg MD MCHC (RBC) [Mass/Vol] 31.7 g/dL Normal 28.4-34.8 [facility] Comment on above: Performed By: #### C DP, SED, CP, CRP #### [address] [place], [facility] Binding Folder Machine: Darryl Goldberg MD MCV (RBC) [Entitic vol] 97.0 fL Normal 82.6-102.9 [facility] Comment on above: Performed By: #### C DP, SED, CP, CRP #### [address] [place], [facility] Binding Folder Machine: Darryl Goldberg MD Monocytes (Bld) [#/Vol] 0.66 10*3/uL Normal 0.10-1.20 [facility] Comment on above: Performed By: #### C DP, SED, CP, CRP #### [address] [place] [address] Binding Folder Machine: Darryl Goldberg MD Monocytes/100 WBC (Bld) 10 % Normal 3-12 [facility] Comment on above: Performed By: #### C DP, SED, CP, CRP #### [address] [place], [place] [id number] Binding Folder Machine: Darryl Goldberg MD Neutrophil (Seg) 59 % Normal 36-[address] [facility] Comment on above: Performed By: #### C DP, SED, CP, CRP #### [address] [place] [address] Binding Folder Machine: Darryl Goldberg MD NRBC Automated 0.0 per 100 WBC Normal 0.0 [facility] Comment on above: Performed By: #### C DP, SED, CP, CRP #### [address] [place], [place] [id number] Binding Folder Machine: Darryl Goldberg MD Platelet mean volume (Bld) [Entitic vol] 9.6 fL Normal 8.1-13.5 [facility] Comment on above: Performed By: #### C DP, SED, CP, CRP #### [address] [place] [place] [address] Binding Folder Machine: Darryl Goldberg MD Platelets (Bld) [#/Vol] 177 10*3/uL Normal 138-453 [facility] Comment on above: Performed By: #### C DP, SED, CP, CRP #### [address] [place] [address] Binding Folder Machine: Darryl Goldberg MD RBC (Bld) [#/Vol] 4.33 10*6/uL Normal 4.21-5.77 [facility] Comment on above: Performed By: #### C DP, SED, CP, CRP #### [address] [place] [address] Binding Folder Machine: Darryl Goldberg MD WBC (Bld) [#/Vol] 6.6 10*3/uL Normal 3.5-11.3 [facility] Comment on above: Performed By: #### C DP, SED, CP, CRP #### [facility] [address] [place], [place] [id number] Binding Folder Machine: Darryl Goldberg MD Comp Metabolic Profon 2024 Albumin [Mass/Vol] 4.0 g/dL Normal 3.5-5.2 [facility] Comment on above: Performed By: #### C DP, SED, CP, CRP #### [facility] [address] [place], [place] [address] Binding Folder Machine: Darryl Goldberg MD Albumin/Glob Ratio 1.1 Normal 1.0-2.5 [facility] Comment on above: Performed By: #### C DP, SED, CP, CRP #### [facility] [address] [place] [address] [place], [place] [id number] Binding Folder Machine: Darryl Goldberg MD Alkaline Phos 53 U/L Normal 40-129 [facility] Comment on above: Performed By: #### C DP, SED, CP, CRP #### [address] [place], [place] [id number] Binding Folder Machine: Darryl Goldberg MD ALT [Catalytic activity/Vol] 9 U/L Low 10-50 [facility] Comment on above: Performed By: #### C DP, SED, CP, CRP #### [facility] [address] [place] [address] [place], [place] [id number] Binding Folder Machine: Darryl Goldberg MD Anion gap [Moles/Vol] 11 mmol/L Normal 9-16 [facility] Comment on above: Performed By: #### C DP, SED, CP, CRP #### [facility] [address] [place], [place] [id number] Binding Folder Machine: Darryl Goldberg MD AST [Catalytic activity/Vol] 17 U/L Normal 10-50 [facility] Comment on above: Performed By: #### C DP, SED, CP, CRP #### [facility] [address] [place], [place] [id number] Binding Folder Machine: Darryl Goldberg MD Bilirubin [Mass/Vol] 0.7 mg/dL Normal 0.00-1.20 [facility] Comment on above: Performed By: #### C DP, SED, CP, CRP #### [facility] [address] [place], [facility]83 Binding Folder Machine: Darryl Goldberg MD BUN/CRE Ratio 24 High 9-20 [facility] Comment on above: Performed By: #### C DP, SED, CP, CRP #### [address] [place], [facility]83 Binding Folder Machine: Darryl Goldberg MD Calcium [Mass/Vol] 9.1 mg/dL Normal 8.6-10.4 [facility] Comment on above: Performed By: #### C DP, SED, CP, CRP #### [address] [place], [place] 0[address]183 Binding Folder Machine: Darryl Goldberg MD Chloride [Moles/Vol] 101 mmol/L Normal 98-107 [facility] Comment on above: Performed By: #### C DP, SED, CP, CRP #### [facility] [address] [place] [address] [place], [facility]83 Binding Folder Machine: Darryl Goldberg MD CO2 [Moles/Vol] 26 mmol/L Normal 20-31 [facility] Comment on above: Performed By: #### C DP, SED, CP, CRP #### [facility] [address] [place] [address] [place], [place] 1968783 Binding Folder Machine: Darryl Goldberg MD Creatinine [Mass/Vol] 0.7 mg/dL Normal 0.70-1.20 [facility] Comment on above: Performed By: #### C DP, SED, CP, CRP #### [facility] [address] [place] [address] Binding Folder Machine: Darryl Goldberg MD GFR/1.73 sq M.predicted among non-blacks MDRD (S/P/Bld) [Vol rate/Area] mL/min/{1.73_m2} Normal >60 [facility] Comment on above: Result Comment: These results are not intended for use in patients <18 years of age. eGFR results are calculated without a race factor using the 2020 CKD-EPI equation. Careful clinical correlation is recommended, particularly when comparing to results calculated using previous equations. The CKD-EPI equation is less accurate in patients with extremes of muscle mass, extra-renal metabolism of creatine, excessive creatine ingestion, or following therapy that affects renal tubular secretion. Performed By: #### C DP, SED, CP, CRP #### [address] [place] [address] Binding Folder Machine: Darryl Goldberg MD Glucose [Mass/Vol] 117 mg/dL High 74-99 [facility] Comment on above: Performed By: #### C DP, SED, CP, CRP #### [address] [place] [address] Binding Folder Machine: Darryl Goldberg MD Potassium [Moles/Vol] 4.9 mmol/L Normal 3.7-5.3 [facility] Comment on above: Performed By: #### C DP, SED, CP, CRP #### [address] [place] [address] Binding Folder Machine: Darryl Goldberg MD Protein [Mass/Vol] 7.8 g/dL Normal 6.6-8.7 [facility] Comment on above: Performed By: #### C DP, SED, CP, CRP #### [address] [place] [address] Binding Folder Machine: Darryl Goldberg MD Sodium [Moles/Vol] 138 mmol/L Normal 136-145 [facility] Comment on above: Performed By: #### C DP, SED, CP, CRP #### [facility] [address] [place] [address] Binding Folder Machine: Darryl Goldberg MD Urea nitrogen [Mass/Vol] 17 mg/dL Normal 8-23 [facility] Comment on above: Performed By: #### C DP, SED, CP, CRP #### [facility] [address] [place] [address] Binding Folder Machine: Darryl Goldberg MD [facility] Metabolic Pane [facility] 04-01-2025 Albumin [Mass/Vol] 4 g/dL 3.5 - 5.2 g/dL [facility] Albumin/Globulin [Mass ratio] 1.1 {ratio} 1.0 - 2.5 [facility] ALP [Catalytic activity/Vol] 53 U/L 40 - 129 U/L [facility] ALT [Catalytic activity/Vol] 9 U/L Low 10 - 50 U/L [facility] Anion gap [Moles/Vol] 11 mmol/L 9 - 16 mmol/L [facility] AST [Catalytic activity/Vol] 17 U/L 10 - 50 U/L [facility] Bilirubin [Mass/Vol] 0.7 mg/dL 0.00 - 1.20 mg/dL [facility] Calcium [Mass/Vol] 9.1 mg/dL 8.6 - 10. 4 mg/dL [facility] Chloride [Moles/Vol] 101 mmol/L 98 - 107 mmol/L [facility] CO2 [Moles/Vol] 26 mmol/L 20 - 31 mmol/L [facility] Creatinine [Mass/Vol] 0.7 mg/dL 0.70 - 1.20 mg/dL [facility] Est, Glom Filt Rate - PINF [facility] Comment on above: These results are not intended for use in patients <18 years of age. eGFR results are calculated without a race factor using the 2020 CKD-EPI equation. Careful clinical correlation is recommended, particularly when comparing to results calculated using previous equations. The CKD-EPI equation is less accurate in patients with extremes of muscle mass, extra-renal metabolism of creatine, excessive creatine ingestion, or following therapy that affects renal tubular secretion. Glucose [Mass/Vol] 117 mg/dL High 74 - 99 mg/dL [facility] Potassium [Moles/Vol] 4.9 mmol/L 3.7 - 5.3 mmol/L [facility] Protein [Mass/Vol] 7.8 g/dL 6.6 - 8.7 g/dL [facility] Sodium [Moles/Vol] 138 mmol/L 136 - 145 mmol/L [facility] Urea nitrogen [Mass/Vol] 17 mg/dL 8 - 23 mg/dL [facility] Urea nitrogen/Creatinine [Mass ratio] 24 mg/mg High 9 - 20 [facility] MHPT SEDIMENTATION RATEon MHPT SEDIMENTATION RATE 13 [facility] Original Ordering Provider: [facility] No Panel Informationon 04-01 Interpretation and review of laboratory results Abnormal [facility] Sedimentation Rateon 025 ESR Photometric method (Bld) [Velocity] 13 [facility] Sedimentation Rate 13 mm/Hr Normal 0-20 [facility] Comment on above: Performed By: #### C DP, SED, CP, CRP #### [facility] [address] [place] [address] Binding Folder Machine: Darryl Goldberg MD ECHOCARDIO M/2D COMPLETEon 0 03-07-2021 ECHOCARDIO M/2D COMPLETE Patient: NETTIE RAMIREZ Exam Date: 03/07/2021 : 1950 Gender:M Ordering : BROOKS GAUTAM MD Admission #: [id number] Family : Order #: [id number] CLICK HERE TO VIEW EXAM ECHOCARDIOGRAM REPORT [...] Area(A4C): 23.70 cm2 Left Atrium Systolic Volume(A2C): 05628 mm3 Left Atrium Systolic Volume(A4C): 23611 mm3 Mitral Valve MV E to A Ratio: 1.10 Mitral Valve A-Wave Peak Velocity: 63.20 cm/s Mitral Valve E-Wave Peak Velocity: 76.00 cm/s Deceleration [place]: 4120 mm/s2 Mitral Valve A-Wave Peak Velocity: [...] Geller M.D. on 03/07/2021 at 15:01 Normal [facility] BASIC METABOLIC PANELon 03-3 Calcium [Mass/Vol] 9.2 mg/dL Normal 8.6-10.3 [facility] Comment on above: Performed By: #### 0 0071 #### [facility] [address] [place] [address], [facility] Chloride [Moles/Vol] 99 mmol/L Normal 98-107 [facility] Comment on above: Performed By: #### 0 0071 #### [facility] [address] [place] [address], [facility] CO2 [Moles/Vol] 27 mmol/L Normal 21-31 [facility] Comment on above: Performed By: #### 0 0071 #### [facility] [address] [place] [address], [facility] Creatinine [Mass/Vol] 0.82 mg/dL Normal 0.70-1.30 [facility] Comment on above: Performed By: #### 0 0071 #### [facility] [address] [place] [address], [facility] GFR/1.73 sq M.predicted among blacks MDRD (S/P/Bld) [Vol rate/Area] mL/min/{1.73_m2} Normal >60 [facility] Comment on above: Performed By: #### 0 0071 #### [facility] [address] [place] [address], [facility] GFR/1.73 sq M.predicted among non-blacks MDRD (S/P/Bld) [Vol rate/Area] mL/min/{1.73_m2} Normal >60 [facility] Comment on above: Performed By: #### 0 0071 #### [facility] [address] [place] [address], [facility] Glucose [Mass/Vol] 117 mg/dL High 70-100 [facility] Comment on above: Performed By: #### 0 0071 #### [facility] [address] [facility] [place] [address], [facility] Potassium [Moles/Vol] 4.2 mmol/L Normal 3.5-5.1 [facility] Comment on above: Performed By: #### 0 0071 #### [facility] [address] [place] [address], [facility] Sodium [Moles/Vol] 134 mmol/L Low 136-145 [facility] Comment on above: Performed By: #### 0 0071 #### [facility] [address] [place] [address], [facility] Urea nitrogen [Mass/Vol] 15 mg/dL Normal 7-25 [facility] Comment on above: Performed By: #### 0 0071 #### [facility] [address] [facility] [place] [place] [address], [facility] Cardiovascular Lab Reporton 01-04-2021 Cardiovascular Lab Report [facility] Patient Name: Nettie Ramirez [facility] MR #: [id number] Physician: Brooks Gautam MD Department of Service Date: 01/04/2021 Medicine Birthdate: 1950 Division of Room #: 3AB [id number] Cardiology Adult Cardiovascular Services [facility] [address] [place] [address] Cardiovascular Laboratory Report ATRIAL FIBRILLATION ABLATION PROCEDURE [...] lipomatous hypertrophy. Esophagus was mapped using the EsMV Sistemastar and GoodBellyUND 3D mapping software and noted to be [...] perivenous (more content not included)... Normal [facility] POC GLUCOSE LABon 01-04-2021 Glucose [Mass/Vol] 121 mg/dL High 70-100 [facility] Comment on above: Performed By: #### 8 [id number] #### [facility] [address] [place] [address], [facility] CREATININE BLOODon Creatinine [Mass/Vol] 0.77 mg/dL Normal 0.70-1.30 [facility] Comment on above: Performed By: #### 2 5656 #### [facility] [address] [facility] [place] [address], [facility] GFR/1.73 sq M.predicted among blacks MDRD (S/P/Bld) [Vol rate/Area] mL/min/{1.73_m2} Normal >60 [facility] Comment on above: Performed By: #### 2 5656 #### [facility] [address] [place] [address], [facility] GFR/1.73 sq M.predicted among non-blacks MDRD (S/P/Bld) [Vol rate/Area] mL/min/{1.73_m2} Normal >60 [facility] Comment on above: Performed By: #### 2 5656 #### [facility] [address] [place] [address], [facility] CTA CHESTon 12-26-2020 CTA CHEST [facility] Department of Radiology [address] [place] [id number] ======== Patient Name: NETTIE RAMIREZ : 1950 Sex: M Age: Race: White Pt. Location: [facility] Patient Status: O Ordered Date: 11/04/2020 2:40:00 PM Completed Date: 12/26/2020 12:12 PM Requesting Provider: BROOKS GAUTAM Attending Provider: BROOKS GAUTAM Report Copy To: ELIZABETH CRAVEN V Signs & Symptoms: I48.0 Paroxysmal atrial fibrillation I10 History: Claudette patient will need labs Schedule week of December 26. MEDICARE no pc required [id number] 11/09/20 *kw Comments: Pre-Ablation on 01/04/21 , gaitankita Exam: CTA CHEST ======== Clinical history: Paroxysmal [...] The Electronically signed: Darryl Posey. Transcribed by: [email or web address], User Resident: Electronically Signed by: DARRYL POSEY @ 12/26/2020 12:41 PM Normal [facility] Comment on above: Order Comment: Pre-A blation on 01/04/21 , gaited Covid-19 PCR (CVDTBH)on 09-06 EUA Statement SEE BELOW Normal [facility] Comment on above: Result Comment: This test is not yet approved or cleared by the [place] FDA. When there are no FDA-approved or cleared tests available, and other criteria are met, FDA can make tests available under an emergency access mechanism called an Emergency Use Authorization (EUA). The EUA for this test is supported by the [place] of Health and Human Service?s (HHS?s) declaration [...] consistent with SARS-CoV-2. Performed By: #### C [facility] ####[facility] [address] [place] [address] SARS-CoV-2 (COVID-19) RNA EMMANUEL+probe Ql (Unsp spec) Not detected Normal NOT DETECTED [facility] Comment on above: Result Comment: This test is not yet approved or cleared by the [place] FDA. When there are no FDA-approved or cleared tests available, and other criteria are met, FDA can make tests available under an emergency access mechanism called an Emergency Use Authorization (EUA). The EUA for this test is supported by the Training Developer of Health and Human Service's (HHS's) declaration [...] be used). Performed By: #### C VDTB ####[facility] [address] [place] [address] Kathe CBC AUTO DIFFon 09-19-2020 BASO # 0.0 103/ul Normal 0.0-0.1 [facility] Comment on above: Performed By: #### C BC ####[facility] [address] [place] [id number] Kathe Basophils/100 WBC (Bld) 0.3 % Normal 0.2-2.0 [facility] Comment on above: Performed By: #### C BC ####[facility] [address] [place] [id number] Kathe EO # 0.1 103/ul Normal 0.0-0.[address] [facility] Comment on above: Performed By: #### C BC ####[facility] [address] [place], [place] [address]Gerken Kathe Eosinophils/100 WBC (Bld) 1.5 % Normal 0.9-7.0 [facility] Comment on above: Performed By: #### C BC ####[facility] [address] [place], [place] [id number] Kathe Erythrocyte distribution width (RBC) [Ratio] 13.0 % Normal 11.0-15.0 [facility] Comment on above: Performed By: #### C BC ####[facility] [address] [place], [place] [address]Gerken Kathe Hematocrit (Bld) [Volume fraction] 45.1 % Normal 42.0-54.0 [facility] Comment on above: Performed By: #### C BC ####[facility] [address] [place], [place] [address]Gerken Kathe Hemoglobin (Bld) [Mass/Vol] 14.3 g/dL Normal 14.0-18.[address] [facility] Comment on above: Performed By: #### C BC ####[facility] [address] [place], [place] [address]Gerken Kathe IG # 0.01 10e3/ul Normal 0.00-0.[address] [facility] Comment on above: Performed By: #### C BC ####[facility] [address] [place], [place] [address]Gerken Kathe IG % 0.1 % Normal 0.0-0.5 [facility] Comment on above: Performed By: #### C BC ####[facility] [address] [place], [place] [address]Qrxtmr Kathe LYMPH # 1.5 103/ul Normal 1.2-3.8 [facility] Comment on above: Performed By: #### C BC ####[facility] [address] [place] [id number] Kathe Lymphocytes/100 WBC (Bld) 22.8 % Normal 20.5-60.0 [facility] Comment on above: Performed By: #### C BC ####[facility] [address] [place], [place] [address]Ubkeez Kathe MANUAL DIFF REQ NO Normal [facility] Comment on above: Performed By: #### C BC ####[facility] [address] [place], [place] [address]Gerken Kathe MCH (RBC) [Entitic mass] 31.3 pg Normal 25.9-34.0 [facility] Comment on above: Performed By: #### C BC ####[facility] [address] [place] [address]Aknlur Kathe MCHC (RBC) [Mass/Vol] 31.7 g/dL Normal 29.9-35.2 [facility] Comment on above: Performed By: #### C BC ####[facility] [address] [place], [place] [address]Gerken Kathe MCV (RBC) [Entitic vol] 98.7 fL Critically high 80.0-94.0 [facility] Comment on above: Performed By: #### C BC ####[facility] [address] [place] [id number] Kathe MONO # 0.8 103/ul Normal 0.3-0.8 [facility] Comment on above: Performed By: #### C BC ####[facility] [address] [place] [address]Gerken Kathe Monocytes/100 WBC (Bld) 12.2 % Critically high 1.7-12.0 [facility] Comment on above: Performed By: #### C BC ####[facility] [address] [place], [place] [address]GugkizLizett Archuleta NEUT # 4.2 103/ul Normal 1.4-6.[address] [facility] Comment on above: Performed By: #### C BC ####[facility] [address] [place] [id number] Archuleta Neutrophils/100 WBC (Bld) 63.1 % Normal 43.0-75.[address] [facility] Comment on above: Performed By: #### C BC ####[facility] [address] [place], [place] [address]KgzwwuLizett Archuleta Platelet mean volume (Bld) [Entitic vol] 9.8 fL Normal 9.5-13.[address] [facility] Comment on above: Performed By: #### C BC ####[facility] [address] Kathe PLT 137 103/ul Critically low 150-450 [facility] Comment on above: Performed By: #### C BC ####[facility] [address] [place], [place] [address]Bpkouu Kathe RBC 4.57 106/ul Critically low 4.70-6.10 [facility] Comment on above: Performed By: #### C BC ####[facility] [address] [place] [address]Lizett Archuleta WBC 6.7 103/ul Normal 4.0-11.[address] [facility] Comment on above: Performed By: #### C BC ####[facility] [address] [place] [address]Gerken Kathe Covid-19 PCR (CVDTBH)on 09-06 EUA Statement SEE BELOW Normal [facility] Comment on above: Result Comment: This test is not yet approved or cleared by the [place] FDA. When there are no FDA-approved or cleared tests available, and other criteria are met, FDA can make tests available under an emergency access mechanism called an Emergency Use Authorization (EUA). The EUA for this test is supported by the Training Developer of Health and Human Service?s (HHS?s) declaration [...] SARS-CoV-2. Performed By: #### C VDTB #### [facility] [address] [place] [address] Lizett Archuleta SARS-CoV-2 (COVID-19) RNA EMMANUEL+probe Ql (Unsp spec) Not detected Normal NOT DETECTED [facility] Comment on above: Result Comment: This test is not yet approved or cleared by the [place] FDA. When there are no FDA-approved or cleared tests available, and other criteria are met, FDA can make tests available under an emergency access mechanism called an Emergency Use Authorization (EUA). The EUA for this test is supported by the Training Developer of Health and Human Service's (HHS's) declaration [...] used). Performed By: #### C VDTB #### [facility] [address] [place] [address] Lizett Archuleta PROF CHEM 8 (BAS METB)on Anion gap [Moles/Vol] 17.3 mmol/L Normal [facility] Comment on above: Performed By: #### B MP #### [facility] [address] [place] [address] Lizett Archuleta Calcium [Mass/Vol] 9.5 mg/dL Normal 8.4-10.2 [facility] Comment on above: Performed By: #### B MP #### [facility] [address] [id number] Lizett Kathe Chloride [Moles/Vol] 103 mmol/L Normal 98-[address] [facility] Comment on above: Performed By: #### B MP #### [facility] [address] [place] [address] Lizett Kathe CO2 [Moles/Vol] 25.2 mmol/L Normal 22.0-30.0 [facility] Comment on above: Performed By: #### B MP #### [facility] [address] [place] [address] Lizett Kathe Creatinine [Mass/Vol] 0.85 mg/dL Normal 0.66-1.[address] [facility] Comment on above: Performed By: #### B MP #### [facility] [address] [place] [address] Lizett Kathe EGFR-AF COMORAN >60 Normal >=60 [facility] Comment on above: Performed By: #### B MP #### [facility] [address] [place] [address] Lizett Kathe EGFR-NON AF COMORAN >60 Normal >=[address] [facility] Comment on above: Performed By: #### B MP #### [facility] [address] [place] [address] Lizett Kathe Glucose [Mass/Vol] 102 mg/dL Normal 74-106 [facility] Comment on above: Performed By: #### B MP #### [facility] [address] [address] Lizett Kathe Potassium [Moles/Vol] 4.5 mmol/L Normal 3.4-5.[address] [facility] Comment on above: Performed By: #### B MP #### [facility] [address] [place] [address] Lizett Kathe Sodium [Moles/Vol] 141 mmol/L Normal 137-145 [facility] Comment on above: Performed By: #### B MP #### [facility] [address] [address] Lizett Kathe Urea nitrogen [Mass/Vol] 20.0 mg/dL Normal 9.0-20.0 [facility] Comment on above: Performed By: #### B MP #### [facility] [address] [place], [place] [address] Lizett Archuleta Urea nitrogen/Creatinine [Mass ratio] 23.5 mg/mg Normal [facility] Comment on above: Performed By: #### B MP #### [facility] [address] [place], [place] [address] CHEST W CONon 09-07-2020 [...] by: DARRYL GRIDER Date: 2020-09-07 11:06 Normal [facility] LIVER PROFILEon 09-07-2020 Albumin [Mass/Vol] 3.8 g/dL Normal 3.5-5.0 [facility] Comment on above: Performed By: #### L IVER, TSH, T4 #### [facility] [address] [place], [place] [address] Lizett Archuleta Albumin/Globulin [Mass ratio] 1.0 {ratio} Normal [facility] Comment on above: Performed By: #### L IVER, TSH, T4 #### [facility] [address] [place] [id number] Lizett Kathe ALP [Catalytic activity/Vol] 60 U/L Normal 38-126 [facility] Comment on above: Performed By: #### L IVER, TSH, T4 #### [facility] [address] [phone] Lizett Kathe ALT [Catalytic activity/Vol] 16 U/L Critically low 21-72 [facility] Comment on above: Performed By: #### L IVER, TSH, T4 #### [facility] [address] [place] [id number] Lizett Kathe AST [Catalytic activity/Vol] 17 U/L Normal 17-59 [facility] Comment on above: Performed By: #### L IVER, TSH, T4 #### [facility] [address] [place], [place] [address] Lizett Kathe BILI, CONJUGATED 0.3 mg/dL Normal 0.0-0.3 [facility] Comment on above: Performed By: #### L IVER, TSH, T4 #### [facility] [address] [place] [address] Lizett Kathe Bilirubin [Mass/Vol] 1.2 mg/dL Normal 0.2-1.3 [facility] Comment on above: Performed By: #### L IVER, TSH, T4 #### [facility] [address] [phone] Lizett Kathe Globulin (S) [Mass/Vol] 3.8 g/dL Normal [facility] Comment on above: Performed By: #### L IVER, TSH, T4 #### [facility] [address] [place] [id number] Lizett Kathe Protein [Mass/Vol] 7.6 g/dL Normal 6.1-8.2 [facility] Comment on above: Performed By: #### L IVER, TSH, T4 #### [facility] [address] [place] [id number] Lizett Kathe T4on 09-07-2020 T4 [Mass/Vol] 9.40 ug/dL Normal 5.53-11.00 [facility] Comment on above: Performed By: #### L IVER, TSH, T4 #### [facility] [address] [id number] Lizett Archuleta TSHon 09-07-2020 TSH 1.447 uIU/mL Normal 0.470-4.680 [facility] Comment on above: Performed By: #### L IVER, TSH, T4 #### [facility] [address] [place] [id number] Lizett Archuleta TSH RANGE SEE BELOW Normal [facility] Comment on above: Result Comment: <0.3 4 UIU/ml HYPERTHYROID 0.34-5.60 UIU/ml EUTHYROID >5.60 UIU/ml HYPOTHYROID Performed By: #### L IVER, TSH, T4 #### [facility] [address] [place] [address] Lizett Archuleta XR CHEST 2 Von 09-07-2020 [...] CLARE WEST Date: 2020-09-07 11:49 Normal [address] [facility] HEMOGLOBINon 08-10-2020 Hemoglobin (Bld) [Mass/Vol] 14.2 g/dL Normal 14.0-18.0 [facility] Comment on above: Performed By: #### H GB ####[facility] [address] [place] [id number] Archuleta PROF CHEM 8 (BAS METB)on Anion gap [Moles/Vol] 9.9 mmol/L Normal [facility] Comment on above: Performed By: #### B MP #### [facility] [address] [place], [place] [address] Lizett Kathe Calcium [Mass/Vol] 9.2 mg/dL Normal 8.4-10.2 [facility] Comment on above: Performed By: #### B MP #### [facility] [address] [place], [place] [id number] Lizett Kathe Chloride [Moles/Vol] 101 mmol/L Normal 98-[address] [facility] Comment on above: Performed By: #### B MP #### [facility] [address] [place] [address] Lizett Kathe CO2 [Moles/Vol] 31.5 mmol/L Critically high 22.0-30.[address] [facility] Comment on above: Performed By: #### B MP #### [facility] [address] [place] [address] Lizett Kathe Creatinine [Mass/Vol] 0.84 mg/dL Normal 0.66-1.[address] [facility] Comment on above: Performed By: #### B MP #### [facility] [address] [place], [place] [id number] Lizett Kathe EGFR-AF COMORAN >60 Normal >=60 The [facility] Comment on above: Performed By: #### B MP #### [facility] [address] [place] [address] Lizett Kathe EGFR-NON AF COMORAN >60 Normal >=[address] [facility] Comment on above: Performed By: #### B MP #### [facility] [address] [place] [address] Lizett Kathe Glucose [Mass/Vol] 114 mg/dL Critically high 74-106 [facility] Comment on above: Performed By: #### B MP #### [facility] [address] [place] [address] Lizett Kathe Potassium [Moles/Vol] 4.4 mmol/L Normal 3.4-5.[address] [facility] Comment on above: Performed By: #### B MP #### [facility] [address] [place], [place] [address] Lizett Kathe Sodium [Moles/Vol] 138 mmol/L Normal 137-145 [facility] Comment on above: Performed By: #### B MP #### [facility] [address] [place], [place] [address] Lizettoanh Archuleta Urea nitrogen [Mass/Vol] 20.0 mg/dL Normal 9.0-20.0 [facility] Comment on above: Performed By: #### B MP #### [facility] [address] [place], [place] [address] Lizett Archuleta Urea nitrogen/Creatinine [Mass ratio] 23.8 mg/mg Normal [facility] Comment on above: Performed By: #### B MP #### [facility] [address] [place], [place] [address] Lizettoanh Archuleta COLONOSCOPY PROCEDUREon 04-06 No dictation [place], [place] COVID-19on 04-21-2020 SARS-CoV-2 [place], [place] SARS-CoV-2, PCR Not Detected Not Detected [place], [place] Comment on above: (NOTE) The Aptima SARS-CoV-2 assay is a nucleic acid amplification test intended for the qualitative detection of RNA from SARS-CoV-2 isolated and purified from nasopharyngeal (NEON TUBE BENDER), nasal and oropharyngeal (OP) swab specimens from patients with signs and symptoms of infection who are suspected of COVID-19. Results are for the identification of SARS-CoV-2 RNA. The SARS-CoV-2 RNA is generally detectable in nasopharyngeal and oropharyngeal swabs during the acute phase of infection. The Aptima SARS-CoV-2 Assay on the Sift system is intended for use by laboratory personnel specifically instructed and trained in the operation of the Sentons and Sentons Fusion system. The Aptima SARS-CoV-2 assay is [...] The above 1 analytes [address] performed by [facility] Ian [place] [address] SARS-CoV-2, Rapid [place], [place] Source .NASOPHARYNGEAL SWAB [place], [place] Vital Signs Date Time Vital Sign Value Performing Clinician Facility 06-10-2025 13:47-0400 Body height 170.2 cm Yarelis Mcallister [employer] BENDER Work Phone: [facility] 06-10-2025 13:47-0400 Body mass index (BMI) [Ratio] 31.79 kg/m2 Yarelis Mcallister [employer]ER Work Phone: [facility] 06-10-2025 13:47-0400 Body weight 92.08 kg Yarelis Mcallister [employer]ER Work Phone: [facility] 06-10-2025 13:47-0400 Diastolic blood pressure 62 mm[Hg] Yarelis Mcallister [employer]ER Work Phone: [facility] 06-10-2025 13:47-0400 Heart rate 51 /min Yarelis Mcallister [employer]ER Work Phone: [facility] 06-10-2025 13:47-0400 SaO2% (BldA) [Mass fraction] 94 % Yarelis Mcallister [employer]ER Work Phone: [facility] 06-10-2025 13:47-0400 Systolic blood pressure 106 mm[Hg] Yarelis Mcallister [employer]ER Work Phone: [facility] 09-15-2024 13:16-0500 Body height 170.2 cm Amilcar Rusher DPM Work Phone: [facility] 09-15-2024 13:16-0500 Body mass index (BMI) [Ratio] 34.14 kg/m2 Amilcar Rusher DPM Work Phone: [facility] 09-15-2024 13:16-0500 Body weight 98.88 kg Amilcar Rusher DPM Work Phone: [facility] 08-24-2024 11:14-0500 Body height 170.2 cm Amilcar Rusher DPM Work Phone: [facility] 08-24-2024 11:14-0500 Body mass index (BMI) [Ratio] 34.14 kg/m2 Amilcar Rusher DPM Work Phone: [facility] 08-24-2024 11:14-0500 Body weight 98.88 kg Amilcar Lindsay DPM Work Phone: [facility] 07-20-2024 13:18-0400 Body height 170.2 cm Amilcar Lindsay DPM Work Phone: [facility] 07-20-2024 13:18-0400 Body mass index (BMI) [Ratio] 34.14 kg/m2 Amilcar Lindsay DPM Work Phone: [facility] 07-20-2024 13:18-0400 Body weight 98.88 kg Amilcar Lindsay DPM Work Phone: [facility] 07-15-2024 13:32-0400 Body height 170.2 cm Amilcar Lindsay DPM Work Phone: [facility] 07-15-2024 13:32-0400 Body mass index (BMI) [Ratio] 36.49 kg/m2 Amilcar Lindsay DPM Work Phone: [facility] 07-15-2024 13:32-0400 Body weight 105.69 kg Amilcar Lindsay DPM Work Phone: [facility] 06-11-2024 13:11-0400 Body height 170.2 cm Yarelis Mcallister [employer]ER Work Phone: [facility] 06-11-2024 13:11-0400 Body mass index (BMI) [Ratio] 36.49 kg/m2 Yarelis Mcallister [employer]ER Work Phone: [facility] 06-11-2024 13:11-0400 Body weight 105.69 kg Yarelis Mcallister [employer]ER Work Phone: [facility] 06-11-2024 13:11-0400 Diastolic blood pressure 80 mm[Hg] Yarelis Mcallister [employer]ER Work Phone: [facility] 06-11-2024 13:11-0400 Heart rate 52 /min Yarelis Mcallister [employer]ER Work Phone: [facility] 06-11-2024 13:11-0400 SaO2% (BldA) [Mass fraction] 95 % Yarelis Mcallister [employer]ER Work Phone: [facility] 06-11-2024 13:11-0400 Systolic blood pressure 110 mm[Hg] Yarelis Mcallister [employer]ER Work Phone: [facility] 04-22-2020 11:28-0400 BP Diastolic 76 mm[Hg] [facility] [place] 04-22-2020 11:28-0400 BP Systolic 128 mm[Hg] [facility] [place], [place] 04-22-2020 11:28-0400 Pulse (Heart Rate) 57 /min [facility] [place] 04-22-2020 11:28-0400 Pulse Oximetry 97 % [facility] [place] 04-22-2020 11:28-0400 Respiratory Rate 16 /min [facility] [place] 04-22-2020 10:58-0400 Body Temperature 98.49 [degF] [facility] [place] 04-22-2020 09:02-0400 BMI (Body Mass Index) 35.18 kg/m2 [facility] [place] 04-22-2020 09:02-0400 Body weight 103.42 kg [facility] [place] 04-22-2020 09:02-0400 Height 171.5 cm [facility] [place] Encounters Encounter Date Encounter Type Care Provider Facility Start: 07-12-2025 End: 07-12-2025 ambulatory [facility] Start: 06-10-2025 End: 06-10-2025 Bamboo flowsheet Yarelis Mcallister [employer]ER Work Phone: [facility] Start: 06-10-2025 End: 06-10-2025 Bamboo flowsheet Yarelis Mcallister [employer]ER Work Phone: [facility] Start: 06-10-2025 End: 06-10-2025 Patient encounter procedure Yarelis Mcallister [employer]ER Work Phone: [facility] Comment on above: Wellness examination (Primary Dx); Obstructive sleep apnea syndrome; CPAP (continuous positive airway pressure) dependence; 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 ; Chronic systolic heart failure (HCC); Essential hypertension ; Paroxysmal atrial fibrillation (HCC); Gastroesophageal reflux disease, unspecified whether esophagitis present; Erectile dysfunction, unspecified erectile dysfunction type; Chronic ulcer of right heel with fat layer exposed (HCC); senior care current use of anticoagulant therapy; Hyperlipidemia LDL goal <70 ; Other hyperlipidemia ; Screening for lipid disorders; Screening for cardiovascular condition Start: 06-10-2025 End: 06-10-2025 Patient encounter status Yarelis Mcallister [employer]ER Work Phone: [facility] Work Phone: Start: 06-10-2025 End: 06-10-2025 ambulatory YARELIS MCALLISTER Not Available Start: 04-01-2025 End: 04-01-2025 ambulatory [facility] Start: 04-01-2025 End: 04-01-2025 Subsequent hospital visit by physician Nkechi Ghosh DO Work Phone: [facility] Start: 04-01-2025 End: 04-01-2025 Clinisync Result Encounter Generic External Data Provider [facility] External Department Unsolicited Start: 04-01-2025 End: 04-01-2025 Clinisync Result Encounter Generic External Data Provider [facility] External Department Unsolicited Start: 12-23-2024 End: 12-24-2024 Telephone encounter Yarelis Mcallister [employer]ER Work Phone: [facility] Comment on above: Results Start: 12-10-2024 End: 12-10-2024 Bamboo flowsheet Yarelis Mcallister [employer]ER Work Phone: [facility] Start: 12-10-2024 End: 12-10-2024 Bamboo flowsheet Yarelis Mcallister [employer]ER Work Phone: [facility] Start: 12-10-2024 End: 12-10-2024 ambulatory YARELIS MCALLISTER Not Available Start: 09-15-2024 End: 09-15-2024 Bamboo flowsheet Amilcar Lindsay DPM Work Phone: [facility] Start: 09-15-2024 End: 09-15-2024 Bamboo flowsheet Amilcar Lindsay DPM Work Phone: [facility] Start: 09-15-2024 End: 09-15-2024 Office outpatient visit 15 minutes Amilcar S Oj DPM Work Phone: [facility] Comment on above: Other acquired defor mities of right foot (Primary Dx); Varus deformity, not elsewhere classified, left ankle; Varus deformity, not elsewhere classified, right ankle; CMT (Leetlan-Pgrxw-Kvqtj disease); Localized edema Start: 09-15-2024 End: 09-15-2024 ambulatory AMILCAR LINDSAY Not Available Start: 08-26-2024 End: 08-26-2024 Telephone encounter Amilcar Sabrina Oj DPM Work Phone: [facility] Comment on above: Advice Only Start: 08-24-2024 End: 08-24-2024 Bamboo flowsheet Amilcar Lindsay DPM Work Phone: [facility] Start: 08-24-2024 End: 08-24-2024 Bamboo flowsheet Amilcar Lindsay DPM Work Phone: [facility] Start: 08-24-2024 End: 08-24-2024 Postop follow up visit related to original px Amilcar S Angélica DPM Work Phone: [facility] Comment on above: Other acquired defor mities of right foot (Primary Dx); Varus deformity, not elsewhere classified, left ankle; Varus deformity, not elsewhere classified, right ankle; Instability of left ankle joint; Instability of right ankle joint; CMT (Yjhskjp-Hciyc-Loxbd disease); Difficulty walking; Acquired equinus deformity of left foot Start: 08-24-2024 End: 08-24-2024 ambulatory AMILCAR LINDSAY Not Available Start: 08-10-2024 End: 08-10-2024 Telephone encounter Amilcar Lindsay DPM Work Phone: [facility] Comment on above: Advice Only ([employer]) Start: 07-20-2024 End: 07-20-2024 Bamboo flowsheet Amilcar Lindsay DPM Work Phone: [facility] Start: 07-20-2024 End: 07-20-2024 Bamboo flowsheet Amilcar Lindsay DPM Work Phone: [facility] Start: 07-20-2024 End: 07-20-2024 Postop follow up visit related to original px Amilcar Lindsay DPM Work Phone: [facility] Comment on above: Other acquired defor mities of right foot (Primary Dx); Varus deformity, not elsewhere classified, left ankle; Varus deformity, not elsewhere classified, right ankle; Instability of left ankle joint; Instability of right ankle joint; Acquired equinus deformity of left foot; CMT (Ggxkhxm-Buxkr-Spujv disease) Start: 07-20-2024 End: 07-20-2024 ambulatory AMILCAR Sabrina ANGÉLICA Not Available Start: 07-15-2024 End: 07-15-2024 Bamboo flowsheet Amilcar Lindsay DPM Work Phone: [facility] Start: 07-15-2024 End: 07-15-2024 Bamboo flowsheet Amilcarjose Lindsay DPM Work Phone: [facility] Start: 07-15-2024 End: 07-15-2024 ambulatory AMILCAR Sabrina OJ Not Available Start: 07-15-2024 End: 07-15-2024 Office outpatient new 30 minutes Amilcar Sabrina Angélica DPM Work Phone: [facility] Comment on above: Varus deformity, not elsewhere classified, left ankle (Primary Dx); Other acquired deformities of right foot; Varus deformity, not elsewhere classified, right ankle; Instability of left ankle joint; Instability of right ankle joint; CMT (Htetjwt-Vulcv-Vaqfb disease); Acquired equinus deformity of left foot; Difficulty walking Start: 06-11-2024 End: 06-11-2024 Patient encounter procedure Yarelis Mcallister NP Work Phone: [facility] Comment on above: Medicare annual [facility] visit, subsequent (Primary Dx); Screening for cardiovascular condition; Screening for lipid disorders; Other hyperlipidemia ([facility]/HCC); Hyperglycemia; Inversion deformity of left foot; Pain in left ankle and joints of left foot; Poor balance; Obstructive sleep apnea syndrome; CPAP (continuous positive airway pressure) dependence; Chronic systolic heart failure ([facility]); Essential hypertension ([facility] Paroxysmal atrial fibrillation ([facility]); 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 ([facility]); Gastroesophageal reflux disease, unspecified whether esophagitis present; Erectile dysfunction, unspecified erectile dysfunction type; Sensorineural hearing loss (SNHL) of both ears; 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; Hyperlipidemia LDL goal <70 ([facility]) Start: 11-14-2023 Chart abstracting Yarelis gale NP Work Phone: [facility] Start: 03-07-2021 End: 03-08-[address] DOCTOR GALLAGHER Facility:[facility] Start: 01-04-2021 End: 01-05-2021 ambulatory BROOKS GAUTAM Facility:[facility] Start: 09-23-2020 End: 09-24-[address] ELIZABETH CRAVEN Facility:[facility] Start: 09-19-2020 End: 09-20-[address] DOCTOR GALLAGHER Facility:[facility] Start: 09-07-2020 End: 09-08-[address] ELIZABETH CRAVEN Facility:[facility] Start: 08-10-2020 End: 08-11-[address] ELIZABETH CRAVEN Facility:[facility] Start: 04-22-2020 End: 04-22-2020 Subsequent hospital visit by physician Kena Jiménez Work Phone: [facility] Start: 04-19-2020 End: 04-23-2020 Subsequent hospital visit by physician Sandeep Duongid19 Pat Screening Schedule MTH PRE ADMIT Start: 03-30-2020 End: 03-31-2020 ambulatory KIRTI BUNCH Facility: Procedures Date Procedure Procedure Detail Performing Clinician Start: 04-01-2025 C-reactive protein Neli Brooke MD Work Phone: Start: 04-01-2025 Comprehensive metabo lic panel Kirti Brooke MD Work Phone: Start: 04-01-2025 MHPT SEDIMENTATION RATE Generic External Data Provider Start: 01-04-2021 ANESTH CARDIAC ELECTROPHYS BROOKS GAUTAM Start: 01-04-2021 CATH, EP, DIAG/ABL, 3D/VECT BROOKS GAUTAM Start: 01-04-2021 ELECTROPHYS MAP 3D ADD-ON BROOKS GAUTAM Start: 01-04-2021 TX ATRIAL FIB PULM V EIN ISOL BROOKS GAUTAM Start: 04-22-2020 End: 04-22-2020 Colonoscopy Kena Jiménez Work Phone: Start: 04-19-2020 COVID-19 Rashadlinda varner Work Phone: Plan of Treatment Date Care Activity Detail Author Start: 04-22-2030 Screening for malign ant neoplasm of colon [facility] Start: 12-08-2025 End: 12-08-2025 Patient encounter procedure 12/08/2025 1:30 PM EST Office Visit [facility] [address] [place] [address] Yarelis Mcallister, NEON [employer]UBE BENDER [address] [place] [address] [facility] Start: 06-10-2025 End: 06-10-2026 Lipid 1996 panel - Serum or Plasma Lipid panel Lab Routine Screening for cardiovascular condition Screening for lipid disorders Other hyperlipidemia Expected: 06/10/2025 (Approximate), Expires: 06/10/2026 [facility] Work Phone: Comment on above: Expected: 06/10/2025 (Approximate), Expires: 06/10/2026 Start: 06-10-2025 End: 06-10-2025 Patient encounter procedure [facility] Comment on above: Arrived Start: 06-07-2025 Influenza vaccination Influenza Vacc ine (#1) [facility] Start: 12-10-2024 End: 12-10-2024 Patient encounter procedure 12/10/2024 1:30 PM EST Office Visit [facility] [address] [place] [phone] Yarelis Mcallister, [employer] BENDER [address] [place] [address] [facility] Start: 12-10-2024 End: 12-10-2024 Patient encounter procedure 12/10/2024 10:30 AM EST Office Visit [facility] [address] [place] [phone] Yarelis Mcallister, [employer] TU[employer] BENDER [address] [place], [place] [phone] Arrived [facility] Comment on above: Arrived Start: 09-15-2024 End: 09-15-2024 Patient encounter procedure [facility] Comment on above: Arrived Start: 07-20-2024 End: 07-20-2024 Patient encounter procedure 07/20/2024 1:15 PM EDT Office Visit [facility] [address] [place] [phone] Amilcar Lindsay, DPM [address] [place] [address] Arrived [facility] Comment on above: Arrived Start: 06-11-2024 End: 06-11-2025 CBC W Auto Differential panel - Blood CBC and differential Lab Routine Screening for cardiovascular condition Expected: 06/11/2024 (Approximate), Expires: 06/11/2025 [facility] Comment on above: Expected: 06/11/2024 (Approximate), Expires: 06/11/2025 Start: 06-11-2024 End: 06-11-2025 Comprehensive metabolic 2000 panel - Serum or Plasma Comprehensive metabolic panel Lab Routine Screening for cardiovascular condition Expected: 06/11/2024 (Approximate), Expires: 06/11/2025 [facility] Work Phone: Comment on above: Expected: 06/11/2024 (Approximate), Expires: 06/11/2025 Start: 06-11-2024 End: 06-11-2025 Hemoglobin A1c/Hemoglobin.total in Blood Hemoglobin A1c Lab Routine Hyperglycemia Expected: 06/11/2024 (Approximate), Expires: 06/11/2025 [facility] Comment on above: Expected: 06/11/2024 (Approximate), Expires: 06/11/2025 Start: 06-11-2024 End: 06-11-2025 Lipid 1996 panel - Serum or Plasma Lipid panel Lab Routine Screening for cardiovascular condition Screening for lipid disorders Other hyperlipidemia ([facility]) Expected: 06/11/2024 (Approximate), Expires: 06/11/2025 [facility] Comment on above: Expected: 06/11/2024 (Approximate), Expires: 06/11/2025 Start: 06-07-2024 Influenza vaccination Influenza Vacc ine (#1) [facility] Start: 05-15-2024 Medicare Annual Wellness (AWV) Medicare Annual Wellness (AWV) [facility] Start: 11-15-2023 End: 11-15-2023 Patient encounter procedure 11/15/2023 1:00 PM EST Office Visit [facility] [address] [place] [phone] Yarelis Mcallister, [employer] BENDER [address] [place], [place] [phone] [facility] Start: 06-07-2023 Influenza vaccination Influenza Vacc ine (#1) [facility] Start: 06-07-2020 Influenza vaccination Flu vaccine (# 1) [place], [place] Start: 11-27-2019 Annual Wellness Visi t (AWV) Annual Wellness Visit (AWV) [place] Start: 2017 Pneumococcal 65+ yea rs Vaccine (1 of 1 - PPSV23) Pneumococcal 65+ years Vaccine (1 of 1 - PPSV23) [place] Start: 2002 Shingles Vaccine (1 of 2) Shingles Vaccine (1 of 2) [place] Start: 1992 Diabetes screen Diabetes screen [place], [place] Start: 1971 DTaP/Tdap/Td vaccine (1 - Tdap) DTaP/Tdap/Td vaccine (1 - Tdap) [place] Start: 1962 Lipid panel Lipid screen [place], [place] Start: 1952 Abdominal aortic aneurysm screening AAA screen [place], [place] Start: 1952 Creatinine measurement Creatinine mo [place]itoring [place], [place] Start: 1952 Hepatitis C screening Hepatitis C sc reen [place], [place] Start: 1952 Potassium monitoring Potassium monit oring [place], [place] Start: 1952 Screening for malign ant neoplasm of colon [facility] Start: 1952 TSH Qn TSH testing [place], [place] EKG 12 Lead EKG 12 Lead ECG STAT 04/22/2020 8:41 AM EDT [place] Immunizations Immunization Date Immunization Notes Care Provider Fa [facility] 07-06-2024 ABRYSVO - Respirator y syncytial virus (RSV), vaccine, bivalent, protein subunit RSV prefusion F, diluent reconstituted, 0.5 mL, PF Amilcar Lindsay DPM Work Phone: [facility] 06-12-2024 influenza, high dose seasonal, preservative-free Amilcar Lindsay DPM Work Phone: [facility] 06-12-2024 influenza virus vacc ine, unspecified formulation Yarelis Mcallister [employer]ER Work Phone: [facility] 07-06-2023 SARS-COV-2 (COVID-19 ) vaccine, mRNA, spike protein, LNP, PF, antony-sucrose, 30 mcg/0.3 mL Yarelis Mcallister [employer]ER Work Phone: [facility] 07-06-2023 influenza virus vacc ine, unspecified formulation Yarelis Mcallister [employer]ER Work Phone: [facility] 07-02-2023 Influenza, Seasonal, Quadrivalent, Adjuvanted Amilcar Lindsay DPM Work Phone: [facility] 07-24-2022 SARS-COV-2 (COVID-19 ) vaccine, mRNA, spike protein, LNP, bivalent, preservative free, 30 mcg/0.3 mL dose, antony-sucrose formulation Yarelis Mcallister [employer]ER Work Phone: [facility] 07-10-2022 influenza virus vacc ine, unspecified formulation Yarelis Mcallister [employer]ER Work Phone: [facility] 06-21-2022 influenza, high dose seasonal, preservative-free Yarelis Mcallister [employer]ER Work Phone: [facility] 06-21-2022 Influenza, High-dose Seasonal, Quadrivalent, Preservative Free Yarelis Mcallister [employer] Work Phone: [facility] 07-14-2021 influenza, high dose seasonal, preservative-free Yarelis Mcallister [employer]ER Work Phone: [facility] 07-14-2021 Influenza, High-dose Seasonal, Quadrivalent, Preservative Free Yarelis Mcallister [employer]ER Work Phone: [facility] 07-07-2021 influenza virus vacc ine, unspecified formulation Yarelis Mcallister NEON TUBE BENDER Work Phone: [facility] 07-06-2021 Pfizer Purple Cap SARS-CoV-2 Vaccination Yarelis Mcallister NEON TUBE BENDER Work Phone: [facility] 12-05-2020 SARS-CoV-2, Unspecified Sreekanthkathe bubba Mcallister NEON TUBE BENDER Work Phone: [facility] 11-24-2020 Pfizer Purple Cap SARS-CoV-2 Vaccination Yarelis Mcallister NEON TUBE BENDER Work Phone: [facility] 11-03-2020 Pfizer Purple Cap SARS-CoV-2 Vaccination Yarelis Mcallister NEON TUBE BENDER Work Phone: [facility] 10-27-2020 pneumococcal conjuga te vaccine, 13 valent Yarelis Dayerson NEON TUBE BENDER Work Phone: [facility] 10-27-2020 pneumococcal polysaccharide vaccine, 23 valent Yarelis Mcallister NEON TUBE BENDER Work Phone: [facility] 07-04-2020 Influenza, High-dose Seasonal, Quadrivalent, Preservative Free Yarelis Mcallister NEON TUBE BENDER Work Phone: [facility] 08-03-2019 influenza, injectabl e, quadrivalent, preservative free Yarelis Mcallister NEON TUBE BENDER Work Phone: [facility] 04-29-2019 pneumococcal polysaccharide vaccine, 23 valent Yarelis Mcallister NEON TUBE BENDER Work Phone: [facility] 04-29-2019 tetanus toxoid, redu maureen diphtheria toxoid, and acellular pertussis vaccine, adsorbed Yarelis Mcallister NEON TUBE BENDER Work Phone: [facility] 10-03-2018 influenza, high dose seasonal, preservative-free Yarelis Mcallister NEON TUBE BENDER Work Phone: [facility] 09-25-2018 zoster vaccine recombinant Yarelis Mcallister NEON TUBE BENDER Work Phone: [facility] 08-26-2018 zoster vaccine recombinant Yarelis Mcallister NEON TUBE BENDER Work Phone: [facility] 03-26-2018 zoster vaccine recombinant Yarelis Mcallister NEON TUBE BENDER Work Phone: [facility] 02-25-2018 pneumococcal conjuga te vaccine, 13 valent Yarelis Mcallister NEON TUBE BENDER Work Phone: [facility] 02-25-2018 zoster vaccine recombinant Yarelis Mcallister NEON TUBE BENDER Work Phone: [facility] 01-05-2006 TD(adult) unspecifie d formulation Yarelis Mcallister NEON TUBE BENDER Work Phone: [facility] Payers Date Payer Category Payer Medicare MEDICARE MEDICAR E PART A AND B [id number] 2019-Present [phone] [place] [address] [id number] 2019 Unknown GENERIC MANAGED CARE GENERIC MANAGED CARE [id number] 2019-Present [id number] 2017 Medicare [id number] 2017 Private Health Insurance [id number] .[id number] 5 2017 Unknown [id number] .[id number] 2010 Unknown VACCN [employer]UM [id number] .[id number] 2010 Unknown [id number] 1959 Medicare [id number] 1959 Unknown [id number] 1952 Unknown [id number] 2.16840.1.100754.3.579 .2.647 1952 Unknown [id number] 2.16840.1.998454.3.579 .2.593 1952 Unknown [id number] 2.16840.1.108591.3.579 .2.593 1952 Unknown [id number] 2.16.840.1.001278.3.579 .2.593 1952 Unknown [id number] 2.16.840.1.024671.3.579 .2.593 1952 Unknown [id number] 2.16.840.1.874653.3.579 .2.593 1952 Unknown [id number] 2.16.840.1.901016.3.579 .2.593 1952 Unknown [id number] 2.16.840.1.672404.3.579 .2.593 1952 Unknown [id number] 2.16.840.1.738187.3.579 .2.173 1952 Unknown [id number] 2.16.840.1.776080.3.579 .2.1259 1952 Unknown [id number] 2.16.840.1.731105.3.579 .2.1259 1952 Unknown [id number] 2.16.840.1.637306.3.579 .2.1259 1952 Unknown [id number] 2.16.840.1.947881.3.579 .2.1259 1952 Unknown [id number] 2.16.840.1.748689.3.579 .2.1259 1952 Unknown [id number] 2.16.840.1.213602.3.579 .2.1259 Social History Date Type Detail Facility Start: 04-22-2020 End: 06-11-2024 Tobacco smoking status NHIS Former smoker [facility] End: 11-24-2005 History of tobacco use Current smoker [place], [place] Start: 04-22-2020 End: 06-11-2024 Tobacco use and exposure Never used [place], [place] Start: 11-27-2019 History SDOH Social Connections Living 3 [place], [place] Start: 04-22-2020 Alcohol Comment glass of wine 1-2x/week [place] Start: 1950 Sex Assigned At Not on file [place] Exposure to SARS-CoV -2 (event) Not sure [place] End: 11-24-2005 History of tobacco use Cigarette Smoker [facility] Start: 05-15-2023 End: 06-10-2025 Alcohol intake Current drinker of alcohol (finding) [facility] Start: 05-15-2023 End: 06-10-2025 History of Social function [facility] Start: 05-15-2023 End: 06-10-2025 Alcohol Use Disorder Identification Test - Consumption [...] Drinks Not on file [facility] Start: 11-16-2012 Sex Male (finding) [facility] Functional Status Date Assessment Result Facility 06-10-2025 Patient Health Quest ionnaire 2 item (PHQ-2) [Reported] [facility] Clinical Notes 03-30-2020 to 07-12-2025 Yarelis Mcallister, JUAN - 06/10/2025 2:00 PM EDTTelephone Encounter - Bernice Bonilla, SUDHA - 12/24/2024 12:15 PM EDTTelephone Encounter - Bernice Bonilla, [place] - 12/24/2024 12:15 PM EDT Note Date & Type Note Facility 07-12-2025 Note DC Cardiology - [facility] Subjective Nettie Ramirez is a 75 y.o. year old male patient being seen for a 1 year follow up. Patient state he feels ok. Patient would like to talk about Entresto due to no longer being able to get it for free. [facility]. Patient denies chest pain, SOB/HIGHTOWER, fatigue, racing heart/palpitations. Patient complains of dizziness/lightheaded with position, bleeding/bruising. Problem List[1] Family History[2] Social History[3] HPI Visit of 12/11/2017: Nettie is seen in follow up after his recent admission to [facility] with new onset AFib, systolic CHF. He was found to have CAD with severe disease in a small OM and moderate disease in the circumflex. This was deemed better for medical therapy. His EF was found to be 25%. He underwent cardioversion twice as he failed the first one. He was started on eliquis, entresto, coreg, carvedilol and spironolactone. He is on furosemide 40 mg bic. He was discharged on amiodarone 400 mg bid and is now reduced to 400 mg daily. He has no chest pain, he is in NYHA class II. He has bilateral leg edema. He has no palpitations. He has occasional dizziness when walking. ECG 12/11/2017 showed atrial flutter with controlled rate of 79 bpm. ECG 10/23/2017 showed atrial flutter with controlled rate of 87 bpm. Echocardiogram 10/09/2017: Global left ventricular systolic function [...] pressure. 6. Mildly reduced cardiac output/cardiac index. Update 12/25/2017: After last visit I proceeded with cardioversion 12/16/2017 given that he was now on amiodarone. He did well. Currently in SR, ECG today showed sinus bradycardia at 46 bpm. He is in NYHA class II. He is using CPAP for MARIANGEL. He has no dizziness. Update 03/05/2018: He has been doing well. No chest pain. No dyspnea and no swelling. He has dizziness on standing up. Echocardiogram 03/04/2018: Global left ventricular systolic function is normal (Visually estimated EF 60%). No regional wall motion abnormality. Normal right ventricular systolic function. The left atrium is mildly enlarged. Unable to assess right sided pressures due to lack of measurable tricuspid regurgitation. No pericardial effusion. No significant valvular abnormalities Update 09/08/2018: He is seen in follow up. He has been well. He has no symptoms. He has no complaints. At last visit I stopped spironolactone given normalized EF. I also reduced carvedilol to 3.125 mg bid due to bradycardia. Update 03/25/2019: He is seen in follow up. He has been well. He has no symptoms. He has no complaints. No chest pain, dyspnea or leg swelling. TSH and LFTs 09/2018 were normal. PFTs were normal. Update 03/17/2020: He is seen in follow up via telemedicine. He had right foot surgery to correct bone abnormality, this was in 09/2019. No issues with the surgery. He has been well other than gaining some weight. He has no symptoms. He has no complaints. No chest pain, dyspnea or leg swelling. No bleeding issues. No palpitations. PFT 11/25/2019: normal. Visit of 05/07/2022: He is seen in follow-up. After last visit with ar, he underwent atrial fibrillation ablation on 01/04/[address] Brooks Gautam. He has been doing well. He has no angina and no heart failure symptoms. He has no palpitations. He has not had any issues with bleeding. He continues to take medications as prescribed. Most recent testing: labs 07/28/21: renal function normal, liver function normal, A1C 6.1, CBC normal, Cholesterol 132, triglycerides 100, HDL 48, LDL 64 Echocardiogram 03/07/2021 LV systolic function normal ejection fraction 60 to 65% Mild right atrial enlargement RV size and systolic function normal No significant valvular abnormalities ECG 09/13/2021: Sinus rhythm Visit after 05/08/2023: He is seen in follow-up. Today he reports that he has been doing well. He has no chest pain and no shortness of breath. He does have bilateral lower extremity edema. He has significant complaints of pain in the left knee and will be following with his PCP regarding that. Visit of 07/12/2025: He is seen in follow-up. He reports that he has been doing well from a cardiac perspective. He has not had chest pain or shortnes (more content not included)... [facility] 06-10-2025 History of Present illness Narrative Images from the original note were not included. Subjective : Chief Complaint: Nettie Ramirez is an 75 y.o. male here for an annual wellness visit. HPI Patient Reported S/S to Nurse: Reviewed HD- Went to urgent care since last visit for injury to left finger d/t hedge trimming injury-resolved at this time Being treated by [facility] podiatry for foot ulcer, completed atb therapy and ulcer nearly resolved Aware of open labs LABS- routine 12/2024; podiatry 03/2025 PSA- 11/28/2023- 0.10 HEP C SCREENING- COLON- colonoscopy- 04/2020- hemorrhoids; per Dr Jiménez- no need for further colonosocpies d/t age VACCINES- [email or web address] 10/2020; [email or web address] 04/2019; shingrix 2018; tdap 04/2019 MWV- 06/2025 [place]- Dr Dayan Flanagan/[facility] INSPECTOR AND UNLOADER-Dr Bills/Adia LIGHT ARMORED VEHICLE OFFICER- [facility] DENTIST- Dr Virgen OPTOMALOGIST- Dr Shaffer/[place] ORTHO- OIO- had MRI and is getting a brace made for his knee SCHOOL ADMINISTRATOR- Dr Ibrahim/[place] LIQUIFIED NATURAL GAS SPECIALIST- Dr Bray/[facility] I have reviewed and reconciled the medication [...] fatigue. Negative for fever. HENT: Positive for hearing loss. Negative for congestion, dental problem, ear pain, sore throat, tinnitus, trouble swallowing and voice change. Eyes: Negative for visual disturbance. Respiratory: Positive for apnea. Negative for cough, chest tightness, shortness of breath and wheezing. Cardiovascular: Negative for chest pain, palpitations and leg swelling. Gastrointestinal: Negative for abdominal distention, abdominal pain, blood in stool, constipation, diarrhea, nausea, rectal pain and vomiting. Genitourinary: Negative for difficulty urinating, dysuria, frequency, hematuria and urgency. Musculoskeletal: Positive for arthralgias. Negative for gait problem, joint swelling and myalgias. Skin: Positive for wound. Negative for pallor and rash. Neurological: Negative for dizziness, tremors, seizures, syncope, weakness, light-headedness, numbness and headaches. Psychiatric/Behavioral: Negative for agitation, behavioral problems, confusion, [...] DO as PCP - General (Family Medicine) Yarelis Mcallister NP as PCP - ACO Reach Medicare Annual Visit Over the past 2 weeks, how often have you been bothered by any of the following problems? Little interest or pleasure in doing things: Not at all Feeling down, depressed, or hopeless: Not at all Patient Health Questionnaire-2 Score: 0 Cuellar Fall Risk History of Falling, Immediate or Within 3 Months: No Secondary Diagnosis: Yes Ambulatory Aid: Walks without aid/bedrest/nurse assist Intravenous Therapy/Heparin Lock: No Gait/Transferring: Impaired Mental Status: Oriented to own ability Cuellar Fall Risk Score: 35 Health Risk Assessment Form Do you need help eating, bathing, using the toilet, dressing, or getting around your home?: No Can you prepare your own meals?: Yes Can you do your own housework without help?: Yes Can you shop for groceries or clothes without help?: Yes Do you exercise for about 20 minutes 3 or more days a week?: No How confident are you that you can control and manage most of your health problems?: Very confident Cognitive Screening Self Assessment: No overt cognitive deficiency is apparent by direct observation Three Word Registration: Apple, Watch, Shruti Clock Drawing: Normal Clock - 2 Three Word Recall: All 3 words correct - 3 Total Score (0-5 Points): 5 Pain Assessment Pain Score: 3 Objective : BP 106/62 Pulse 51 Ht 5' 7 Wt 203 lb SpO2 94% BMI 31.79 kg/m No results found. Physical Exam Vitals and nursing note reviewed. Constitutional: Appearance: Normal appearance. He is obese. He is not ill-appearing. HENT: Head: Normocephalic and atraumatic. Left Ear: Tympanic membrane normal. Eyes: Extraocular Movements: Extraocular movements intact. Conjunctiva/sclera: Conjunctivae normal. Pupils: Pupils are equal, round, and reactive to light. Neck: Vascular: No carotid bruit. Cardiovascular: Rate and Rhythm: Normal rate and regular rhythm. Pulses: Normal pulses. Heart sounds: Normal heart sounds. No murmur [...] is no abdominal tenderness. There is no guarding or rebound. Musculoskeletal: General: No swelling, tenderness, deformity or signs of injury. Normal range of motion. Cervical back: Normal range of motion and neck supple. Right lower leg: Edema present. Left lower leg: Edema present. Comments: Mild nonpitting edema ble Lymphadenopathy: Cervical: No cervical adenopathy. Skin: General: [...] Diagnoses and all orders for this visit: Wellness examination Wellness performed at office visit today. Height, weight, BMI, problem list, and immunizations records reviewed. Dental care discussed with patient. Encouraged annual vision screenings and semi-annual dental care. Encouraged to eat a diet that is rich in plant-based foods and lean protein. Encouraged regular periods of exercise. Limit or eliminate junk food and sources of excess calories. Encouraged to maintain open communication with provider regarding any changes in condition. Encouraged 150 minutes of exercise weekly or amount appropriate to current level of function. Discussed family/friend/social support and importance of maintaining emotional connections. Follow up as discussed. Patient verbalized understanding of importance of keeping open communication with health care providers. Obstructive sleep apnea syndrome The symptoms of obstructive sleep apnea have improved, the patient is benefiting from therapy, and should continue use of the PAP device encouraged at least 4 hours use nightly CPAP (continuous positive airway pressure) dependence See above 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 F/up cardiology- next appt 07/12/25 Chronic systolic heart failure (HCC) Elevate ble at rest Compression stockings ERON diet Essential hypertension Monitor and record blood pressure at home twice a day and bring log to each appointment. Reference goal under 140/80. Recommend following a heart healthy 2 gm sodium diet. Recommend 150 minutes of exercise weekly, goal is to have heart rate over 150 during exercise. BMI goal is 18.5-24.9. Work on stress management Quit smoking/drinking alcohol if applicable Paroxysmal atrial fibrillation (HCC) Avoid caffeine Manage stress Gastroesophageal reflux disease, unspecified whether esophagitis present Discussed no NSAIDS on empty stomach Avoid food irritants Fiber for routine bowel aide Sit upright at least 30 minutes after meals Erectile dysfunction, unspecified erectile dysfunction type managed Chronic ulcer of right heel with fat layer exposed (HCC) F/up podiatry every 1-2 weeks until resolved senior care current use of anticoagulant therapy Continue medication Report any uncontrolled bleeding to ER for treatment Hyperlipidemia LDL goal <70 Low fat high fiber diet Other hyperlipidemia - Lipid panel; Future Screening for lipid disorders - Lipid panel; Future Screening for cardiovascular condition - Lipid panel; Future Health Maintenance Topic Date Due Influenza Vaccine (1) 06/07/2025 Colorectal Cancer Screening 04/22/2030 Pneumococcal Vaccine: 65+ Years Completed Advance Care Planning Orders Placed This Encounter Procedures Lipid panel Standing Status: Future Number of Occurrences: 1 Expected Date: 06/10/2025 Expiration Date: 06/10/2026 Yarelis Mcallister NP There are no Patient Instructions on file for this visit. Follow up in about 6 months (around 12/08/2025) for chronic. documented in this encounter [facility] 12-24-2024 Telephone encounter Note Pt aware of her message and pts message. [facility] 12-24-2024 Miscellaneous Notes Pt aware of her message and pts message. Called pt, answered but stated he would have to call me back Labs are all as good if not better than previous draw No changes in poc has open telephone message too on labs documented in this encounter [facility] 12-24-2024 Telephone encounter Note Called pt, answered but stated he would have to call me back [facility] 12-23-2024 Telephone encounter Note Labs are all as good if not better than previous draw No changes in poc has open telephone message too on labs [facility] 09-15-2024 History of Present illness Narrative Images [...] HPI Established patient returns to clinic for [place] brace check. Overall he is doing well [...] fibrillation (CMS/HCC) 10/2017 CAD (coronary artery disease) ([facility]) History of kidney stones HTN (hypertension) ([facility]) Osteoporosis ([facility]) Medications Current Outpatient Medications: apixaban (Eliquis) 5 [...] 10/09/2017 CT ANGIOGRAM TAVR HEART CATH 10/2017 [facility] [place] CATHETER, ABLATION 12/2020 [place] FUSION FOOT BONES,SUBTALAR Right 09/2019 subtalar joint [...] elsewhere classified, right ankle M21.171 4. 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 Localized edema R60.0 Patient [...] Amilcar Lindsay DPM documented in this encounter [facility] 08-26-2024 Telephone encounter Note Patient brought brace in and Dr Lindsay did some adjustments. [facility] 08-26-2024 Miscellaneous Notes Patient brought brace in and Dr Lindsay did some adjustments. Pt said his right brace is bunching up as you trimmed the Lt brace, he was wondering if he can bring that brace in and if he could wait for it to be done or does he have to drop the brace off and quill picking machine operator later? documented in this encounter [facility] 08-26-2024 Telephone encounter Note Pt said his right brace is bunching up as you trimmed the Lt brace, he was wondering if he can bring that brace in and if he could wait for it to be done or does he have to drop the brace off and quill picking machine operator later? [facility] 08-24-2024 History of Present illness Narrative Images from the original note were not included. Subjective Patient ID: Nettie Ramirez is a 74 y.o. male who presents for Sulaiman Brace cartography supervisor ( Nettie Ramirez 74yo presents to quill picking machine operator BL [place] braces. SS: [id number].). HPI Established patient returns to clinic for Balta brace dispensing bilateral lower extremities. Review of [...] Medical History: Diagnosis Date Arthritis Atrial fibrillation ([facility]) 10/2017 CAD (coronary artery disease) ([facility]) History of kidney stones HTN (hypertension) ([facility]) Osteoporosis ([facility]) Medications Current Outpatient Medications: apixaban (Eliquis) 5 [...] 10/09/2017 CT ANGIOGRAM TAVR HEART CATH 10/2017 [facility] [place] CATHETER, ABLATION 12/2020 [place] FUSION FOOT BONES,SUBTALAR Right 09/2019 subtalar joint [...] of right ankle joint M25.371 6. CMT (Isxtwvk-Hmbks-Idbuv disease) G60.0 7. Difficulty walking R26.2 8. [...] Amilcar Lindsay DPM documented in this encounter [facility] 08-10-2024 Telephone encounter Note Patient's sulaiman braces B/L arrived, will call to schedule [facility] 08-10-2024 Miscellaneous Notes Patient's sulaiman braces B/L arrived, will call to schedule documented in this encounter [facility] 07-20-2024 History of Present illness Narrative Images from the original note were not included. Subjective Patient ID: Nettie Ramirez is a 74 y.o. male who presents for Casting For Braces Or Orthotics (Pt presents today with this spouse for casting/scanning for [place] braces BL/SS: [id number]). HPI Established patient returns to clinic for [place] brace casting. Review of Systems Constitutional: Positive [...] Medical History: Diagnosis Date Arthritis Atrial fibrillation ([facility]) 10/2017 CAD (coronary artery disease) ([facility]) History of kidney stones HTN (hypertension) ([facility]) Osteoporosis ([facility]) Medications Current Outpatient Medications: apixaban (Eliquis) 5 [...] 10/09/2017 CT ANGIOGRAM TAVR HEART CATH 10/2017 [facility] [place] CATHETER, ABLATION 12/2020 [place] FUSION FOOT BONES,SUBTALAR Right 09/2019 subtalar joint [...] deformity of left foot M21.6X2 7. CMT (Boyldlr-Xwqfr-Kzotr disease) G60.0 Patient was examined and evaluated. Sulaiman brace is medically necessary due to severe deformity, instability, daily pain and difficulty with walking bilateral lower extremities. Additionally patient has preulcerative lesion plantar 5th metatarsal head on the right foot. The [place] brace will also provide offloading for this [...] was filled out appropriately and sent to [employer]. We will have patient return to clinic [...] Amilcar Lindsay DPM documented in this encounter [facility] 07-15-2024 History of Present illness Narrative Images from the original note were not included. Subjective Patient ID: Nettie Ramirez is a 74 y.o. male who presents for Foot Problem (74 yo NEON TUBE BENDER presents today with balance issues, foot pain. [...] Medical History: Diagnosis Date Arthritis Atrial fibrillation ([facility]/HCC) 10/2017 CAD (coronary artery disease) ([facility] [facility] History of kidney stones HTN (hypertension) ([facility] Osteoporosis ([facility] Medications Current Outpatient Medications: apixaban (Eliquis) 5 [...] 10/09/2017 CT ANGIOGRAM TAVR HEART CATH 10/2017 [facility] [place] CATHETER, ABLATION 12/2020 [place] FUSION FOOT BONES,SUBTALAR Right 09/2019 subtalar joint [...] of right ankle joint M25.371 6. CMT (Rtmlyxg-Nhdtp-Sflcu disease) G60.0 7. Acquired equinus deformity of left foot M21.6X2 8. Difficulty walking R26.2 Patient examined and evaluated. Patient has cavovarus deformity with metatarsus adductus bilaterally leading to lateral column overload. I suspect underlying CMT as well given his mild neuropathy and weakness. Discussed treatment options at length. He is in excellent candidate for bilateral [place] braces due to varus instability and preulcerative lesion along the 5th metatarsal head of the right foot. [place] braces are medically necessary to help with [...] Amilcar Lindsay DPM documented in this encounter [facility] 06-11-2024 History of Present illness Narrative Subjective [...] not helping. Interested in referral to a relief manager. C/o poor balance, questioning if PT would be beneficial Reviewed 11/2023 labs with pt-sent to lab to update Not sure when he sees the [place] next LABS- routine 11/2023 PSA- 11/28/2023- 0.10 HEP C SCREENING- COLON CANCER SCREENING- colonoscopy- 04/2020- hemorrhoids; per Dr Jiménez- no need for further colonosocpies d/t age VACCINES- [id number] 10/2020; [id number] 04/2019; shingrix 2017; tdap 04/2019 MWV- 06/2024 [facility]- Dr Dayan Flanagan/Jimmy [place] INSPECTOR AND UNLOADER-Dr Bills/Adia LIGHT ARMORED VEHICLE OFFICER- Dr Milligan and Dr Frank- PRN DENTIST- Dr Virgen OPTOMALOGIST- Dr Shaffer/[place] ORTHO- OIO- had MRI and is getting a brace made for his knee SCHOOL ADMINISTRATOR- Dr Ibrahim/[place] LIQUIFIED NATURAL GAS SPECIALIST- Dr Bray/ELVIN I have reviewed and reconciled the medication [...] at all Patient Health Questionnaire-2 Score: 0 Cuellar Fall Risk History of Falling, Immediate or [...] apparent by direct observation Three Word Registration: Jelena [place] Clock Drawing: Normal Clock - 2 [...] nightly of device Chronic systolic heart failure ([facility]HCC) ERON Elevate ble at rest Essential hypertension ([facility] Monitor bp at home dialy and bring logs to appts Paroxysmal atrial fibrillation ([facility] Continue medication 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 ([facility]) Manage lifestyle factors Gastroesophageal reflux disease, unspecified whether esophagitis present Sit upright at least 30 minutes after meals Erectile dysfunction, unspecified erectile dysfunction type managed Sensorineural hearing loss (SNHL) of both ears Wear hearing aides 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 Follow up in about 6 months (around 12/09/2024). documented in this encounter [facility] 03-30-2020 Note PROCEDURE: XR FOOT R [...] authenticated by: DARRYL GRIDER Date: 2020-03-30 11:[address] [facility] Evaluation note Diagnosis Varus deformity, not elsewhere classified, left ankle- Primary Other acquired deformities of right foot Varus deformity, not elsewhere classified, right ankle Instability of left ankle joint Instability of right ankle joint CMT (Sfplser-Yctxs-Xrtcf disease) Peroneal muscular atrophy Acquired equinus deformity of left foot Difficulty walking Difficulty in walking documented in this encounter [facility] note* Diagnosis Other acquired deformities of right foot- Primary Varus deformity, not elsewhere classified, left ankle Varus deformity, not elsewhere classified, right ankle Instability of left ankle joint Instability of right ankle joint Acquired equinus deformity of left foot CMT (Mckxonn-Rlcjc-Mnbvm disease) Peroneal muscular atrophy documented in this encounter [facility] HealthcareEvaluation note* Diagnosis Other acquired deformities of right foot- Primary Varus deformity, not elsewhere classified, left ankle Varus deformity, not elsewhere classified, right ankle Instability of left ankle joint Instability of right ankle joint CMT (Tzwgmlf-Rrmyh-Rjvkh disease) Peroneal muscular atrophy Difficulty walking Difficulty in walking Acquired equinus deformity of left foot documented in this encounter [facility] HealthcareEvaluation note* Diagnosis Other acquired deformities of right foot- Primary Varus deformity, not elsewhere classified, left ankle Varus deformity, not elsewhere classified, right ankle CMT (Ystagtd-Gmlpl-Shtaa disease) Peroneal muscular atrophy Localized edema Edema documented in this encounter [facility] HealthcareEvaluation note* Diagnosis Medicare annual wellness visit, subsequent- Primary Screening for cardiovascular condition Screening for other and unspecified cardiovascular conditions Screening for lipid disorders Other hyperlipidemia (CMS/HCC) Hyperglycemia Other abnormal glucose Inversion deformity of left foot Pain in left ankle and joints of left foot Poor balance Obstructive sleep apnea syndrome Obstructive sleep apnea (adult) (pediatric) CPAP (continuous positive airway pressure) dependence Dependence on other enabling machine Chronic systolic heart failure (CMS/HCC) Chronic systolic heart failure Essential hypertension (CMS/HCC) Unspecified essential hypertension Paroxysmal atrial fibrillation (CMS/HCC) Atrial fibrillation 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 (CMS/HCC) Gastroesophageal reflux disease, unspecified whether esophagitis present Erectile dysfunction, unspecified erectile dysfunction type Sensorineural hearing loss (SNHL) of both ears senior care current use of anticoagulant therapy Hyperlipidemia LDL goal <70 (CMS/HCC) Other and unspecified hyperlipidemia documented in this encounter [facility] Healthcare[facility] note* Diagnosis Wellness examination- Primary Obstructive sleep apnea syndrome Obstructive sleep apnea (adult) (pediatric) CPAP (continuous positive airway pressure) dependence Dependence on other enabling machine 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 Chronic systolic heart failure (HCC) Chronic systolic heart failure Essential hypertension Unspecified essential hypertension Paroxysmal atrial fibrillation (HCC) Atrial fibrillation Gastroesophageal reflux disease, unspecified whether esophagitis present Erectile dysfunction, unspecified erectile dysfunction type Chronic ulcer of right heel with fat layer exposed (HCC) 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 Hyperlipidemia LDL goal <70 Other and unspecified hyperlipidemia Other hyperlipidemia Screening for lipid disorders Screening for cardiovascular condition Screening for other and unspecified cardiovascular conditions documented in this encounter [facility] HealthcareReason for referral (narrative)* Consultation (Routine) - Pending Review Specialty Diagnoses / Procedures Referred By Jaycob braun Referred To Contact Podiatry Diagnoses Inversion deformity of left foot Pain in left ankle and joints of left foot Procedures [place] OFFICE/OUTPATIENT NEW HIGH MDM 60 MINUTES Yarelis Mcallister, NEON TUBE BENDER [address] [place] [id number] Shon Milligan MD [address] [place] [address] [place] [address] Referral ID Status Reason Start Date Expiration Date Visits Requested Visits Authorized [id number] Pending Review Specialty Services Required 06/15/2024 12/12/2024 1 1 * Rehabilitation - Outpatient (Routine) - Authorized Specialty Diagnoses / Procedures Referred By Jaycob braun Referred To Contact Physical Therapy Diagnoses Inversion deformity of left foot Pain in left ankle and joints of left foot Poor balance Procedures [place] OFFICE/OUTPATIENT NEW HIGH MDM 60 MINUTES Yarelis Mcallister, JUAN [address] [place] [id number] [facility] [address] [place] [id number] Referral ID Status Reason Start Date Expiration Date Visits Requested Visits Authorized [id number] Authorized Consult and Treat 06/15/2024 12/12/2024 10 10 [facility] Discharge Instructions * Instructions* Tigist Ramírez RN [...] Fiorella Norman RN documented in this encounter Advance Directives No Advanced Directives Records FoundDocuments on File Type Date Recorded Patient Switch Inspector Expl anation Advance Directives and Living Will Power of Peat Shredder Tender Documents on File Type Date Recorded Patient Switch Inspector Expl anation Advance Directives and Living Will 10/02/2018 2018-10-02 Power of attorney lawyer Documents on File Type Date Recorded Patient Switch Inspector Expl anation Advance Directives and Living Will 10/02/2018 2018-10-02 Power of attorney lawyer Summary Purpose Family History No Family History Records FoundNo Family History Records FoundNo Family History Records FoundNo Family History Records FoundNo Family History Records Found Additional Source Comments Reason for Visit (unrecogniz ed section and content) Status Reason Specialty Diagnoses / Procedures Referre d By Contact Referred To Contact Diagnoses Encounter for screening for malignant neoplasm of colon SCREENING, HX POLYPS Procedures [place] COLON CA SCRN NOT HI RSK IND [place] COLONOSCOPY FLX DX W/COLLJ SPEC WHEN PFRMD COLORECTAL CANCER SCREENING, NOT HIGH RISK Kena Jiménez I, DO [address] [facility] [address] [place] [phone] [facility] Reason Comments Foot Problem 74 yo NEON TUBE BENDER presents to day with balance issues, foot pain. Had surgery on right foot. Pt relates bottom of foot hurts when walking, pt's relates numbness in left foot. Walks on outsides of feet. Ongoing for a while. Specialty Diagnoses / Procedures Referred By Contmissael t Referred To Contact Podiatry Diagnoses Other acquired deformities of right foot Other acquired deformities of left foot custom bracing shoes/inserts Procedures [place] OFFICE/OUTPATIENT [facility] 60 MINUTES Shon Milligan MD [address] [place] [address] [place] [address] [facility] [address] [place] [address] Referral ID Status Reason Start Date Expiration Date V isits Requested Visits Authorized [id number] Closed Specialty Services Required 06/24/2024 12/21/2024 1 1 Reason Comments Casting For Braces Or Orthotics Pt prese nts today with this spouse for casting/scanning for [place] braces BLSS: 9EEEE Reason Onset Date Comments Advice Only 08/10/2024 [facility] Reason Onset Date Comments Advice Only 08/26/2024 Reason Comments [facility] cartography supervisor Nettie Ramirez [age]yo presents to quill picking machine operator BL [place] braces. SS: 9EEEE. Reason Comments Follow-up Established pt prese nts today for 3 week ricthie brace checkup, pt states left ankle will be swollen after taking off the brace. States it takes 45 minutes for the swelling to go down after. SS: 9EEEE Reason Comments Medicare Annual Wellness Visit Subsequen t Reason Onset Date Comments Results 12/23/2024 (unrecognized sect ion and content) No Status Records FoundNo Status Records FoundNo Status Records FoundNo Status Records FoundNo Status Records Found INFORMATION SOURCE (unrecogn ized section and content) DATE CREATED AUTHOR 03/16/2021 [facility] DATE CREATED AUTHOR AUTHOR'S ORGANIZ ATION 03/17/2021 [facility] DATE CREATED AUTHOR AUTHOR'S ORGANIZ ATION 04/03/[address] [facility] [place] [facility] DATE CREATED AUTHOR AUTHOR'S ORGANIZ ATION 06/12/2025 [facility] EPIC DATE CREATED AUTHOR AUTHOR'S ORGANIZ ATION 07/15/[address] [facility] Care Teams (unrecognized sec tion and content) Organizational Consultant Relationship Specialty Start Date End Date Nkechi Ghosh DO [address] [place] [phone] PCP - General Family Medicine 02/12/23 Organizational Consultant Relationship Specialty Start Date End Date Nkechi Ghosh DO [address] [place] [address] PCP - General Family Medicine 02/12/23 Yarelis Mcallister, JUAN [address] [place] [address] PCP - ACO Reach 07/07/24 Organizational Consultant Relationship Specialty Start Date End Date Nkechi Ghosh DO [address] [place] [address] PCP - General Family Medicine 02/12/23 Yarelis Mcallister, NEON TUBE BENDER [address] [place] [address] PCP - ACO Reach 07/07/24 Organizational Consultant Relationship Specialty Start Date End Date Nkechi Ghosh DO [address] [place] [address] PCP - General Family Medicine 02/12/23 Yarelis Mcallister, NEON TUBE BENDER [address] [place], [place] [phone] PCP - ACO Reach 07/07/24 Organizational Consultant Relationship Specialty Start Date End Date Nkechi Ghosh DO [address] [place] [address] PCP - General Family Medicine 02/12/23 Yarelis Mcallister, NEON TUBE BENDER [address] [place] [address] PCP - ACO Reach 07/07/24 Organizational Consultant Relationship Specialty Start Date End Date Nkechi Ghosh DO [address] [place] [address] PCP - General Family Medicine 02/12/23 Yarelis Mcallister, NEON TUBE BENDER [address] [place] [address] PCP - ACO Reach 07/07/24 Organizational Consultant Relationship Specialty Start Date End Date Nkechi Ghosh DO [address] [place] [address] PCP - General Family Medicine 02/12/23 Yarelis Mcallister, NEON TUBE BENDER [address] [place] [address] PCP - ACO Reach 07/07/24 Organizational Consultant Relationship Specialty Start Date End Date Nkechi Ghosh DO [address] [place] [address] PCP - General Family Medicine 02/12/23 Yarelis Mcallister, NEON TUBE BENDER [address] [place] [address] PCP - ACO Reach 07/07/24 Organizational Consultant Relationship Specialty Start Date End Date Nkechi Ghosh DO [address] [place] [address] PCP - General Family Medicine 02/12/23 Nkechi Ghosh DO [address] [place] [address] PCP - ACO Reach 12/06/23 Organizational Consultant Relationship Specialty Start Date End Date Nkechi Ghosh DO [address] [place] [address] PCP - General Family Medicine 02/12/23 Yarelis Mcallister, NEON TUBE BENDER [address] [place] [address] PCP - ACO Reach 07/07/24 Organizational Consultant Relationship Specialty Start Date End Date Nkechi Ghosh DO [address] [place] [address] PCP - General Family Medicine 02/12/23 Yarelis Mcallister, NEON TUBE BENDER [address] [place] [address] PCP - ACO Reach 07/07/24 Organizational Consultant Relationship Specialty Start Date End Date Nkechi Ghosh DO [address] [place] [address] [phone] PCP - General Family Medicine 11/27/19 Organizational Consultant Relationship Specialty Start Date End Date Nkechi Ghosh DO [address] [place] [address] [phone] PCP - General Family Medicine 02/12/23 Yarelis Mcallister, JUAN [address] [place] [address] [phone] PCP - ACO Reach 07/07/24 FOR RECORDS PERTAINING TO PATIENTS WHO ARE [...] BE BASED ON THE PRIMARY CLINICAL RECORDS. [facility]. provides no warranty or guarantee of the accuracy or completeness of information in this document.
--- NOTE | 2025-07-19 10:20 | CA_ITS ---
Patient Name: NETTIE HERNANDEZ MR#: [id number] : 1950 Exam Date: 07/19/2025 Ordering Doctor: DR ELIZABETH PAGE M.D. ECHOCARDIOGRAM REPORT PROCEDURE: CA ECHO DOPPLER COMPLETE INDICATIONS: Heart failure w/improved EF, Paroxysmal Afib COMPARISON: None. DESCRIPTION: COMPLETE ECHOCARDIOGRAM Real-time transthoracic echocardiography with 2D, M-mode, spectral and color flow Doppler performed. QUALITY: Technical quality was good. LEFT VENTRICLE: Normal chamber size. Mild concentric left ventricular hypertrophy. Global left ventricular systolic function is normal. LV EF: Estimated left ventricular ejection fraction is 60%. DIASTOLIC: ATRIAL SEPTUM: LEFT ATRIUM: Moderate dilatation. RIGHT ATRIUM: Mild dilatation. RIGHT VENTRICLE: Normal chamber size. Normal right ventricular systolic function. TRICUSPID VALVE: Normal mobility and thickness. No stenosis with trivial regurgitation. No evidence of pulmonary hypertension. RVSP 22 mmHg. MITRAL VALVE: Normal mobility and thickness. No evidence of mitral valve stenosis. There is no mitral annular calcification. Trivial mitral regurgitation. AORTIC VALVE: Normal trileaflet appearance. No visible sclerosis. Normal leaflet mobility. No evidence of aortic valve stenosis. Mild aortic regurgitation. AORTIC ROOT: Normal diameter and appearance, measuring 3.1 cm. The ascending aorta is normal in size measuring 2.6 cm. PULMONIC VALVE: Normal thickness and mobility. No stenosis. Trivial regurgitation. PERICARDIUM: No evidence of pericardial effusion. IVC: Collapses with inspiration. Normal size. PLEURA: CONCLUSION: 1. Mild concentric left ventricular hypertrophy with normal systolic function. Estimated LVEF is 60%. 2. Normal right ventricular size and systolic function. 3. Mild to moderate biatrial dilatation. 4. Mild aortic valve regurgitation. 5. Normal right-sided pressures. Adult Echocardiography Procedure Report Left Ventricle LVEDD (3.7 - 5.6 cm): 4.80 cm LVESD (2.2 - 4.0 cm): 2.96 cm LVIVS thickness (0.6 - 1.2 cm): 1.17 cm LVPW thickness (0.5 - 1.0 cm): 1.18 cm LVOT Max Gradient: 5.23 mm[Hg] LVOT Area (cm2): 1.14 m/s Peak Velocity (LVOT): 1.14 m/s Mean Velocity (LVOT): 0.67 m/s LVOT Diameter 2.22 cm Left Ventricular Ejection Fraction: 60% Left Atrium LA Volume Index (2D A2C): 43.00 ml/m2 Left Atrium Systolic Dimension: 4.44 cm Mitral Valve MV E to A Ratio: 0.98, 0.96 Mitral Valve A-Wave Peak Velocity: 0.84 m/s Mitral Valve E-Wave Peak Velocity: 0.81 m/s Right Ventricle RV Internal Diastolic Dimension: 3.58 cm Aorta AO Root Diam: 3.06 cm Ascending Ao Diam: 2.58 cm Aortic Valve AoV Area (Peak Vito): 3.15 cm2, 3.15 cm2 AoV Area (VTI): 2.70 cm2, 2.70 cm2 Deceleration [place]: 0.98 m/s2 Pressure Half-Time: 774.37 ms Peak Velocity(Antegrade Flow): 1.40 m/s Peak Gradient(Antegrade Flow): 7.87 mm[Hg] Mean Velocity(Antegrade Flow): 0.89 m/s Mean Gradient(Antegrade Flow): 3.82 mm[Hg] Velocity Time Integral: 35.24 cm Tricuspid Valve Peak Velocity (Regurgitant Flow): 2.19 m/s Pulmonic Valve Mean Gradient: 1.34 mm[Hg] Mean Velocity: 0.55 m/s Peak Velocity: 0.78 m/s, 0.83 m/s Peak Gradient: 2.76 mm[Hg], 2.43 mm[Hg] Right Atrium Right Atrium Systolic Pressure: 60.84 ml, 60.84 ml Dictated by: Elizabeth Page M.D. on 07/19/2025 at 18:37 Approved by: Elizabeth Page M.D. on 07/19/2025 at 18:41
== END 2025-07-19 10:07 | disposition home or self-care (01) ==
LOC: CARD 10:08
PROVIDERS: Visit Provider Internal Medicine Interventional Cardiology
DX: I50.20 Unspecified systolic (congestive) heart failure (principal); I48.0 Paroxysmal atrial fibrillation
CPT/HCPCS: 93306